=== PATIENT | male | born 1970 | race Caucasian/White ===

== ENCOUNTER 2016-12-26 11:59 | Emergency (ER) | payer BC, OTHER ==
[2016-12-26 12:13] VITALS: BMI 39.4
--- NOTE | 2016-12-26 12:38 | PDOC ---
History of Present Illness - History of Present Illness Initial Comments: 12/26/16 12:56 The patient is a 46 year old male, with a significant past medical history of hypertension (amlodipine), who presents to the emergency department with persistent but intermittent left epistaxis since Night. He reports being seen at urgent care at the onset of his nasal bleed where he was told he "may have a possible open wound. The patient states his left nostril was packed with gauze at the urgent care center, but reports changing the packing shortly after because he could not stand the pressure. He reports he has changed the packing numerous times since the onset of his epistaxis. He also reports he can taste the blood in the back of his throat. He denies history of blood thinners. He denies history of frequent nasal bleeds. He admits his air conditioner is constantly on at home. He denies chest pain, shortness of breath, headache and dizziness. He denies fever, chills, nausea, vomit, diarrhea and constipation. He denies dysuria, frequency, urgency and hematuria. Allergies: amoxicillin, penicillins, potassium clavulanate <Darcy Wolff - Last Filed: 12/26/16 13:04> <Javi Shore - Last Filed: 12/26/16 14:36> - General Chief Complaint: Nasal Bleeding Stated Complaint: NOSE BLEED Time Seen by Provider: 12/26/16 12:38 Past History <Darcy Wolff - Last Filed: 12/26/16 13:04> - Past Medical History HTN: Yes Psychiatric Problems: Yes (anxiety) - Surgical History Abdominal Surgery: Yes (HERNIA) Cholecystectomy: Yes - Immunization History Td Vaccination: Yes - Psycho/Social/Smoking Cessation Hx Anxiety: Yes Suicidal Ideation: No Smoking Status: Yes Smoking History: Current every day smoker Have you smoked in the past 12 months: Yes Number of Cigarettes Smoked Daily: 20 Information on smoking cessation initiated: Yes 'Breaking Loose' booklet given: 12/26/16 Hx Alcohol Use: No Drug/Substance Use Hx: No Substance Use Type: Alcohol <Javi Shore - Last Filed: 12/26/16 14:36> - Past Medical History Allergies/Adverse Reactions: Allergies Allergy/AdvReac Type Severity Reaction Status Date / Time amoxicillin trihydrate Allergy Itching Verified 12/26/16 12:08 [From Augmentin] Penicillins Allergy Itching Verified 12/26/16 12:08 potassium clavulanate Allergy Itching Verified 12/26/16 12:08 [From Augmentin] Home Medications: Ambulatory Orders Albuterol Sulfate Inhaler - [Ventolin HFA Inhaler -] 2 inh PO Q4H PRN #1 inh Amlodipine Besylate 5 mg PO DAILY 04/25/15 Paroxetine HCl [Paxil -] 20 mg PO DAILY 04/25/15 Review of Systems - Review of Systems HEENTM: Yes: Nose Bleeding. No: Throat Swelling Respiratory: No: Shortness of Breath Cardiac (ROS): No: Chest Pain Integumentary: No: Bruising <Javi Shore - Last Filed: 12/26/16 14:36> *Physical Exam - Vital Signs Last Vital Signs Temp Pulse Resp BP Pulse Ox 97.9 F 69 18 148/89 95 12/26/16 12:10 12/26/16 12:10 12/26/16 12:10 12/26/16 12:10 12/26/16 12:10 - Physical Exam Comments: 12/26/16 12:57 GENERAL: The patient is awake, alert, and fully oriented,obese, in no acute distress. HEAD: Normal with no signs of trauma. EYES: Pupils equal, round and reactive to light, extraocular movements intact, sclera anicteric, conjunctiva clear with no pallor. ENT: (+) small superficial laceration on left septal wall. Ears normal, nares patent, oropharynx clear without exudates. Moist mucous membranes. NECK: Normal range of motion, supple without lymphadenopathy, JVD, or masses. LUNGS: Breath sounds equal, clear to auscultation bilaterally. No wheeze/ crackles. HEART: Regular rate and rhythm, normal S1 and S2 without murmur or rub. ABDOMEN: Soft/nontender/nondistended. BS wnl. No guarding or rebound. No palpable masses. No hepatosplenomegaly. EXTREMITIES: Normal range of motion, no edema. No clubbing or cyanosis. No cords, erythema, or tenderness. NEUROLOGICAL: Cranial nerves II through XII grossly intact. Normal speech, normal gait. PSYCH: Normal mood, normal affect. SKIN: Warm, Dry, normal turgor, no rashes or lesions noted. <Darcy Wolff - Last Filed: 12/26/16 13:04> - Vital Signs Last Vital Signs Temp Pulse Resp BP Pulse Ox 97.9 F 69 18 148/89 95 12/26/16 12:10 12/26/16 12:10 12/26/16 12:10 12/26/16 12:10 12/26/16 12:10 <Javi Shore - Last Filed: 12/26/16 14:36> Medical Decision Making - Medical Decision Making 12/26/16 12:46 A portion of this note was documented by scribe services under my direction. I have reviewed the details of the note, within reason, and agree with the documentation with the following case summary and management plan written by me. 46-year-old male with history of hypertension not on blood thinners presents with persistent but intermittent epistaxis from the left naris for 2 days. Was seen at an urgent care yesterday, initially had nasal packing applied but he could not tolerate the pressure slowly removed it and applied a gauze, now presenting with persistent intermittent bleeding. No throat swelling or difficulty breathing. No history of recurrent epistaxis, denies any trauma or other stigmata of bleeding. Vital signs normal. Well-appearing and ambulating, speaking full sentences Gauze in place, no active bleeding, oropharynx is clear Upon removal of gauze, no active bleeding and naris clear. There is a 3mm linear supercifial abrasion/laceration to the septal wall of the L naris, a pinpoint portion of which still appears to be oozing. That small area was successfully cauterized, and the remainder of the naris looks very clean. No packing applied, will monitor for 30 minutes then dispo accordingly. 46-year-old with left-sided epistaxis. Vital signs stable, airway patent. Reassess, Will trial of Afrin and Afrin-soaked gauze if re-bleeds otherwise may require another packing. No indication for labs 12/26/16 13:29 No further bleeding, naris clear. Feels well, agrees with d/c plan. Provided afrin/gauze in case rebleeds. Understands precautions and return criteria. 12/26/16 13:59 Went to restroom after discharge then started bleeding again from Left nostril. Afrin spray and afrin-soaked gauze applied with temporary hemostasis. now recalls was on meloxicam for a few days, stopped 3 days ago. Will reassess after packing. 12/26/16 14:35 Again had excellent hemostasis after afrin packing, which was removed with resolution of bleed and dry naris. Wants to leave, and still strongly prefers to avoid packing. at bedside, they know to return if bleeding persists. Looks and feels well, will discharge again with ENT follow up. <Javi Shore - Last Filed: 12/26/16 14:36> *DC/Admit/Observation/Transfer - Attestations Scribe Attestion: 12/26/16 12:58 Documentation prepared by Darcy Wolff, acting as director medical writing for Javi Shore MD, <Darcy Wolff - Last Filed: 12/26/16 13:04> <Javi Shore - Last Filed: 12/26/16 14:36> Diagnosis at time of Disposition: Epistaxis - Discharge Dispostion Disposition: HOME Condition at time of disposition: Improved - Referrals Referrals: Freedom Teresa MD [Primary Care Provider] - Yan Rivers MD [Staff Physician] - - Patient Instructions Printed Discharge Instructions: DI for Nosebleed Additional Instructions: Activity as tolerated. Stay hydrated. A small laceration on the Left naris was still bleeding slowly and was cauterized. That seems to have stopped the bleeding. Avoid foreign bodies or forceful nose-blowing. If bleeding returns, spray Afrin 2 sprays, then soak the gauze with Afrin as instructed, insert into Left nostril, and apply pressure for 30 minutes. Then remove slowly. If still bleeding, return to the ER or go to ENT office. Continue your medications as previously prescribed by your physician. You should follow up with your primary doctor or ENT as needed regarding today' s emergency department visit. Return to the emergency department for any new or concerning symptoms, particularly persistent bleeding, swelling, lightheadedness or difficulty breathing.
[2016-12-26] MEDS ORDERED: OXYMETAZOLINE 0.05% NASAL SOLUTION 15 ML BOTTLE NS ONE (12:44)
[2016-12-26] MEDS ORDERED: SILVER NITRATE 75% APPLIC STCK 1 PKT EACH ONE (12:52)
[2016-12-26 13:45] VITALS: BP 142/80; PULSE 65; TEMP 97.8
== END 2016-12-26 13:45 | disposition home or self-care (01) ==
LOC: JER 11:59
PROC: 0W3Q7ZZ Control Bleeding in Respiratory Tract, Via Natural or Artificial Opening (ICD-10-PCS; principal; 2016-12-26)
DX: R04.0 Epistaxis (principal); I10 Essential (primary) hypertension; F41.9 Anxiety disorder, unspecified; F17.210 Nicotine dependence, cigarettes, uncomplicated
CPT/HCPCS: 30901-25; 99282-25

== ENCOUNTER 2019-09-06 05:09 | Emergency (ER) | payer OTHER ==
[2019-09-06 05:20] VITALS: BP 108/72; PULSE 63; TEMP 97.6; BMI 33.7
--- NOTE | 2019-09-06 05:29 | PDOC ---
*Physical Exam - Vital Signs Last Vital Signs Temp Pulse Resp BP Pulse Ox 97.6 F 63 18 108/72 97 09/06/19 05:10 09/06/19 05:10 09/06/19 05:10 09/06/19 05:10 09/06/19 05:10 Medical Decision Making - Medical Decision Making 09/06/19 05:29 Patient seen by the advanced practice provider under my supervision. Ancillary testing reviewed as necessary. I agree with plan as outlined by the advanced practice provider. Discharge - Discharge Information Problems reviewed: Yes Clinical Impression/Diagnosis: Dental abscess Condition: Stable Disposition: HOME - Additional Discharge Information Prescriptions: Clindamycin [Cleocin -] 300 mg PO Q6HPO #40 capsule Ibuprofen 600 mg PO QID PRN #20 tablet PRN Reason: Pain - Follow up/Referral Referrals: Freedom Teresa MD [Primary Care Provider] - - Patient Discharge Instructions Patient Printed Discharge Instructions: DI for Dental Pain Additional Instructions: Rinse mouth with warm salty water. Take clindamycin as prescribed Take ibuprofen every 6 hours as needed for pain Follow-up with a dentist as soon as possible - Post Discharge Activity Work/Back to School Note: Back to Work
--- NOTE | 2019-09-06 05:38 | PDOC ---
History of Present Illness - General Chief Complaint: Toothache Stated Complaint: ORAL ABSCESS Time Seen by Provider: 09/06/19 05:26 History Source: Patient - History of Present Illness Initial Comments: 09/06/19 05:33 49-year-old male complaining of left lower dental abscess for the last 2 to 3 days getting worse. Denies fever/chills. Denies trouble swallowing, neck pain. Past medical history of hypertension Past History - Past Medical History Allergies/Adverse Reactions: Allergies Allergy/AdvReac Type Severity Reaction Status Date / Time amoxicillin trihydrate Allergy Itching Verified 09/06/19 05:17 [From Augmentin] Penicillins Allergy Itching Verified 09/06/19 05:17 potassium clavulanate Allergy Itching Verified 09/06/19 05:17 [From Augmentin] Home Medications: Ambulatory Orders Albuterol Sulfate Inhaler - [Ventolin HFA Inhaler -] 2 inh PO Q4H PRN #1 inh Amlodipine Besylate 5 mg PO DAILY 04/25/15 Paroxetine HCl [Paxil -] 20 mg PO DAILY 04/25/15 Clindamycin [Cleocin -] 300 mg PO Q6HPO #40 capsule 09/06/19 Ibuprofen 600 mg PO QID PRN #20 tablet 09/06/19 COPD: No HTN: Yes Psychiatric Problems: Yes (anxiety) - Surgical History Abdominal Surgery: Yes (HERNIA) Cholecystectomy: Yes - Immunization History Td Vaccination: Yes - Psycho Social/Smoking Cessation Hx Smoking Status: Yes Smoking History: Current every day smoker Have you smoked in the past 12 months: Yes Number of Cigarettes Smoked Daily: 20 Information on smoking cessation initiated: Yes 'Breaking Loose' booklet given: 12/26/16 Hx Alcohol Use: No Drug/Substance Use Hx: No Substance Use Type: Alcohol Review of Systems - Review of Systems Able to Perform ROS?: Yes Is the patient limited Greek proficient: No HEENTM: Yes: Dental Problems *Physical Exam - Vital Signs Last Vital Signs Temp Pulse Resp BP Pulse Ox 97.6 F 63 18 108/72 97 09/06/19 05:10 09/06/19 05:10 09/06/19 05:10 09/06/19 05:10 09/06/19 05:10 - Physical Exam General Appearance: Yes: Appropriately Dressed HEENT: positive: Other (left lower molar tooth decay, gum and facial swelling. no neck swelling.) Respiratory/Chest: positive: Lungs Clear, Normal Breath Sounds Medical Decision Making - Medical Decision Making 09/06/19 05:35 A: dental abscess P: clindamycin ibuprofen Discharge - Discharge Information Problems reviewed: Yes Clinical Impression/Diagnosis: Dental abscess Disposition: HOME - Additional Discharge Information Prescriptions: Clindamycin [Cleocin -] 300 mg PO Q6HPO #40 capsule Ibuprofen 600 mg PO QID PRN #20 tablet PRN Reason: Pain - Follow up/Referral Referrals: Freedom Teresa MD [Primary Care Provider] - - Patient Discharge Instructions Patient Printed Discharge Instructions: DI for Dental Pain Additional Instructions: Rinse mouth with warm salty water. Take clindamycin as prescribed Take ibuprofen every 6 hours as needed for pain Follow-up with a dentist as soon as possible - Post Discharge Activity Work/Back to School Note: Back to Work
[2019-09-06] MEDS ORDERED: IBUPROFEN 600 MG TABLET (FP) PO ONE ×2 (05:39→05:48)
== END 2019-09-06 06:01 | disposition home or self-care (01) ==
LOC: JER 05:09
DX: K04.7 Periapical abscess without sinus (principal); I10 Essential (primary) hypertension; F41.9 Anxiety disorder, unspecified; F17.210 Nicotine dependence, cigarettes, uncomplicated
CPT/HCPCS: 99282-25

== ENCOUNTER 2020-02-16 08:41 | Day surgery (SDC) | payer OTHER ==
[2020-02-13 14:29] VITALS: BMI 33.2
== END 2020-02-16 09:25 | disposition home or self-care (01) ==
LOC: FM/S 08:41 → FASUSAT 08:41 → UNDOADMIN 08:41 → UNDODISIN 09:25 → FASUSAT 09:25
PROVIDERS: ATTEND Orthopaedic Surgery Sports Medicine
PROC: 0SR90JZ Replacement of Right Hip Joint with Synthetic Substitute, Open Approach (ICD-10-PCS; principal; 2020-02-16)
DX: M16.11 Unilateral primary osteoarthritis, right hip (principal); Z53.09 Procedure and treatment not carried out because of other contraindication

== ENCOUNTER 2020-03-21 00:28 | Emergency (ER) | payer OTHER ==
[2020-03-21 00:46] VITALS: BP 134/82; PULSE 82; TEMP 98.6; BMI 30.2
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
[2020-03-21] MEDS ORDERED: IBUPROFEN 400 MG TABLET (FP) PO ONE ×2 (01:20→01:37)
[2020-03-21] MEDS ORDERED: ACETAMINOPHEN 1000 MG/100 ML VIAL (NON FORMULARY) IVPB ONE (01:20)
[2020-03-21] MEDS ORDERED: LIDOCAINE 5% TOPICAL PATCH TP ONE (01:20)
[2020-03-21] MEDS ORDERED: ACETAMINOPHEN INJECTION 100 ML IVPB ONE (01:37)
--- NOTE | 2020-03-21 02:06 | PDOC ---
Attending Attestation - Resident Resident Name: Giovanny Perry - ED Attending Attestation I have performed the following: I have examined & evaluated the patient, The case was reviewed & discussed with the resident, I agree w/resident's findings & plan, Exceptions are as noted - HPI HPI: 03/21/20 02:00 50 yo male with PMH of osteoarthritis, sciatica, hypertension p/w R hip pain x5 months. Denies any new trauma. Is scheduled for hip replacement in 2 weeks however states pain has been getting progressively worse and he couldn't take the pain so he came to the ED. Reports he's been walking with rolling walker for the past 2 months. Denies numbness or weakness in extremities. Has been taking advil for pain with insufficient relief. No other complaints. - Physicial Exam PE: 03/21/20 02:03 General: non-toxic appearing Extremities: warm and well perfused, no bony tenderness, flexion/extension of hips intact but pt. reports pain with movement, sensation intact to light touch, no gross deformities - Medical Decision Making 03/21/20 02:04 50 yo M here with progressive R hip pain 2/2 osteoarthritis, no new trauma or bony tenderness to suggest fx, no infectious complaints or fever and patient able to range at hip so very unliekly septic joint. Plan: -pain control -reassess, anticipate d/c home with return precautions, recommend ortho f/u This clinical encounter is taking place during a federal and state health care emergency attributable to the novel Pascal Virus pandemic. The [employer] of the Department of Health and Human Services has declared, pursuant to the Public Health Service Act 319F-3 (42 U.S.C. 247d-6d), that a covered persons activities related to medical countermeasures against COVID-19 will be immune from liability under Federal and State law. 03/21/20 04:03 Pt. with improvement in pain. Ambulatory in ED. Will d/c with return precautions, patient to f/u with orthopedics Discharge - Discharge Information Problems reviewed: Yes Clinical Impression/Diagnosis: Hip pain Condition: Stable Disposition: HOME - Follow up/Referral Referrals: Freedom Teresa MD [Primary Care Provider] - - Patient Discharge Instructions Additional Instructions: Continue your home regimen of ibuprofen and tylenol for pain control. Follow up with your PCP and Orthopedic Surgeon (Dr. Cortez) for further workup of your condition. Return to the ED if your symptoms worsen and/or you experience numbness/tingling in your lower extremities, inability to move your lower extremity, difficulty urinating or defecating, fevers, chills, chest pain, shortness of breath, leg swelling. - Post Discharge Activity
[2020-03-21] MEDS ORDERED: oxyCODONE HCL 5 MG TABLET PO ONE (02:47)
[2020-03-21] MEDS ORDERED: oxyCODONE HCL 5 MG TABLET ONE (02:58)
[2020-03-21] MEDS ORDERED: LIDOCAINE 5% TOPICAL PATCH ONE (03:01)
[2020-03-21] MEDS ORDERED: LIDOCAINE PATCH REMOVAL MC SCH (22:00)
== END 2020-03-21 04:30 | disposition home or self-care (01) ==
LOC: JER 00:28
PROC: 3E0333Z Introduction of Anti-inflammatory into Peripheral Vein, Percutaneous Approach (ICD-10-PCS; principal; 2020-03-21)
DX: M25.551 Pain in right hip (principal)
CPT/HCPCS: 99284-25; J0131

== ENCOUNTER 2020-03-26 13:30 | Inpatient (IN) | payer OTHER ==
--- NOTE | 2020-03-26 13:43 | PDOC ---
History of Present Illness - General Chief Complaint: Pain Stated Complaint: HIP PAIN Time Seen by Provider: 03/26/20 13:37 History Source: Patient Exam Limitations: No Limitations - History of Present Illness Initial Comments: 03/26/20 13:46 50y M with PMH of HTN, OA, Sciatica presenting to the ER for worsening R hip pain. Pt is scheduled to have hip replacement on Wednesday but pt is unable to walk or move without pain. Pt states he has been in bed for long periods of time due to the pain. Denies numbness, saddle anesthesia, back pain, weakness, n/v/d, fever, chills, falls, chest pain, sob, abdominal pain. Does notice swelling in feet bilaterally. No recent surgeries or trauma. Not on AC PMD: Brii PMH: see hpi Meds: see med rec Allergies: see allergy list Social: denies Past History - Medical History Allergies/Adverse Reactions: Allergies Allergy/AdvReac Type Severity Reaction Status Date / Time amoxicillin trihydrate Allergy Itching Verified 03/26/20 13:31 [From Augmentin] Penicillins Allergy Itching Verified 03/26/20 13:31 potassium clavulanate Allergy Itching Verified 03/26/20 13:31 [From Augmentin] Home Medications: Ambulatory Orders Amlodipine Besylate 5 mg PO DAILY 04/25/15 Paroxetine HCl [Paxil -] 20 mg PO DAILY 04/25/15 Ibuprofen 600 mg PO QID PRN #20 tablet 09/06/19 Lisinopril [Prinivil] 10 mg PO DAILY 02/13/20 Anemia: No Asthma: No Cancer: No Cardiac Disorders: No CVA: No COPD: No CHF: No Dementia: No Diabetes: No GI Disorders: No Disorders: No HTN: Yes Hypercholesterolemia: No Liver Disease: No Psychiatric Problems: Yes (anxiety) Seizures: No Thyroid Disease: No - Surgical History Abdominal Surgery: Yes (HERNIA) Appendectomy: No Cardiac Surgery: No Cholecystectomy: Yes Lung Surgery: No Neurologic Surgery: No Orthopedic Surgery: No - Immunization History Td Vaccination: Yes - Psycho-Social/Smoking History Smoking Status: Yes Smoking History: Current every day smoker Have you smoked in the past 12 months: Yes Number of Cigarettes Smoked Daily: 20 'Breaking Loose' booklet given: 12/26/16 Review of Systems - Review of Systems Constitutional: No: Symptoms Reported HEENTM: No: Symptoms Reported Respiratory: No: Symptoms reported Cardiac (ROS): No: Symptoms Reported ABD/GI: No: Symptoms Reported : No: Symptoms Reported Musculoskeletal: Yes: See HPI Integumentary: No: Symptoms Reported Neurological: No: Symptoms reported *Physical Exam - Physical Exam General Appearance: Yes: Nourished, Appropriately Dressed, Moderate Distress HEENT: positive: EOMI, TAYLOR Neck: positive: Trachea midline, Supple. negative: Lymphadenopathy (R), Lymphadenopathy (L) Respiratory/Chest: positive: Lungs Clear, Normal Breath Sounds Cardiovascular: positive: Regular Rhythm, Regular Rate, S1, S2. negative: Edema, JVD, Murmur Vascular Pulses: Dorsalis-Pedis (R): 2+, Doralis-Pedis (L): 2+ Gastrointestinal/Abdominal: positive: Normal Bowel Sounds, Soft. negative: Tender Musculoskeletal: positive: Other (R hip pain with active and passive ROM. no swelling. ). negative: CVA Tenderness Extremity: positive: Normal Capillary Refill, Pedal Edema (to ankles bilaterally) Integumentary: positive: Normal Color, Dry, Warm Neurologic: positive: sight effects specialist II-XII NML intact, Fully Oriented, Alert, Normal Mood/Affect, Normal Response, Motor Strength /5 ED Treatment Course - LABORATORY CBC & Chemistry Diagram: 03/26/20 14:06 03/26/20 14:06 - RADIOLOGY Radiology Studies Ordered: Category Date Time Status CXRPORT [CHEST X-RAY PORTABLE*] [RAD] Stat Radiology 03/26/20 13:41 Ordered DUPLEX VASCUL US-2LEGS [US] Stat Ultrasound 03/26/20 13:41 Ordered Medical Decision Making - Medical Decision Making 03/26/20 14:13 50y M with pmh of htn, oa, sciatica presenting for R hip pain, inability to ambulate. vitals wnl pt seen here 1 week ago for pain. operation scheduled for next Wednesday. -preop labs -US to r/o DVT -pain control ekg: nsr at 91bpm. no jenniffer or depressions. no signs of acute ischemia. normal intervals, normal axis. 03/26/20 18:45 pt unable to ambulate, has pain not controlled at home. outpt surgery scheduled next week. admit for obs for pain control, pt/ot and visiting home nurse. Discharge - Discharge Information Problems reviewed: Yes Clinical Impression/Diagnosis: Hip pain, right Osteoarthritis Qualifiers: Osteoarthritis location: hip Osteoarthritis type: unspecified Laterality: right Qualified Code(s): M16.11 - Unilateral primary osteoarthritis, right hip Condition: Stable - Admission Yes - Follow up/Referral - Patient Discharge Instructions - Post Discharge Activity
[2020-03-26 14:07] VITALS: BMI 30.2
--- NOTE | 2020-03-26 14:33 | PDOC ---
Documentation entered by Ishmael Alexandra SCRIBE, acting as scribe for Mary Anne Crouch DO. Mary Anne Crouch, DO: This documentation has been prepared by the Nasrin márquez Xhesika, SCRIBE, under my direction and personally reviewed by me in its entirety. I confirm that the documentation accurately reflects all work, treatment, procedures, and medical decision making performed by me. Attending Attestation - Resident Resident Name: DelisaMary Jo - ED Attending Attestation I have performed the following: I have examined & evaluated the patient, The case was reviewed & discussed with the resident, I agree w/resident's findings & plan, Exceptions are as noted - HPI HPI: 03/26/20 13:38 The patient is a 50 year old male with a significant PMH of who presents to the emergency department sent in by Dr. Russ for preop labs and admission for hip OA. Pt is scheduled for THR on Wednesday. Pt state he is not able to stand or care for himself. The patient denies chest pain, shortness of breath, headache and dizziness. Denies fever, chills, cough, nausea, vomiting, diarrhea. Allergies: NKDA PCP:Brii - Physicial Exam PE: 03/26/20 13:40 GENERAL: Awake, alert, and fully oriented, in no acute distress HEAD: No signs of trauma NECK: Normal ROM, supple, no lymphadenopathy, JVD, or masses LUNGS: Breath sounds equal, clear to auscultation bilaterally. No wheezes, and no crackles HEART: Regular rate and rhythm, normal S1 and S2, no murmurs, rubs or gallops ABDOMEN: Soft, nontender, normoactive bowel sounds. No guarding, no rebound. No masses EXTREMITIES: 2+ BLE edema and mild erythema. +R hip tenderness. Moving all extremities. Limited range of motion. No clubbing or cyanosis. NEUROLOGICAL: Cranial nerves II through XII grossly intact. SKIN: Warm, Dry, normal turgor - Medical Decision Making 03/26/20 14:31 a/p: 50yo male from home with worsening R OA hip pain -scheduled for OR with Dr. Russ for next wednesday, but unable to ambulate, get to the bathroom or care for himself -now with leg swelling, no calf ttp -will send preop labs -will send for duplex ultrasound to eval dvt prior to or -will need admission at to [facility] pending surgery 03/26/20 14:44 microblog sent to [facility] for admission 03/26/20 15:18 cxr clear 03/26/20 16:31 case discussed with [facility] who accepts pt to obs pt eval and social work eval placed Heart Score/ECG Review - ECG Intrepretation Comment:: 03/26/20 14:32 sinus at 91, nl axis, nl interval, no acute st/t wave findings Discharge - Discharge Information Problems reviewed: Yes Clinical Impression/Diagnosis: Hip pain, right Osteoarthritis Qualifiers: Osteoarthritis location: hip Osteoarthritis type: unspecified Laterality: right Qualified Code(s): M16.11 - Unilateral primary osteoarthritis, right hip Condition: Stable - Follow up/Referral Referrals: Freedom Teresa MD [Primary Care Provider] - - Patient Discharge Instructions - Post Discharge Activity
[2020-03-26 14:58] LABS: INR 1.06 (0.83-1.09); PROTHROMBIN TIME (PATIENT) 12.5 SEC (9.7-13.0)
[2020-03-26 15:01] LABS: ACTIVATED PTT 28.2 SECONDS (25.2-36.5)
[2020-03-26 15:03] LABS: BASO % 0.1 % (0-2.0); EOS % 0.1 % (0-4.5); HEMATOCRIT 38.9 % (35.4-49); HEMOGLOBIN 13.9 GM/dL (11.7-16.9); LYMPH % 7.7 % (8-40); MCH 32.6 pg (25.7-33.7); MCHC 35.6 g/dl (32.0-35.9); MEAN CELL VOLUME 91.7 fl (80-96); MEAN PLT VOLUME 8.3 fl (7.5-11.1); NEUT % 83.1 % (42.8-82.8); PLATELET COUNT 304 K/MM3 (134-434); RBC 4.25 M/mm3 (4.00-5.60); RDW 12.9 % (11.9-15.9); WHITE BLOOD COUNT 12.4 K/mm3 (4.0-10.0)
[2020-03-26 15:20] LABS: ALBUMIN 3.4 g/dl (3.4-5.0); BILIRUBIN,TOTAL 0.9 mg/dL (0.2-1); BLOOD UREA NITROGEN 4.8 mg/dL (7-18); CALCIUM 8.8 mg/dL (8.5-10.1); CREATININE 0.6 mg/dL (0.55-1.3); POTASSIUM 4.4 mmol/L (3.5-5.1); TOT PROT 7.2 g/dl (6.4-8.2)
--- OUTSIDE RECORDS SUMMARY | 2020-03-26 16:57 | XMS ---
:1970 Author Organization [facility] Support Name Relationship Address Phone UE, UNEMPLOYED Unavailable Unavailable Unavailable UE Unavailable Unavailable Unavailable [place] [address] [employer] [address] [place] [id number] CONSTANZA FELICIANO Other [address] [place] [address] Re-disclosure Warning The records that you are about to access may contain information from federally- assisted alcohol or drug abuse programs. If such information is present, then the following federally mandated warning applies: This information has been disclosed to you from records protected by federal confidentiality rules (42 CFR part 2). The federal rules prohibit you from making any further disclosure of this information unless further disclosure is expressly permitted by the written consent of the person to whom it pertains or as otherwise permitted by 42 CFR part 2. A general authorization for the release of medical or other information is NOT sufficient for this purpose. The Federal rules restrict any use of the information to criminally investigate or prosecute any alcohol or drug abuse patient.The records that you are about to access may contain highly sensitive health information, the redisclosure of which is protected by Article 27-F of the [facility] Public Health law. If you continue you may haveaccess to information: Regarding HIV / AIDS; Provided by facilities licensed or operated by the [facility] Office of Mental Health; or Provided by the [facility] Office for People With Developmental Disabilities. If such information is present, then the following [facility] mandated warning applies: This information has been disclosed to you from confidential records which are protected by state law. State law prohibits you from making any further disclosure of this information without the specific written consent of the person to whom it pertains, or as otherwise permitted by law. Any unauthorized further disclosure in violation of state law may result in a fine or correction sentence or both. A general authorization for the release of medical or other information is NOT sufficient authorization for further disclosure. Insurance Providers Payer name Policy type Policy ID Covered Covered democrat's Policy P sarah / Coverage democrat ID relationship to Landon Inf ormation type landon GERMAN [id number] EXCHANGE GERMAN [id number] 800 HEALTH NON CAP Results ID Date Data Source [id number] 02/12/2020 01:24:00 PM EDT [facility] Name Value Range Interpretation Description Data Sup porting Code Source(s) Document(s ) SARS [facility] coronavirus 2 RNA This lab was ordered by [facility] and reported by [facility]. Procedure
--- NOTE | 2020-03-26 22:50 | HP ---
CHIEF COMPLAINT: here with right hip pain and states "I am not able to walk". PCP: Dr. Freedom Teresa HISTORY OF PRESENT ILLNESS: 50 year old male with a past medical history of hypertension(on meds), depression, osteoarthritis and sciatica who presented with symptoms of worsening right hip pain. Patient is scheduled to have hip replacement on Wednesday with Dr. Ozzy Russ at [facility]. Patient reports he is unable to ambulate with severe pain he is having. Patient reports he has been in bed for long periods of time due to his pain. He denies numbness, back pain, weakness, n/v/d, fever, chills, falls, syncopy, chest pain, sob, abdominal pain. He is not on anticoagulation. ER course was notable for: (1)leukocytosis (WBC 12.4) (2)hyponatremia (sodium 120) Recent Travel: no PAST MEDICAL HISTORY: hypertension osteoarthritis sciatica PAST SURGICAL HISTORY: no Social History: Smoking:yes, current every day smoker Alcohol:no Drugs: no Allergies amoxicillin trihydrate [From Augmentin] Allergy (Verified 03/26/20 13:31) Itching Penicillins Allergy (Verified 03/26/20 13:31) Itching potassium clavulanate [From Augmentin] Allergy (Verified 03/26/20 13:31) Itching HOME MEDICATIONS: Home Medications Medication Instructions Recorded Amlodipine Besylate 5 mg PO DAILY 04/25/15 Paroxetine HCl [Paxil -] 20 mg PO DAILY 04/25/15 Ibuprofen 600 mg PO QID PRN #20 tablet 09/06/19 Lisinopril [Prinivil] 10 mg PO DAILY 02/13/20 REVIEW OF SYSTEMS CONSTITUTIONAL: Absent: fever, chills, diaphoresis, generalized weakness, malaise, loss of appetite, weight change HEENT: Absent: rhinorrhea, nasal congestion, throat pain, throat swelling, difficulty swallowing, mouth swelling, ear pain, eye pain, visual changes CARDIOVASCULAR: Absent: chest pain, syncope, palpitations, irregular heart rate, lightheadedness, peripheral edema RESPIRATORY: Absent: cough, shortness of breath, dyspnea with exertion, orthopnea, wheezing, stridor, hemoptysis GASTROINTESTINAL: Absent: abdominal pain, abdominal distension, nausea, vomiting, diarrhea, constipation, melena, hematochezia GENITOURINARY: Absent: dysuria, frequency, urgency, hesitancy, hematuria, flank pain, genital pain MUSCULOSKELETAL: Absent: myalgia, arthralgia, joint swelling, back pain, neck pain, severe right hip pain with difficulty with ambulation SKIN: Absent: rash, itching, pallor HEMATOLOGIC/IMMUNOLOGIC: Absent: easy bleeding, easy bruising, lymphadenopathy, frequent infections ENDOCRINE: Absent: unexplained weight gain, unexplained weight loss, heat intolerance, cold intolerance NEUROLOGIC: Absent: headache, focal weakness or paresthesias, dizziness, unsteady gait, seizure, mental status changes, bladder or bowel incontinence PSYCHIATRIC: Absent: anxiety, depression, suicidal or homicidal ideation, hallucinations. PHYSICAL EXAMINATION Vital Signs - 24 hr 03/26/20 03/26/20 03/26/20 13:31 13:35 17:27 Temperature 98.2 F 98 F 98.6 F Pulse Rate 88 Pulse Rate [ 78 71 Left Apical] Respiratory 16 16 16 Rate Blood Pressure 124/69 Blood Pressure 135/85 127/75 [Right Arm] O2 Sat by Pulse 95 98 97 Oximetry (%) 03/26/20 22:08 Temperature 98.4 F Pulse Rate Pulse Rate [ 65 Left Apical] Respiratory 16 Rate Blood Pressure Blood Pressure 125/68 [Right Arm] O2 Sat by Pulse 100 Oximetry (%) General no acute distress Vital signs reviewed afebrile Neuro no focal deficits Neck no JVD Lungs CTA nonlabored breathing effort no use of accessory muscles no rales no wheezing Heart s1s2 rate regular Abdomen soft nontender nondistended Extremities warm to touch no pitting edema no cyanosis linited ROM to right hip Skin nail beds and lips pink Laboratory Results - last 24 hr 03/26/20 03/26/20 03/26/20 14:06 14:06 14:06 WBC 12.4 H RBC 4.25 Hgb 13.9 Hct 38.9 MCV 91.7 MCH 32.6 MCHC 35.6 RDW 12.9 Plt Count 304 MPV 8.3 Absolute Neuts (auto) 10.3 H Neutrophils % 83.1 H Lymphocytes % 7.7 L Monocytes % 9.0 Eosinophils % 0.1 Basophils % 0.1 Nucleated RBC % 0 PT with INR 12.50 INR 1.06 PTT (Actin FS) 28.2 Sodium 120 L Potassium 4.4 Chloride 86 L Carbon Dioxide 25 Anion Gap 10 BUN 4.8 L Creatinine 0.6 Est GFR (CKD-EPI)AfAm 135.87 Est GFR (CKD-EPI)NonAf 117.23 Random Glucose 81 Calcium 8.8 Total Bilirubin 0.9 AST 98 H ALT 55 Alkaline Phosphatase 99 Total Protein 7.2 Albumin 3.4 Blood Type Antibody Screen 03/26/20 14:06 WBC RBC Hgb Hct MCV MCH MCHC RDW Plt Count MPV Absolute Neuts (auto) Neutrophils % Lymphocytes % Monocytes % Eosinophils % Basophils % Nucleated RBC % PT with INR INR PTT (Actin FS) Sodium Potassium Chloride Carbon Dioxide Anion Gap BUN Creatinine Est GFR (CKD-EPI)AfAm Est GFR (CKD-EPI)NonAf Random Glucose Calcium Total Bilirubin AST ALT Alkaline Phosphatase Total Protein Albumin Blood Type A POSITIVE Antibody Screen Negative ASSESSMENT/PLAN: 50 year old male with a past medical history of hypertension(on meds) ,osteoarthritis and sciatica who presented with symptoms of worsening right hip pain and was unable to ambulate He was found to have leukocytosis and severe hyponatremia. Admit to OBS status for pain control #1 right hip pain(severe) has leukocytosis (likely inflammatory), afebrile, nontachyccardic pending surgery with Dr. Ozzy Russ of Orthopedics on Wednesday at [facility] --c/w pain control --gave 1 dose of IV morphine 2 mg once --oxycodone 1 tab po q6h as needed --Orthopedics- Dr. Ozzy Russ consulted and further recs as per Orthopedics in the am --check sed rate --physical therapy consulted #2 hyponatremia (severe) 1/2 NS @ 75c /hr infusing renal studies normal --Nephrology- Dr. Ramirez consulted --monitor for neurological symptoms --repeat BMP in am #3 hypertension controlled --c/w lisinopril and amlodipine #4 transaminitis ast 98, alt 55 --avoid excessive tylenol (on percocet for severe right hip pain) --repeat LFT's in am FEN IVF 1/2 NS @ 75cc/hr BMP daily and replete electrolytes as needed regular diet DVT Prophlaxsis SCD's Family Medical History Family History: Unremarkable Visit type - Emergency Visit Emergency Visit: Yes ED Registration Date: 03/26/20 Care time: The patient presented to the Emergency Department on the above date and was hospitalized for further evaluation of their emergent condition. - New Patient This patient is new to me today: Yes Date on this admission: 03/26/20 - Critical Care Critical Care patient: No
[2020-03-26] MEDS ORDERED: SODIUM CHLORIDE 0.45% 1,000 ML IV SCH (23:00)
[2020-03-26] MEDS ORDERED: MORPHINE SULFATE 2 MG/ML VIAL IVPUSH ONE (23:00)
[2020-03-26] MEDS ORDERED: MORPHINE SULFATE 2 MG/ML VIAL ONE (23:03)
[2020-03-27] MEDS: oxyCODONE HCL 5 MG TABLET PO PRN ×3 (04:07→17:52)
[2020-03-27] MEDS: ACETAMINOPHEN 325 MG TABLET (FP) PO PRN ×3 (04:08→17:52)
[2020-03-27 08:26] LABS: HEMOGLOBIN 13.7 GM/dL (11.7-16.9); MCH 32.9 pg (25.7-33.7); MCHC 35.2 g/dl (32.0-35.9); MEAN CELL VOLUME 93.4 fl (80-96); PLATELET COUNT 301 K/MM3 (134-434); RBC 4.18 M/mm3 (4.00-5.60); RDW 13.2 % (11.9-15.9); WHITE BLOOD COUNT 8.5 K/mm3 (4.0-10.0)
[2020-03-27 08:50] LABS: ALBUMIN 3.1 g/dl (3.4-5.0); BILIRUBIN,DIRECT 0.3 mg/dL (0.0-0.2); BLOOD UREA NITROGEN 6.8 mg/dL (7-18); CALCIUM 8.3 mg/dL (8.5-10.1); CREATININE 0.5 mg/dL (0.55-1.3); MAGNESIUM 2.5 mg/dL (1.8-2.4); POTASSIUM 3.9 mmol/L (3.5-5.1); TOT PROT 6.8 g/dl (6.4-8.2)
--- NOTE | 2020-03-27 10:02 | EKG ---
Test Reason : Blood Pressure : / mmHG Vent. Rate : 091 BPM Atrial Rate : 091 BPM P-R Int : 144 ms QRS Dur : 096 ms QT Int : 370 ms P-R-T Axes : 073 070 041 degrees QTc Int : 455 ms POOR DATA QUALITY, INTERPRETATION MAY BE ADVERSELY AFFECTED NORMAL SINUS RHYTHM NORMAL ECG NO PREVIOUS ECGS AVAILABLE Confirmed by Hair Bass ([id number]) on 03/27/2020 10:02:38 AM Referred By: Confirmed By:Hair Bass
[2020-03-27] MEDS: PARoxetine HCL 20 MG TABLET PO SCH (10:55)
[2020-03-27] MEDS: LISINOPRIL 10 MG TABLET PO SCH (10:55)
[2020-03-27] MEDS: amLODIPine BESYLATE 5 MG TABLET (FP) PO SCH (10:56)
[2020-03-27] MEDS ORDERED: *DONT ORDER IVPB SCH (11:30)
[2020-03-27 12:34] LABS: EPI CELLS 1 /uL (0-25.1); HYALINE CASTS 0 /uL (0-3.1); PH,URINE 6.5 (5.0-8.0); URINE APPEARANCE CLEAR; URINE BACTERIA 20 /uL (0-1359); URINE BILIRUBIN NEGATIVE (NEGATIVE); URINE COLOR YELLOW; URINE GLUCOSE (UA) NEGATIVE (NEGATIVE); URINE KETONE TRACE (NEGATIVE); URINE LEUK ESTERASE NEGATIVE (NEGATIVE); URINE NITRITE NEGATIVE (NEGATIVE); URINE PROTEIN NEGATIVE (NEGATIVE); URINE RBC 11 /uL (0-23.9); URINE UROBILINOGEN 0.2 mg/dL (0.2-1.0); URINE WBC 3 /uL (0-25.8)
[2020-03-27] MEDS ORDERED: DEXTROSE 5%-WATER - 1,000 ML IV SCH (12:45)
--- NOTE | 2020-03-27 13:22 | CONSULT ---
Consultation: REQUESTING PROVIDER: Dr. Daigle CONSULT REQUEST: We have been asked to medically evaluate this patient for hyponatremia. HISTORY OF PRESENT ILLNESS: Patient is a 50 year old male with history of hypertension, depression, osteoarthritis and sciatica who presented with complaint of worsening right hip pain. Noted to be hyponatremic to 120, and started on 0.45% normal saline (received approx 1 Liter). BMP this morning revealed significant increase of sodium to 130. Patient admits that he had been taking diuretic (believes it was Hydrochlorothiazide) in the past, however was recently discontinued by his primary care physician due to concerns with his sodium. He endorses currently taking Lisinopril, and Amlodipine. Denies polydipsia. Denies subjective fevers, chills, shortness of breath, chest pain, palpitations, abdominal pain, nausua, vomiting, dysuria, hematuria. REVIEW OF SYSTEMS: As per HPI PHYSICAL EXAMINATION Vital Signs - 24 hr 03/26/20 03/26/20 03/26/20 13:31 13:35 17:27 Temperature 98.2 F 98 F 98.6 F Pulse Rate 88 Pulse Rate [ 78 71 Left Apical] Respiratory 16 16 16 Rate Blood Pressure 124/69 Blood Pressure 135/85 127/75 [Right Arm] O2 Sat by Pulse 95 98 97 Oximetry (%) 03/26/20 03/26/20 03/27/20 22:08 23:27 02:00 Temperature 98.4 F 98.7 F 98.5 F Pulse Rate 70 78 Pulse Rate [ 65 Left Apical] Respiratory 16 20 20 Rate Blood Pressure 118/57 L 136/70 Blood Pressure 125/68 [Right Arm] O2 Sat by Pulse 100 96 96 Oximetry (%) 03/27/20 03/27/20 03/27/20 02:39 06:00 11:00 Temperature 98.2 F 97.9 F Pulse Rate 71 72 Pulse Rate [ Left Apical] Respiratory 20 18 Rate Blood Pressure 122/76 116/65 Blood Pressure [Right Arm] O2 Sat by Pulse 96 97 Oximetry (%) GENERAL: The patient is awake, alert, and fully oriented, in no acute distress. HEAD: Normocephalic, atraumatic. EYES: PERRL, extraocular movements intact, sclera anicteric, conjunctiva clear. ENT: Oropharynx clear, without erythema or exudates. Moist mucous membranes. NECK: Trachea midline, full range of motion. Supple without lymphadenopathy. LUNGS: Breath sounds equal, clear to auscultation bilaterally. No wheezes, no crackles. No accessory muscle use. HEART: Regular rate and rhythm. S1, S2 without murmur, rub or gallop. ABDOMEN: Obese abdomen. Soft, nondistended, nontender to light and deep palpation x4 quadrants. No rebound tenderness, no guarding. Normoactive bowel sounds x4 quadrants. No hepatosplenomegaly, no masses appreciated. EXTREMITIES: 2+ radial, dorsalis pedis pulses bilaterally. Warm, well-perfused. No lower extremity edema bilaterally. NEUROLOGICAL: Cranial nerves II through XII grossly intact. Normal speech. No gross focal deficits. PSYCH: Normal mood, normal affect upon my encounter. SKIN: Warm, dry. Laboratory Results - last 24 hr 03/26/20 03/26/20 03/26/20 14:06 14:06 14:06 WBC 12.4 H RBC 4.25 Hgb 13.9 Hct 38.9 MCV 91.7 MCH 32.6 MCHC 35.6 RDW 12.9 Plt Count 304 MPV 8.3 Absolute Neuts (auto) 10.3 H Neutrophils % 83.1 H Lymphocytes % 7.7 L Monocytes % 9.0 Eosinophils % 0.1 Basophils % 0.1 Nucleated RBC % 0 ESR PT with INR 12.50 INR 1.06 PTT (Actin FS) 28.2 Sodium 120 L Potassium 4.4 Chloride 86 L Carbon Dioxide 25 Anion Gap 10 BUN 4.8 L Creatinine 0.6 Est GFR (CKD-EPI)AfAm 135.87 Est GFR (CKD-EPI)NonAf 117.23 Random Glucose 81 Serum Osmolality Calcium 8.8 Magnesium Total Bilirubin 0.9 Direct Bilirubin AST 98 H ALT 55 Alkaline Phosphatase 99 Total Protein 7.2 Albumin 3.4 Urine Color Urine Appearance Urine pH Ur Specific [place] Urine Protein Urine Glucose (UA) Urine Ketones Urine Blood Urine Nitrite Urine Bilirubin Urine Urobilinogen Ur Leukocyte Esterase Urine WBC (Auto) Urine RBC (Auto) Urine Casts (Auto) U Epithel Cells (Auto) Urine Bacteria (Auto) Urine Osmolality Ur Random Creatinine Ur Random Sodium Blood Type Antibody Screen 03/26/20 03/27/20 03/27/20 14:06 07:35 07:35 WBC 8.5 RBC 4.18 Hgb 13.7 Hct 39.0 MCV 93.4 MCH 32.9 MCHC 35.2 RDW 13.2 Plt Count 301 MPV 8.0 Absolute Neuts (auto) Neutrophils % Lymphocytes % Monocytes % Eosinophils % Basophils % Nucleated RBC % ESR PT with INR INR PTT (Actin FS) Sodium 130 L Potassium 3.9 Chloride 93 L Carbon Dioxide 29 Anion Gap 8 BUN 6.8 L Creatinine 0.5 L Est GFR (CKD-EPI)AfAm 146.45 Est GFR (CKD-EPI)NonAf 126.36 Random Glucose 71 L Serum Osmolality Calcium 8.3 L Magnesium 2.5 H Total Bilirubin Direct Bilirubin AST ALT Alkaline Phosphatase Total Protein Albumin Urine Color Urine Appearance Urine pH Ur Specific [place] Urine Protein Urine Glucose (UA) Urine Ketones Urine Blood Urine Nitrite Urine Bilirubin Urine Urobilinogen Ur Leukocyte Esterase Urine WBC (Auto) Urine RBC (Auto) Urine Casts (Auto) U Epithel Cells (Auto) Urine Bacteria (Auto) Urine Osmolality Ur Random Creatinine Ur Random Sodium Blood Type A POSITIVE Antibody Screen Negative 03/27/20 03/27/20 03/27/20 07:35 07:35 09:30 WBC RBC Hgb Hct MCV MCH MCHC RDW Plt Count MPV Absolute Neuts (auto) Neutrophils % Lymphocytes % Monocytes % Eosinophils % Basophils % Nucleated RBC % ESR 72 H PT with INR INR PTT (Actin FS) Sodium Potassium Chloride Carbon Dioxide Anion Gap BUN Creatinine Est GFR (CKD-EPI)AfAm Est GFR (CKD-EPI)NonAf Random Glucose Serum Osmolality 265 L Calcium Magnesium Total Bilirubin 1.0 Direct Bilirubin 0.3 H AST 79 H ALT 52 Alkaline Phosphatase 88 Total Protein 6.8 Albumin 3.1 L Urine Color Urine Appearance Urine pH Ur Specific [place] Urine Protein Urine Glucose (UA) Urine Ketones Urine Blood Urine Nitrite Urine Bilirubin Urine Urobilinogen Ur Leukocyte Esterase Urine WBC (Auto) Urine RBC (Auto) Urine Casts (Auto) U Epithel Cells (Auto) Urine Bacteria (Auto) Urine Osmolality Ur Random Creatinine 78.0 Ur Random Sodium < 18 L Blood Type Antibody Screen 03/27/20 03/27/20 09:30 09:30 WBC RBC Hgb Hct MCV MCH MCHC RDW Plt Count MPV Absolute Neuts (auto) Neutrophils % Lymphocytes % Monocytes % Eosinophils % Basophils % Nucleated RBC % ESR PT with INR INR PTT (Actin FS) Sodium Potassium Chloride Carbon Dioxide Anion Gap BUN Creatinine Est GFR (CKD-EPI)AfAm Est GFR (CKD-EPI)NonAf Random Glucose Serum Osmolality Calcium Magnesium Total Bilirubin Direct Bilirubin AST ALT Alkaline Phosphatase Total Protein Albumin Urine Color Yellow Urine Appearance Clear Urine pH 6.5 Ur Specific [place] 1.007 L Urine Protein Negative Urine Glucose (UA) Negative Urine Ketones Trace H Urine Blood Trace Urine Nitrite Negative Urine Bilirubin Negative Urine Urobilinogen 0.2 Ur Leukocyte Esterase Negative Urine WBC (Auto) 3 Urine RBC (Auto) 11 Urine Casts (Auto) 0 U Epithel Cells (Auto) 1 Urine Bacteria (Auto) 20 Urine Osmolality 211 L Ur Random Creatinine Ur Random Sodium Blood Type Antibody Screen Active Medications Generic Name Dose Route Start Last Admin Trade Name Freq PRN Reason Stop Dose Admin Acetaminophen 325 mg 03/26/20 23:00 03/27/20 10:57 Tylenol - PO 325 mg Q6H PRN Administration PAIN LEVEL 6-10 Amlodipine Besylate 5 mg 03/27/20 10:00 03/27/20 10:56 Norvasc - PO 5 mg DAILY KANWAL Administration Dextrose 1,000 mls @ 50 mls/hr 03/27/20 12:45 D5w - IV ASDIR KANWAL Lisinopril 10 mg 03/27/20 10:00 03/27/20 10:55 Prinivil PO 10 mg DAILY KANWAL Administration Oxycodone HCl 5 mg 03/26/20 23:00 03/27/20 10:56 Roxicodone - PO 5 mg Q6H PRN Administration PAIN LEVEL 6-10 Paroxetine HCl 20 mg 03/27/20 10:00 03/27/20 10:55 Paxil - PO 20 mg DAILY KANWAL Administration ASSESSMENT/PLAN: Patient is a 50 year old male with history of hypertension, depression, osteoarthritis and sciatica who presented with complaint of worsening right hip pain. Impression: Hyponatremia Hypertension Osteoarthritis Depression Sciatica Hip pain Plan: Suspect hyponatremia secondary to recent hydrochlrothiazide diuretic. Chart review reveals HCTZ was a home medication in February of this year. Sodium has been over-corrected. Recommend starting Dextrose 5% water at 50mL/ hour. Discontinued 0.45% sodium chloride. Follow repeat BMP- Ideally would not want to increase sodium greater than 8mmol /L over 24 hours. Monitor intake, output Avoid nephrotoxic agents Would avoid HCTZ going forward. Disposition: We will continue to follow the patient. Thank you for this consultative opportunity. Visit type - Emergency Visit Emergency Visit: Yes ED Registration Date: 03/26/20 Care time: The patient presented to the Emergency Department on the above date and was hospitalized for further evaluation of their emergent condition. - New Patient This patient is new to me today: Yes Date on this admission: 03/27/20 - Critical Care Critical Care patient: No ATTENDING PHYSICIAN STATEMENT I saw and evaluated the patient. I reviewed the resident's note and discussed the case with the resident. I agree with the resident's findings and plan as documented. SUBJECTIVE: OBJECTIVE: ASSESSMENT AND PLAN:
--- NOTE | 2020-03-27 13:57 | PN ---
Teaching Attending Note Name of Resident: Ashish Stephens (Nephrology) ATTENDING PHYSICIAN STATEMENT I saw and evaluated the patient. I reviewed the resident's note and discussed the case with the resident. I agree with the resident's findings and plan as documented. Renal Pt is a 50 year old male with pmhx of htn, depression and arthitis who persented with hip pain. He was found to be hyponatremic. His sodium was 120. He was started on fluids and it improved to 130 today. He is awake and alert. He was on a thiazide. pmhx htn depression sciatica arthritis social denies ros neg allergies amoxicillin pcn augmentin Laboratory Tests 03/26/20 03/26/20 03/27/20 14:06 14:06 07:35 WBC 12.4 H 8.5 Sodium 120 L Creatinine 0.6 Ur Specific [place] Urine Ketones Urine Osmolality Ur Random Sodium 03/27/20 03/27/20 03/27/20 07:35 09:30 09:30 WBC Sodium 130 L Creatinine 0.5 L Ur Specific [place] Urine Ketones Urine Osmolality 211 L Ur Random Sodium < 18 L 03/27/20 09:30 WBC Sodium Creatinine Ur Specific [place] 1.007 L Urine Ketones Trace H Urine Osmolality Ur Random Sodium Last Vital Signs Temp Pulse Resp BP Pulse Ox 97.9 F 72 18 116/65 97 03/27/20 11:00 03/27/20 11:00 03/27/20 11:00 03/27/20 11:00 03/27/20 06:00 Current Medications Generic Name Dose Route Start Last Admin Trade Name Freq PRN Reason Stop Dose Admin Acetaminophen 325 mg 03/26/20 23:00 03/27/20 10:57 Tylenol - PO 325 mg Q6H PRN Administration PAIN LEVEL 6-10 Amlodipine Besylate 5 mg 03/27/20 10:00 03/27/20 10:56 Norvasc - PO 5 mg DAILY KANWAL Administration Dextrose 1,000 mls @ 50 mls/hr 03/27/20 12:45 D5w - IV ASDIR KANWAL Lisinopril 10 mg 03/27/20 10:00 03/27/20 10:55 Prinivil PO 10 mg DAILY KANWAL Administration Oxycodone HCl 5 mg 03/26/20 23:00 03/27/20 10:56 Roxicodone - PO 5 mg Q6H PRN Administration PAIN LEVEL 6-10 Paroxetine HCl 20 mg 03/27/20 10:00 03/27/20 10:55 Paxil - PO 20 mg DAILY KANWAL Administration cardio s1s2 pulm clear gi soft ext trace edema neuro awake Impression 1. hyponatremia 2. htn 3. depression 4. sciatica 5. arthritis Plan - start d5w to slow the rate of correction - avoid a change in sodium of greater than 6 to 8 in 24 hours - stop hctz and would avoid - check cpk - paxil can also contribute to hyponatremia
--- NOTE | 2020-03-27 13:58 | PN ---
Teaching Attending Note Name of Resident: Isaiah Daigle ATTENDING PHYSICIAN STATEMENT I saw and evaluated the patient. I reviewed the resident's note and discussed the case with the resident. I agree with the resident's findings and plan as documented. SUBJECTIVE: Seen and examined at bedside. Sodium riccardo from 120-130 overnight status post in itiation of half-normal saline prior to diagnosis of because of hyponatremia. Patient started on D5W at 50 cc/h with every 4 hours BMPs. OBJECTIVE Last Vital Signs Temp Pulse Resp BP Pulse Ox 97.9 F 72 18 116/65 97 03/27/20 11:00 03/27/20 11:00 03/27/20 11:00 03/27/20 11:00 03/27/20 06:00 PE: Per resident note Labs/Imaging: reviewed ASSESSMENT/PLAN 50-year-old male past medical history of hypertension, osteoarthritis, sciatica with plan for hip surgery next week presented with intractable hip pain and unable to ambulate, found to have severe hyponatremia #Hyponatremia Patient reports sodium was low at PCP office a week or 2 ago but does not remember level. States medication was discontinued which may have been hydrochlorothiazide Confirm medical history Overcorrection of sodium with fluids overnight: Nephrology on board D5W at 50 cc/h Check BMP every 4 hours Goal max correction sodium of 10 per 24 hours #Right hip pain: Severe Pending surgery with Dr. Ozzy Russ of orthopedics on Wednesday at [facility] Pain control Physical therapy Patient is currently not cleared for surgery due to hyponatremia #Hypertension Continue home meds
[2020-03-27 14:34] LABS: CALCIUM 8.8 mg/dL (8.5-10.1); CREATININE 0.6 mg/dL (0.55-1.3); MAGNESIUM 2.6 mg/dL (1.8-2.4); POTASSIUM 3.9 mmol/L (3.5-5.1)
[2020-03-27 16:52] LABS: BLOOD UREA NITROGEN 7.7 mg/dL (7-18); CALCIUM 8.8 mg/dL (8.5-10.1); CREATININE 0.7 mg/dL (0.55-1.3)
--- NOTE | 2020-03-27 17:04 | CONSULT ---
Consult - text type - Consultation Consultation Note: ORTHOPEDIC SURGERY CONSULTATION NOTE Department of Orthopedic Surgery HISTORY OF PRESENT ILLNESS Mr. Ford is a 50 year old male who presents to [facility] with severe right hip pain, and inability to ambulate or take care of himself at home. The patient called my office yesterday stating he was in severe pain and unable to get out of his bed, and that he needed to come to the emergency room as he's unable to take care of himself. The orthopedic service was consulted for severe hip pain. The patient was initially scheduled for a hip replacement 1 month ago, but was postponed due to infected teeth. The patient was rescheduled for 04/01/2020. The patient notes severe hip pain to the point where he cannot not ambulate or get out of bed. Denies any other injuries. Denies numbness, tingling or other constitutional complaints. The patient works as at [employer]. Endorses tobacco use, denies drug use, alcohol is > 5 drinks a week as per my office notes. The patient lives at home and uses no assistive devices at baseline. FAMILY HISTORY non-contributory REVIEW OF SYMPTOMS A twelve-point review of systems was performed and was negative except as noted in HPI. PHYSICAL EXAM Constitutional: Alert and oriented to person, place, and time. Appears well- developed and well-nourished. No acute distress, appropriate mood and affect. Right Lower Extremity: Skin warm, dry, and intact; no lesions, rashes or ulcers noted. Muscle mass equal and symmetric to contralateral side. No atrophy noted. No masses or effusions noted. Tender to palpation at the greater trochanter; nontender throughout rest of extremity. No cords or calf tenderness No significant calf/ankle edema. LROM of the hip, consistent with my office examination. Full passive and active ROM of the knee and ankle and foot, free from pain. Joints stable with no pathologic laxity. EHL/TA/GS motor intact; SILT distally; 2+ DP pulses; Cap refill brisk. Tone and reflexes normal. Active Problems Problem Status Category Onset Hip pain, right Acute Medical Osteoarthritis Acute Medical Social History Smoking history Current every day smoker Aproximately how many 20 cigarettes per day Hx Alcohol Use YES Allergies Allergy/AdvReac Type Severity Reaction Status Date / Time amoxicillin trihydrate Allergy Itching Verified 09/22/20 13:31 [From Augmentin] Penicillins Allergy Itching Verified 03/26/20 13:31 potassium clavulanate Allergy Itching Verified 03/26/20 13:31 [From Augmentin] Active Medications Generic Name Dose Route Start Last Admin Trade Name Freq PRN Reason Stop Dose Admin Acetaminophen 325 mg 03/26/20 23:00 03/27/20 10:57 Tylenol - PO 325 mg Q6H PRN Administration PAIN LEVEL 6-10 Amlodipine Besylate 5 mg 03/27/20 10:00 03/27/20 10:56 Norvasc - PO 5 mg DAILY KANWAL Administration Lisinopril 10 mg 03/27/20 10:00 03/27/20 10:55 Prinivil PO 10 mg DAILY KANWAL Administration Oxycodone HCl 5 mg 03/26/20 23:00 03/27/20 10:56 Roxicodone - PO 5 mg Q6H PRN Administration PAIN LEVEL 6-10 Paroxetine HCl 20 mg 03/27/20 10:00 03/27/20 10:55 Paxil - PO 20 mg DAILY KANWAL Administration Vital Signs (last) Temp Pulse Resp BP Pulse Ox 98.2 F 84 18 127/66 95 03/27/20 14:49 03/27/20 14:49 03/27/20 14:49 03/27/20 14:49 03/27/20 14:49 Intake and Output 03/25/20 03/26/20 03/27/20 23:59 23:59 23:59 Intake Total 725 Output Total 750 Balance -25 Intake: IV 525 1/2 Normal Saline 1,000 525 ml @ 75 mls/hr IV ASDIR [facility] Rx#:[id number] Oral 200 Output: Urine 750 Void 750 Other: Voiding Method Urinal Urinal # Unmeasured Voids Void 2 Bowel Movement No Weight 205 lb Height 5 ft 9 in Body Mass Index (BMI) 30.2 Weight Measurement Method Built in Bedscale Laboratory 03/27/20 07:35 03/27/20 15:20 PT with INR 12.50 SEC (9.7-13.0) 03/26/20 14:06 PTT (Actin FS) 28.2 SECONDS (25.2-36.5) 03/26/20 14:06 IMAGING Right hip radiographs: Pending ASSESSMENT AND PLAN Mr. Ford is a 50 year old male presenting with severe right hip pain, originally scheduled for hip replacement surgery on 04/01/2020. Plan: 1. Pain control 2. DVT ppx 3. NWB RLE 4. Continue medical management 5. Workup tox screening for opiate / alcohol abuse 6. Will follow closely and will consider delay in surgery for further medical workup.
--- NOTE | 2020-03-27 17:59 | PN ---
Physical Exam: SUBJECTIVE: Patient seen and examined at bedside. C/o right lower extremity pain. OBJECTIVE: Vital Signs Period Temp Pulse Resp BP Sys/Isabel Pulse Ox Last 24 Hr 97.9 F-98.7 F 65-84 16-20 116-136/57-76 95-100 GENERAL: Mild distress. HEAD: Normal with no signs of trauma. EYES: EOMI Sclera Clear LUNGS: Clear b/l. Minimal wheezing throughout. HEART: RRR S1S2 No MRG ABDOMEN: Soft, NDNT EXTREMITIES: No CCE. NEUROLOGICAL: Cranial nerves II through XII grossly intact. Extensive lower extremity exam unable to obtain 2/2 patient non-compliance due to extreme pain. PSYCH: Normal mood, normal affect. Laboratory Results - last 24 hr 03/26/20 03/27/20 03/27/20 14:06 07:35 07:35 WBC 8.5 RBC 4.18 Hgb 13.7 Hct 39.0 MCV 93.4 MCH 32.9 MCHC 35.2 RDW 13.2 Plt Count 301 MPV 8.0 ESR Sodium 130 L Potassium 3.9 Chloride 93 L Carbon Dioxide 29 Anion Gap 8 BUN 6.8 L Creatinine 0.5 L Est GFR (CKD-EPI)AfAm 146.45 Est GFR (CKD-EPI)NonAf 126.36 Random Glucose 71 L Serum Osmolality Calcium 8.3 L Phosphorus Magnesium 2.5 H Total Bilirubin Direct Bilirubin AST ALT Alkaline Phosphatase Total Protein Albumin Urine Color Urine Appearance Urine pH Ur Specific [place] Urine Protein Urine Glucose (UA) Urine Ketones Urine Blood Urine Nitrite Urine Bilirubin Urine Urobilinogen Ur Leukocyte Esterase Urine WBC (Auto) Urine RBC (Auto) Urine Casts (Auto) U Epithel Cells (Auto) Urine Bacteria (Auto) Urine Osmolality Ur Random Creatinine Ur Random Sodium COVID-19 (NIKKI) Not detected 03/27/20 03/27/20 03/27/20 07:35 07:35 09:30 WBC RBC Hgb Hct MCV MCH MCHC RDW Plt Count MPV ESR 72 H Sodium Potassium Chloride Carbon Dioxide Anion Gap BUN Creatinine Est GFR (CKD-EPI)AfAm Est GFR (CKD-EPI)NonAf Random Glucose Serum Osmolality 265 L Calcium Phosphorus Magnesium Total Bilirubin 1.0 Direct Bilirubin 0.3 H AST 79 H ALT 52 Alkaline Phosphatase 88 Total Protein 6.8 Albumin 3.1 L Urine Color Urine Appearance Urine pH Ur Specific [place] Urine Protein Urine Glucose (UA) Urine Ketones Urine Blood Urine Nitrite Urine Bilirubin Urine Urobilinogen Ur Leukocyte Esterase Urine WBC (Auto) Urine RBC (Auto) Urine Casts (Auto) U Epithel Cells (Auto) Urine Bacteria (Auto) Urine Osmolality Ur Random Creatinine 78.0 Ur Random Sodium < 18 L COVID-19 (NIKKI) 03/27/20 03/27/20 03/27/20 09:30 09:30 13:28 WBC RBC Hgb Hct MCV MCH MCHC RDW Plt Count MPV ESR Sodium 127 L Potassium 3.9 Chloride 90 L Carbon Dioxide 27 Anion Gap 10 BUN 7.0 Creatinine 0.6 Est GFR (CKD-EPI)AfAm 135.87 Est GFR (CKD-EPI)NonAf 117.23 Random Glucose 103 Serum Osmolality Calcium 8.8 Phosphorus 4.0 Magnesium 2.6 H Total Bilirubin Direct Bilirubin AST ALT Alkaline Phosphatase Total Protein Albumin Urine Color Yellow Urine Appearance Clear Urine pH 6.5 Ur Specific [place] 1.007 L Urine Protein Negative Urine Glucose (UA) Negative Urine Ketones Trace H Urine Blood Trace Urine Nitrite Negative Urine Bilirubin Negative Urine Urobilinogen 0.2 Ur Leukocyte Esterase Negative Urine WBC (Auto) 3 Urine RBC (Auto) 11 Urine Casts (Auto) 0 U Epithel Cells (Auto) 1 Urine Bacteria (Auto) 20 Urine Osmolality 211 L Ur Random Creatinine Ur Random Sodium COVID-19 (NIKKI) 03/27/20 15:20 WBC RBC Hgb Hct MCV MCH MCHC RDW Plt Count MPV ESR Sodium 129 L Potassium 4.0 Chloride 91 L Carbon Dioxide 28 Anion Gap 10 BUN 7.7 Creatinine 0.7 Est GFR (CKD-EPI)AfAm 127.53 Est GFR (CKD-EPI)NonAf 110.04 Random Glucose 133 H Serum Osmolality Calcium 8.8 Phosphorus Magnesium Total Bilirubin Direct Bilirubin AST ALT Alkaline Phosphatase Total Protein Albumin Urine Color Urine Appearance Urine pH Ur Specific [place] Urine Protein Urine Glucose (UA) Urine Ketones Urine Blood Urine Nitrite Urine Bilirubin Urine Urobilinogen Ur Leukocyte Esterase Urine WBC (Auto) Urine RBC (Auto) Urine Casts (Auto) U Epithel Cells (Auto) Urine Bacteria (Auto) Urine Osmolality Ur Random Creatinine Ur Random Sodium COVID-19 (NIKKI) Active Medications Generic Name Dose Route Start Last Admin Trade Name Freq PRN Reason Stop Dose Admin Acetaminophen 325 mg 03/26/20 23:00 09/23/20 17:52 Tylenol - PO 325 mg Q6H PRN Administration PAIN LEVEL 6-10 Amlodipine Besylate 5 mg 03/27/20 10:00 03/27/20 10:56 Norvasc - PO 5 mg DAILY KANWAL Administration Lisinopril 10 mg 03/27/20 10:00 03/27/20 10:55 Prinivil PO 10 mg DAILY KANWAL Administration Oxycodone HCl 5 mg 03/26/20 23:00 03/27/20 17:52 Roxicodone - PO 5 mg Q6H PRN Administration PAIN LEVEL 6-10 Paroxetine HCl 20 mg 03/27/20 10:00 03/27/20 10:55 Paxil - PO 20 mg DAILY KANWAL Administration ASSESSMENT/PLAN: 50-year-old male past medical history of hypertension, osteoarthritis, sciatica with plan for hip surgery next week presented with intractable hip pain and unable to ambulate, found to have severe hyponatremia #Hyponatremia -Sodium was 120 on admission. Urine lytes not collected prior to infusion of Normal Saline Careful to not correct Sodium more than 8-10 mEQ in 24 hours to prevent Osmotic Demyelination D5W at 50 cc/h per Renal Check BMP every 4 hours -Renal on board Dr Morris. Recs appreciated #Right hip pain: Severe Pending surgery with Dr. Ozzy Russ. -Surgery may be deferred in light of hyponatremia Pain control Physical therapy #Hypertension C/w lisinopril and Norvasc #FEN No Fluids Monitor Electrolytes Sodium Controlled #DVT ppx: HepSQTID #Dispo Med Surg Visit type - Emergency Visit Emergency Visit: Yes ED Registration Date: 03/26/20 Care time: The patient presented to the Emergency Department on the above date and was hospitalized for further evaluation of their emergent condition. - New Patient This patient is new to me today: No - Critical Care Critical Care patient: No - Discharge Referral Referred to [facility] No ATTENDING PHYSICIAN STATEMENT I saw and evaluated the patient. I reviewed the resident's note and discussed the case with the resident. I agree with the resident's findings and plan as documented. SUBJECTIVE: OBJECTIVE: ASSESSMENT AND PLAN:
[2020-03-28] MEDS: oxyCODONE HCL 5 MG TABLET PO PRN ×5 (00:09→23:46)
[2020-03-28] MEDS: HEPARIN NA (PORCINE) 5,000 UNITS/ML 1ML VIAL SQ SCH ×3 (06:16→21:09)
[2020-03-28 08:19] LABS: HEMATOCRIT 39.1 % (35.4-49); HEMOGLOBIN 13.6 GM/dL (11.7-16.9); MCH 32.7 pg (25.7-33.7); MCHC 34.8 g/dl (32.0-35.9); MEAN CELL VOLUME 94.1 fl (80-96); MEAN PLT VOLUME 7.9 fl (7.5-11.1); PLATELET COUNT 311 K/MM3 (134-434); RBC 4.15 M/mm3 (4.00-5.60); RDW 13.2 % (11.9-15.9); WHITE BLOOD COUNT 7.8 K/mm3 (4.0-10.0)
[2020-03-28 09:04] LABS: ALBUMIN 2.9 g/dl (3.4-5.0); BILIRUBIN,TOTAL 0.4 mg/dL (0.2-1); CALCIUM 8.4 mg/dL (8.5-10.1); CREATININE 0.5 mg/dL (0.55-1.3); MAGNESIUM 2.2 mg/dL (1.8-2.4); PHOSPHOROUS 4.6 mg/dL (2.5-4.9); POTASSIUM 3.9 mmol/L (3.5-5.1); TOT PROT 6.4 g/dl (6.4-8.2)
[2020-03-28 09:12] LABS: COCAINE, UR NEGATIVE ng/ml (CUTOFF=300); METHADONE, UR NEGATIVE ng/ml (CUTOFF=300); OPIATES, URI NEGATIVE ng/ml (CUTOFF=300); PHENCYCLIDINE,URINE NEGATIVE ng/ml (CUTOFF=25); URINE AMPHETAMINES NEGATIVE ng/ml (CUTOFF=500); URINE BARBITURATES NEGATIVE ng/ml (CUTOFF=200); URINE BENZODIAZEPINES NEGATIVE ng/ml (CUTOFF=200)
[2020-03-28] MEDS: PARoxetine HCL 20 MG TABLET PO SCH (10:41)
[2020-03-28] MEDS: LISINOPRIL 10 MG TABLET PO SCH (10:41)
[2020-03-28] MEDS: amLODIPine BESYLATE 5 MG TABLET (FP) PO SCH (10:41)
--- NOTE | 2020-03-28 11:40 | CONSULT ---
Consult - text type - Consultation Consultation Note: ORTHOPEDIC SURGERY PROGRESS NOTE Department of Orthopedic Surgery SUBJECTIVE No acute events overnight. Sitting at bedside comfortably. No complaints currently. Denies chest pain, shortness of breath, or calf pain. No nausea or vomiting. Tolerating oral intake. Pain control difficult overnight, but improving. PHYSICAL EXAMINATION General: Alert, oriented, cooperative and no distress. Right Lower Extremity: Skin warm, dry, and intact; no lesions, rashes or ulcers noted. Muscle mass equal and symmetric to contralateral side. No atrophy noted. No masses or effusions noted. Tender to palpation at the greater trochanter; nontender throughout rest of extremity. No cords or calf tenderness. Unable to SLR; No significant calf/ankle edema. LROM of the hip, consistent with my office examination. Full passive and active ROM of the knee and ankle and foot, free from pain. Joints stable with no pathologic laxity. EHL/TA/GS motor intact; SILT distally; 2+ DP pulses; Cap refill brisk. Tone and reflexes normal. DVT Exam: No evidence of DVT seen on physical exam; No cords or calf tenderness; No significant calf/ankle edema. Intake & Output 03/26/20 03/27/20 03/28/20 23:59 23:59 23:59 Intake Total 1575 500 Output Total 1450 1100 Balance 125 -600 Intake: IV 525 1/2 Normal Saline 1,000 525 ml @ 75 mls/hr IV ASDIR KANWAL Rx#:[id number] Oral 1050 500 Output: Urine 1450 1100 Void 1450 1100 Other: Voiding Method Urinal Urinal Urinal # Unmeasured Voids Void 2 Bowel Movement No No Weight 205 lb Height 5 ft 9 in Body Mass Index (BMI) 30.2 Weight Measurement Method [facility] Active Medications Generic Name Dose Route Start Last Admin Trade Name Freq PRN Reason Stop Dose Admin Acetaminophen 325 mg 03/26/20 23:00 03/27/20 17:52 Tylenol - PO 325 mg Q6H PRN Administration PAIN LEVEL 6-10 Amlodipine Besylate 5 mg 03/27/20 10:00 03/28/20 10:41 Norvasc - PO 5 mg DAILY KANWAL Administration Heparin Sodium (Porcine) 5,000 unit 03/28/20 06:00 03/28/20 06:16 Heparin - SQ 5,000 unit TID KANWAL Administration Lisinopril 10 mg 03/27/20 10:00 03/28/20 10:41 Prinivil PO 10 mg DAILY KANWAL Administration Oxycodone HCl 5 mg 03/26/20 23:00 03/28/20 11:34 Roxicodone - PO 5 mg Q6H PRN Administration PAIN LEVEL 6-10 Paroxetine HCl 20 mg 03/27/20 10:00 03/28/20 10:41 Paxil - PO 20 mg DAILY KANWAL Administration Vital Signs (last) Temp Pulse Resp BP Pulse Ox 98.1 F 61 20 124/67 95 03/28/20 10:00 03/28/20 10:00 03/28/20 10:00 03/28/20 10:00 03/28/20 10:00 Laboratory (coagulation) PT with INR 12.50 SEC (9.7-13.0) 03/26/20 14:06 Laboratory 03/28/20 07:22 03/28/20 07:22 IMAGING Radiographs of the right hip demonstrate a femoral head fracture. ASSESSMENT AND PLAN Mr. Ford is a 50 year old male presenting with severe right hip pain, originally scheduled for hip replacement surgery on 04/01/2020, with right femoral head fracture. - Pain control: Transition to oral pain medications, minimize narcotic use - DVT prophylaxis - Ice to right hip - Elevate HOB, encourage oral intake - Appreciate medical management (Nutrition optimization, decubitus precautions heel/sacrum) - NWB RLE - Needs med clearance for surgery planned for Wednesday04/01/2020 (Right Total Hip Replacement)
[2020-03-28] MEDS: ACETAMINOPHEN 325 MG TABLET (FP) PO PRN ×3 (12:56→23:45)
--- NOTE | 2020-03-28 13:26 | PN ---
Teaching Attending Note Name of Resident: Isaiah Daigle ATTENDING PHYSICIAN STATEMENT I saw and evaluated the patient. I reviewed the resident's note and discussed the case with the resident. I agree with the resident's findings and plan as documented. SUBJECTIVE: Seen and examined at bedside. Sodium now at 133, at a safe rate of correction. D5W drip discontinued. Patient will be transferred to [facility] for repair of hip fracture today. OBJECTIVE Last Vital Signs Temp Pulse Resp BP Pulse Ox 98.1 F 61 20 124/67 95 03/28/20 10:00 03/28/20 10:00 03/28/20 10:00 03/28/20 10:03/28/20 10:00 PE: Per resident note Labs/Imaging: reviewed ASSESSMENT/PLAN 50-year-old male past medical history of hypertension, osteoarthritis, sciatica with plan for hip surgery next week presented with intractable hip pain and unable to ambulate, found to have severe hyponatremia #Hyponatremia: improving In the setting of taking both hydrochlorothiazide and Paxil. Hydrochlorothiazide has been discontinued, recommend replacing Paxil with alternate medication not at risk for hyponatremia as an outpatient Sodium now 133, at safe rate of correction, D5W drip discontinued Trend BMP every 24 hours #Right hip fracture Pending surgery with Dr. Ozzy Russ of orthopedics on Wednesday at [facility]. To be transferred to [facility] today for monitoring over the weekend Pain control Physical therapy Patient is currently not cleared for surgery due to hyponatremia #Hypertension Continue amlodipine and lisinopril Permanently discontinue hydrochlorothiazide in the setting of hyponatremia #Depression Continue Paxil for now while in a monitored setting This medication should be changed long-term given the risk for hyponatremia
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
--- NOTE | 2020-03-28 15:00 | PN ---
Progress Note, Physician History of Present Illness: Pt seen and examined at bedside. He is awake and alert. he denies shortness of breath. - Current Medication List Current Medications: Active Medications Acetaminophen (Tylenol -) 325 mg PO Q6H PRN PRN Reason: PAIN LEVEL 6-10 Last Admin: 03/28/20 12:56 Dose: 325 mg Documented by: Amlodipine Besylate (Norvasc -) 5 mg PO DAILY [facility] Last Admin: 03/28/20 10:41 Dose: 5 mg Documented by: Heparin Sodium (Porcine) (Heparin -) 5,000 unit SQ TID [facility] Last Admin: 03/28/20 06:16 Dose: 5,000 unit Documented by: Lisinopril (Prinivil) 10 mg PO DAILY [facility] Last Admin: 03/28/20 10:41 Dose: 10 mg Documented by: Nicotine (Nicoderm Patch -) 21 mg TD DAILY [facility] Oxycodone HCl (Roxicodone -) 5 mg PO Q6H PRN PRN Reason: PAIN LEVEL 6-10 Last Admin: 03/28/20 11:34 Dose: 5 mg Documented by: Paroxetine HCl (Paxil -) 20 mg PO DAILY [facility] Last Admin: 03/28/20 10:41 Dose: 20 mg Documented by: - Objective Vital Signs: Vital Signs Temperature 98.1 F 03/28/20 10:00 Pulse Rate 61 03/28/20 10:00 Respiratory Rate 03/28/20 10:00 Blood Pressure 124/67 03/28/20 10:00 O2 Sat by Pulse Oximetry (%) 95 03/28/20 10:00 Constitutional: Yes: Calm Eyes: Yes: Conjunctiva Clear Cardiovascular: Yes: S1, S2 Respiratory: Yes: CTA Bilaterally Gastrointestinal: Yes: Normal Bowel Sounds, Soft Genitourinary: Yes: WNL Musculoskeletal: Yes: WNL (hip pain) Edema: No Neurological: Yes: Oriented Psychiatric: Yes: Oriented Labs: CBC, BMP 03/28/20 07:22 03/28/20 07:22 INR, PTT INR 1.06 (0.83-1.09) 03/26/20 14:06 Assessment/Plan Current Medications Generic Name Dose Route Start Last Admin Trade Name Freq PRN Reason Stop Dose Admin Acetaminophen 325 mg 03/26/20 23:00 03/28/20 12:56 Tylenol - PO 325 mg Q6H PRN Administration PAIN LEVEL 6-10 Amlodipine Besylate 5 mg 03/27/20 10:00 03/28/20 10:41 Norvasc - PO 5 mg DAILY KANWAL Administration Heparin Sodium (Porcine) 5,000 unit 03/28/20 06:00 03/28/20 06:16 Heparin - SQ 5,000 unit TID KANWAL Administration Lisinopril 10 mg 03/27/20 10:00 03/28/20 10:41 Prinivil PO 10 mg DAILY KANWAL Administration Nicotine 21 mg 03/28/20 14:00 Nicoderm Patch - TD DAILY KANWAL Oxycodone HCl 5 mg 03/26/20 23:00 03/28/20 11:34 Roxicodone - PO 5 mg Q6H PRN Administration PAIN LEVEL 6-10 Paroxetine HCl 20 mg 03/27/20 10:00 03/28/20 10:41 Paxil - PO 20 mg DAILY KANWAL Administration Impression 1. hyponatremia 2. htn 3. depression 4. sciatica 5. arthritis Plan - sodium stabilizing - can stop fluids - effects of thiazide may last for up to 5 to 7 days - repeat labs in am
[2020-03-28] MEDS: NICOTINE 21 MG/24 HOURS TOPICAL PATCH TD SCH (15:24)
--- NOTE | 2020-03-28 17:40 | PN ---
Physical Exam: SUBJECTIVE: Patient seen and examined at bedside. No acute events overnight. Denies shortness of breath. OBJECTIVE: Vital Signs Period Temp Pulse Resp BP Sys/Isabel Pulse Ox Last 24 Hr 97.7 F-98.6 F 61-77 16-20 110-144/67-88 95-97 GENERAL: No acute distress HEAD: Normal with no signs of trauma. EYES: EOMI Sclera Clear LUNGS: Clear bilaterally. HEART: RRR S1S2 No MRG ABDOMEN: Soft, NDNT EXTREMITIES: No CCE. SILT bilaterally. DP 2+. NEUROLOGICAL: Cranial nerves II through XII grossly intact. PSYCH: Normal mood, normal affect. Laboratory Results - last 24 hr 03/27/20 03/28/20 03/28/20 15:20 05:45 07:22 WBC RBC Hgb Hct MCV MCH MCHC RDW Plt Count MPV Sodium 133 L Potassium 3.9 Chloride 97 L Carbon Dioxide 28 Anion Gap 7 L BUN 6.0 L Creatinine 0.5 L Est GFR (CKD-EPI)AfAm 146.45 Est GFR (CKD-EPI)NonAf 126.36 Random Glucose 79 Calcium 8.4 L Phosphorus 4.6 Magnesium 2.2 Total Bilirubin 0.4 AST 69 H ALT 54 Alkaline Phosphatase 80 Creatine Kinase 290 Creatine Kinase Index 1.1 CK-MB (CK-2) 3.3 Total Protein 6.4 Albumin 2.9 L Triglycerides 63 Cholesterol 136 Total LDL Cholesterol 43 HDL Cholesterol 79 H Opiates Screen Negative Methadone Screen Negative Barbiturate Screen Negative Phencyclidine Screen Negative Ur Amphetamines Screen Negative MDMA (Ecstasy) Screen Negative Benzodiazepines Screen Negative Cocaine Screen Negative U Marijuana (THC) Screen Negative Alcohol, Quantitative < 3 03/28/20 07:22 WBC 7.8 RBC 4.15 Hgb 13.6 Hct 39.1 MCV 94.1 MCH 32.7 MCHC 34.8 RDW 13.2 Plt Count 311 MPV 7.9 Sodium Potassium Chloride Carbon Dioxide Anion Gap BUN Creatinine Est GFR (CKD-EPI)AfAm Est GFR (CKD-EPI)NonAf Random Glucose Calcium Phosphorus Magnesium Total Bilirubin AST ALT Alkaline Phosphatase Creatine Kinase Creatine Kinase Index CK-MB (CK-2) Total Protein Albumin Triglycerides Cholesterol Total LDL Cholesterol HDL Cholesterol Opiates Screen Methadone Screen Barbiturate Screen Phencyclidine Screen Ur Amphetamines Screen MDMA (Ecstasy) Screen Benzodiazepines Screen Cocaine Screen U Marijuana (THC) Screen Alcohol, Quantitative Active Medications Generic Name Dose Route Start Last Admin Trade Name Melissa PRN Reason Stop Dose Admin Acetaminophen 325 mg 03/26/20 23:00 03/28/20 12:56 Tylenol - PO 325 mg Q6H PRN Administration PAIN LEVEL 6-10 Amlodipine Besylate 5 mg 03/27/20 10:00 03/28/20 10:41 Norvasc - PO 5 mg DAILY KANWAL Administration Heparin Sodium (Porcine) 5,000 unit 03/28/20 06:00 03/28/20 15:23 Heparin - SQ 5,000 unit TID KANWAL Administration Lisinopril 10 mg 03/27/20 10:00 03/28/20 10:41 Prinivil PO 10 mg DAILY KANWAL Administration Nicotine 21 mg 03/28/20 14:00 03/28/20 15:24 Nicoderm Patch - TD 21 mg DAILY KANWAL Administration Oxycodone HCl 5 mg 03/26/20 23:00 03/28/20 11:34 Roxicodone - PO 5 mg Q6H PRN Administration PAIN LEVEL 6-10 Paroxetine HCl 20 mg 03/27/20 10:00 03/28/20 10:41 Paxil - PO 20 mg DAILY KANWAL Administration ASSESSMENT/PLAN: 50-year-old male past medical history of hypertension, osteoarthritis, sciatica with plan for hip surgery next week presented with intractable hip pain and unable to ambulate, found to have severe hyponatremia #Hyponatremia-resolving -Sodium was 120 on admission. Na today 133. Renal on board D5W discontinued per renal Check BMP Q24H. Discontinuing HCTZ and Paxil as both known to cause hypo natremia. -Renal on board Dr Morris. Recs appreciated #Right hip pain: Severe -Patient transferred to [facility] for surgery with Dr Russ this upcoming Wednesday. Pain control Physical therapy -Cardiac Clearance #Hypertension C/w lisinopril and Norvasc #FEN No Fluids Monitor Electrolytes Sodium Controlled #DVT ppx: HepSQTID #Dispo Med Surg Visit type - Emergency Visit Emergency Visit: Yes ED Registration Date: 03/26/20 Care time: The patient presented to the Emergency Department on the above date and was hospitalized for further evaluation of their emergent condition. - New Patient This patient is new to me today: No - Critical Care Critical Care patient: No - Discharge Referral Referred to [facility] No ATTENDING PHYSICIAN STATEMENT I saw and evaluated the patient. I reviewed the resident's note and discussed the case with the resident. I agree with the resident's findings and plan as documented. SUBJECTIVE: OBJECTIVE: ASSESSMENT AND PLAN:
[2020-03-29] MEDS: ACETAMINOPHEN 325 MG TABLET (FP) PO PRN ×2 (05:44→19:21)
[2020-03-29] MEDS: HEPARIN NA (PORCINE) 5,000 UNITS/ML 1ML VIAL SQ SCH ×3 (05:45→21:39)
[2020-03-29] MEDS: oxyCODONE HCL 5 MG TABLET PO PRN ×2 (05:45→19:21)
--- NOTE | 2020-03-29 06:52 | ECHO ---
Name: ALIE HUA Exam:Adult Echocardiogram Study Date: 03/28/2020 03:04 PM Age: 50 yrs Reason For Study: pre op hip surgery Height: 69 in Weight: 205 lb BSA: 2.1 m2 MMode/2D Measurements & Calculations IVSd: 0.99 cm Ao root diam: 3.3 cm LVIDd: 5.5 cm LA dimension: 3.7 cm LVIDs: 3.5 cm LVPWd: 1.3 cm LVPWs: 1.9 cm EDV(Teich): 150.4 ml ESV(Harinderich): 50.3 ml LVOT diam: 2.5 cm Tech Comments pt refused to continue the test. Procedure Images were not obtained from all of the standard acoustic windows due to the limited scope of the st udy. Left Ventricle The left ventricular size, thickness and function are normal. Ejection Fraction = 60-65%. No regional wall motion abnormalities noted. Right Ventricle The right ventricle is not well visualized. Atria The left atrial size is normal. Right atrium not well visualized. Mitral Valve There is no mitral valve stenosis. Tricuspid Valve The tricuspid valve is not well visualized. Aortic Valve No hemodynamically significant valvular aortic stenosis. Pulmonic Valve The pulmonic valve is not well visualized. Great Vessels The aortic root is normal size. Pericardium/Pleura There is no pericardial effusion. Interpretation Summary The left ventricular size, thickness and function are normal The right ventricle is not well visualized. MD Jose Ramon Richards 03/28/2020 04:47 PM
[2020-03-29 08:34] LABS: CALCIUM 9.1 mg/dl (8.5-10); CREATININE 0.5 mg/dl (0.55-1.3); MAGNESIUM 2.1 mg/dL (1.8-2.4); PHOSPHOROUS 4.8 mg/dl (2.5-4.9); POTASSIUM 4.1 mmol/L (3.5-5.1)
[2020-03-29] MEDS ORDERED: MORPHINE SULFATE 2 MG/ML VIAL IVPUSH PRN (08:37)
[2020-03-29 08:47] LABS: HEMATOCRIT 38.8 % (35.4-49); HEMOGLOBIN 13.4 GM/dl (11.7-16.9); MCH 33.2 pg (25.7-33.7); MCHC 34.7 g/dl (32.0-35.9); MEAN CELL VOLUME 95.7 fl (80-96); MEAN PLT VOLUME 8.2 fl (7.5-11.1); PLATELET COUNT 353 K/MM3 (134-434); RBC 4.06 M/mm3 (4.00-5.60); WHITE BLOOD COUNT 8.1 K/mm3 (4.0-10.8)
[2020-03-29] MEDS: PARoxetine HCL 20 MG TABLET PO SCH (09:03)
[2020-03-29] MEDS: NICOTINE 21 MG/24 HOURS TOPICAL PATCH TD SCH (09:04)
[2020-03-29] MEDS: LISINOPRIL 10 MG TABLET PO SCH (09:04)
[2020-03-29] MEDS: amLODIPine BESYLATE 5 MG TABLET (FP) PO SCH (09:04)
[2020-03-29] MEDS ORDERED: SODIUM CHLORIDE 1,000 ML IV SCH ×2 (10:45→11:30)
--- NOTE | 2020-03-29 10:59 | ECHO ---
Version: 1 Name: ALIE HUA Exam: Adult Echocardiogram Study Date: 03/29/2020, 8:57 AM Age: 50 Years MMode/2D Measurements & Calculations IVSd: 0.88 cm LVIDs: 3.9 cm LVIDd: 5.7 cm LVPWd: 0.87 cm ACS: 2.05 cm Ao root diam: 3.3 cm LVOT diam: 2.48 cm LA dimension: 4.1 cm Doppler Measurements & Calculations MV E max lloyd: 82.8 cm/sec MV A max lloyd: 100.8 cm/sec MV E/A: 0.82 Ao max P.2 mmHg DORA(I,D): 4.8 cm Ao mean P.3 mmHg LV V1 mean: 80.9 cm/sec Ao V2 max: 114.0 cm/sec LV V1 mean P.0 mmHg TR max lloyd: 155.3 cm/sec TR max P.8 mmHg Procedure The study was technically difficult with many images being suboptimal in quality. Left Ventricle The left ventricle is borderline dilated. Left ventricular systolic function is grossly normal. Ejec tion Fraction = 55-60%. Septal motion is consistent with conduction abnormality. Regional wall motion abnormalities cannot be excluded due to limited visualization. Right Ventricle The right ventricle is grossly normal size. The right ventricular systolic function is grossly madeline l. Atria The left atrium is mildly dilated. Right atrial size is normal. Mitral Valve The mitral valve is normal in structure and function. There is no mitral valve stenosis. There is mi ld mitral regurgitation. Tricuspid Valve The tricuspid valve is not well visualized, but is grossly normal. There is mild tricuspid regurgita tion. Right ventricular systolic pressure is normal. Aortic Valve The aortic valve is trileaflet. No hemodynamically significant valvular aortic stenosis. No aortic regurgitation is present. Pulmonic Valve The pulmonic valve is not well seen, but is grossly normal. There is no pulmonic valvular stenosis. There is no pulmonic valvular regurgitation. Great Vessels The aortic root is normal size. Pericardium/Pleura There is no pericardial effusion. Tech Comments TDS due to body habitus. Summary Statements The study was technically difficult with many images being suboptimal in quality. Regional wall motion abnormalities cannot be excluded due to limited visualization. The left ventricle is borderline dilated. Left ventricular systolic function is grossly normal. The right ventricle is grossly normal size. The right ventricular systolic function is grossly normal. The left atrium is mildly dilated. There is mild mitral regurgitation. There is mild tricuspid regurgitation. Right ventricular systolic pressure is normal. No hemodynamically significant valvular aortic stenosis. There is no pericardial effusion. MD Sawant *Osmani 03/29/2020, 10:59 AM Ordering Physician: Carol Hess Referring Physician: CAROL HESS Performed By: Inna Abdi
[2020-03-29] MEDS ORDERED: SODIUM CHLORIDE 0.45% 1,000 ML IV SCH (11:00)
[2020-03-29] MEDS: GABAPENTIN 300 MG CAPSULE PO SCH ×2 (11:01→21:40)
[2020-03-29] MEDS: LIDOCAINE 5% TOPICAL PATCH TP SCH (11:01)
[2020-03-29] MEDS ORDERED: DOCUSATE SODIUM 100 MG CAPSULE (FP) PO PRN (13:01)
--- NOTE | 2020-03-29 14:20 | PN ---
Progress Note, Physician History of Present Illness: Pt seen and examined at bedside. He is awake and alert. He feels that he has some lower ext edema. - Current Medication List Current Medications: Active Medications Acetaminophen (Tylenol -) 325 mg PO Q6H PRN PRN Reason: PAIN LEVEL 6-10 Last Admin: 03/29/20 05:44 Dose: 325 mg Documented by: Amlodipine Besylate (Norvasc -) 5 mg PO DAILY [facility] Last Admin: 03/29/20 09:04 Dose: 5 mg Documented by: Docusate Sodium (Colace -) 100 mg PO Q8H PRN PRN Reason: CONSTIPATION Gabapentin (Neurontin -) 300 mg PO BID [facility] Last Admin: 03/29/20 11:01 Dose: 300 mg Documented by: Heparin Sodium (Porcine) (Heparin -) 5,000 unit SQ TID [facility] Last Admin: 03/29/20 05:45 Dose: 5,000 unit Documented by: Sodium Chloride (Normal Saline -) 1,000 mls @ 50 mls/hr IV ASDIR [facility] Stop: 03/30/20 11:21 Last Admin: 03/29/20 12:09 Dose: 50 mls/hr Documented by: Lidocaine (Lidoderm Patch -) 1 patch TP DAILY [facility] Last Admin: 03/29/20 11:01 Dose: 1 patch Documented by: Lisinopril (Prinivil) 10 mg PO DAILY [facility] Last Admin: 03/29/20 09:04 Dose: 10 mg Documented by: Miscellaneous (Lidoderm Patch Removal) 1 each MC DAILY@2200 [facility] Morphine Sulfate (Morphine Sulfate) 2 mg IVPUSH Q4H PRN PRN Reason: PAIN LEVEL 7 - 10 Nicotine (Nicoderm Patch -) 21 mg TD DAILY [facility] Last Admin: 03/29/20 09:04 Dose: 21 mg Documented by: Oxycodone HCl (Roxicodone -) 10 mg PO Q6H PRN PRN Reason: PAIN LEVEL 6-10 Paroxetine HCl (Paxil -) 20 mg PO DAILY [facility] Last Admin: 03/29/20 09:03 Dose: 20 mg Documented by: - Objective Vital Signs: Vital Signs Temperature 98.7 F 03/29/20 14:01 Pulse Rate 78 03/29/20 14:01 Respiratory Rate 19 03/29/20 14:01 Blood Pressure 124/73 03/29/20 14:01 O2 Sat by Pulse Oximetry (%) 96 03/29/20 14:01 Constitutional: Yes: Calm Eyes: Yes: Conjunctiva Clear HENT: Yes: Atraumatic Cardiovascular: Yes: S1, S2 Respiratory: Yes: CTA Bilaterally Gastrointestinal: Yes: Normal Bowel Sounds, Soft Genitourinary: Yes: WNL Edema: Yes Edema: LLE: 1+, RLE: 1+ Neurological: Yes: Oriented Psychiatric: Yes: Oriented Labs: CBC, BMP 03/29/20 07:14 03/29/20 07:14 INR, PTT INR 1.06 (0.83-1.09) 03/26/20 14:06 Assessment/Plan Current Medications Generic Name Dose Route Start Last Admin Trade Name Freq PRN Reason Stop Dose Admin Acetaminophen 325 mg 03/26/20 23:00 03/29/20 05:44 Tylenol - PO 325 mg Q6H PRN Administration PAIN LEVEL 6-10 Amlodipine Besylate 5 mg 03/27/20 10:00 03/29/20 09:04 Norvasc - PO 5 mg DAILY [facility] Administration Docusate Sodium 100 mg 03/29/20 13:01 Colace - PO Q8H PRN CONSTIPATION Gabapentin 300 mg 03/29/20 10:45 03/29/20 11:01 Neurontin - PO 300 mg BID [facility] Administration Heparin Sodium (Porcine) 5,000 unit 03/28/20 06:00 03/29/20 05:45 Heparin - SQ 5,000 unit TID [facility] Administration Sodium Chloride 1,000 mls @ 50 mls/hr 03/29/20 11:30 03/29/20 12:09 Normal Saline - IV 03/30/20 11:21 50 mls/hr ASDIR [facility] Administration Lidocaine 1 patch 03/29/20 10:45 03/29/20 11:01 Lidoderm Patch - TP 1 patch DAILY [facility] Administration Lisinopril 10 mg 03/27/20 10:00 03/29/20 09:04 Prinivil PO 10 mg DAILY [facility] Administration Miscellaneous 1 each 03/29/20 22:00 Lidoderm Patch Removal MC DAILY@2200 [facility] Morphine Sulfate 2 mg 03/29/20 13:01 Morphine Sulfate IVPUSH Q4H PRN PAIN LEVEL 7 - 10 Nicotine 21 mg 03/28/20 14:00 03/29/20 09:04 Nicoderm Patch - TD 21 mg DAILY [facility] Administration Oxycodone HCl 10 mg 03/29/20 13:02 Roxicodone - PO Q6H PRN PAIN LEVEL 6-10 Paroxetine HCl 20 mg 03/27/20 10:00 03/29/20 09:03 Paxil - PO 20 mg DAILY [facility] Administration Impression 1. hyponatremia 2. htn 3. depression 4. sciatica 5. arthritis Plan - restart saline - will give a small dose of lasix for edema - would not restart thiazide - effects of thiazide may last for up to 5 to 7 days - repeat labs in am
[2020-03-29] MEDS ORDERED: FUROSEMIDE 20 MG TABLET (FP) PO ONE (14:30)
--- NOTE | 2020-03-29 17:17 | PN ---
Progress Note, Physician Chief Complaint: right hip fracture History of Present Illness: 50-year-old male past medical history of hypertension, osteoarthritis, sciatica with plan for hip surgery next week presented with intractable hip pain and unable to ambulate, found to have fracture of right femoral head. He is scheduled for surgical intervention on Sunday 04/01 - Current Medication List Current Medications: Active Medications Acetaminophen (Tylenol -) 325 mg PO Q6H PRN PRN Reason: PAIN LEVEL 6-10 Last Admin: 03/29/20 05:44 Dose: 325 mg Documented by: Amlodipine Besylate (Norvasc -) 5 mg PO DAILY [facility] Last Admin: 03/29/20 09:04 Dose: 5 mg Documented by: Docusate Sodium (Colace -) 100 mg PO Q8H PRN PRN Reason: CONSTIPATION Gabapentin (Neurontin -) 300 mg PO BID [facility] Last Admin: 03/29/20 11:01 Dose: 300 mg Documented by: Heparin Sodium (Porcine) (Heparin -) 5,000 unit SQ TID [facility] Last Admin: 03/29/20 14:19 Dose: 5,000 unit Documented by: Sodium Chloride (Normal Saline -) 1,000 mls @ 50 mls/hr IV ASDIR [facility] Stop: 03/30/20 11:21 Last Admin: 03/29/20 12:09 Dose: 50 mls/hr Documented by: Lidocaine (Lidoderm Patch -) 1 patch TP DAILY [facility] Last Admin: 03/29/20 11:01 Dose: 1 patch Documented by: Lisinopril (Prinivil) 10 mg PO DAILY [facility] Last Admin: 03/29/20 09:04 Dose: 10 mg Documented by: Miscellaneous (Lidoderm Patch Removal) 1 each MC DAILY@2200 [facility] Morphine Sulfate (Morphine Sulfate) 2 mg IVPUSH Q4H PRN PRN Reason: PAIN LEVEL 7 - 10 Nicotine (Nicoderm Patch -) 21 mg TD DAILY [facility] Last Admin: 03/29/20 09:04 Dose: 21 mg Documented by: Oxycodone HCl (Roxicodone -) 10 mg PO Q6H PRN PRN Reason: PAIN LEVEL 6-10 Paroxetine HCl (Paxil -) 20 mg PO DAILY [facility] Last Admin: 03/29/20 09:03 Dose: 20 mg Documented by: - Objective Vital Signs: Vital Signs Temperature 98.7 F 03/29/20 14:01 Pulse Rate 78 03/29/20 14:01 Respiratory Rate 19 03/29/20 14:01 Blood Pressure 124/73 03/29/20 14:01 O2 Sat by Pulse Oximetry (%) 96 03/29/20 14:01 Constitutional: Yes: Mild Distress, Obese Eyes: Yes: Conjunctiva Clear HENT: Yes: Atraumatic, Normocephalic Neck: Yes: Supple, Trachea Midline Cardiovascular: Yes: Regular Rate and Rhythm Respiratory: Yes: Regular, CTA Bilaterally Gastrointestinal: Yes: Soft, Abdomen, Obese Musculoskeletal: Yes: Joint Stiffness (right hip) Edema: Yes Edema: LLE: 1+, RLE: 1+ Peripheral Pulses: Left Radial: 2+, Right Radial: 2+ Integumentary: Yes: WNL Neurological: Yes: Alert, Oriented ...Motor Strength: RLE (decreased) Psychiatric: Yes: Alert, Oriented Labs: CBC, BMP 03/29/20 07:14 03/29/20 07:14 INR, PTT INR 1.06 (0.83-1.09) 03/26/20 14:06 Problem List - Problems (1) Hip fracture, right Assessment/Plan: pt awaiting surgery on wednesday bed rest pain management Code(s): S72.001A - FRACTURE OF UNSP PART OF NECK OF RIGHT FEMUR, INIT (2) Tobacco dependence Assessment/Plan: continue nicoderm patch 21mg daily Code(s): F17.200 - NICOTINE DEPENDENCE, UNSPECIFIED, UNCOMPLICATED (3) Chronic pain Assessment/Plan: APAP PRN mild pain Oxycodone PRN moderate pain Morphine PRN severe pain Start neurontin 300mg BID start lidoderm patch q24hrs Code(s): G89.29 - OTHER CHRONIC PAIN (4) Depression Assessment/Plan: continue paxil Code(s): F32.9 - MAJOR DEPRESSIVE DISORDER, SINGLE EPISODE, UNSPECIFIED (5) HTN (hypertension) Assessment/Plan: continue lisinopril and norvasc for BP control Cardiac diet Code(s): I10 - ESSENTIAL (PRIMARY) HYPERTENSION (6) Prophylactic measure Assessment/Plan: bowel regimen with colace and senna bedrest fall precautuions SC heparin TID Code(s): Z29.9 - ENCOUNTER FOR PROPHYLACTIC MEASURES, UNSPECIFIED (7) Hyponatremia Assessment/Plan: renal following, recs appreciated. gentle NS infusion Lasix x 1 dose as per renal Code(s): E87.1 - HYPO-OSMOLALITY AND HYPONATREMIA Impression/Plan Impression/Plan: Code status: Full code Dispo: pt requires in patient management Visit type - Emergency Visit Emergency Visit: Yes ED Registration Date: 03/26/20 Care time: The patient presented to the Emergency Department on the above date and was hospitalized for further evaluation of their emergent condition. - New Patient This patient is new to me today: Yes Date on this admission: 03/29/20 - Critical Care Critical Care patient: No - Discharge Referral Referred to [facility] No
[2020-03-29] MEDS ORDERED: SENNOSIDES 8.6MG TABLET (FP) PO PRN (17:27)
[2020-03-29] MEDS: LIDOCAINE PATCH REMOVAL MC SCH (21:39)
[2020-03-29] MEDS: MORPHINE SULFATE 2 MG/ML VIAL IVPUSH PRN (21:47)
[2020-03-30] MEDS: HEPARIN NA (PORCINE) 5,000 UNITS/ML 1ML VIAL SQ SCH ×3 (05:41→21:06)
[2020-03-30 08:21] LABS: ALBUMIN 3.1 g/dl (3.4-5.0); BILIRUBIN,TOTAL 0.8 mg/dl (0.2-1); CALCIUM 8.9 mg/dl (8.5-10); CREATININE 0.5 mg/dl (0.55-1.3); POTASSIUM 3.9 mmol/L (3.5-5.1); TOT PROT 6.3 g/dl (6.4-8.2)
--- NOTE | 2020-03-30 09:08 | PN ---
Physical Exam: SUBJECTIVE: Patient seen and examined at bedside, c/o Rt hip pain, all other systems reviewed reported negative. OBJECTIVE: Vital Signs Period Temp Pulse Resp BP Sys/Isabel Pulse Ox Last 24 Hr 97.5 F-98.7 F 66-112 16-20 111-133/67-80 96-100 GENERAL: The patient is awake, alert, and fully oriented, in no acute distress. HEAD: Normal with no signs of trauma. EYES: PERRL, extraocular movements intact, sclera anicteric, conjunctiva clear. No ptosis. ENT: Ears normal, nares patent, oropharynx clear without exudates, moist mucous membranes. NECK: Trachea midline, full range of motion, supple. LUNGS: Breath sounds equal, clear to auscultation bilaterally, no wheezes, no crackles, no accessory muscle use. HEART: Regular rate and rhythm, S1, S2 without murmur, rub or gallop. ABDOMEN: Soft, nontender, nondistended, normoactive bowel sounds, no guarding, no rebound, no hepatosplenomegaly, no masses. EXTREMITIES: 2+ pulses, warm, well-perfused, 1+ edema. NEUROLOGICAL: Cranial nerves II through XII grossly intact. Normal speech, gait not observed. PSYCH: Normal mood, normal affect. SKIN: Warm, dry, normal turgor, no rashes or lesions noted Laboratory Results - last 24 hr 03/29/20 03/29/20 03/30/20 07:14 07:14 07:20 WBC 8.1 RBC 4.06 Hgb 13.4 Hct 38.8 MCV 95.7 MCH 33.2 MCHC 34.7 RDW 12.0 Plt Count 353 MPV 8.2 Sodium 132 L Potassium 3.9 Chloride 97 L Carbon Dioxide 25 Anion Gap 10 BUN 7.0 Creatinine 0.5 L Est GFR (CKD-EPI)AfAm 146.45 Est GFR (CKD-EPI)NonAf 126.36 Random Glucose 93 Calcium 8.9 Total Bilirubin 0.8 AST 49 H ALT 45 Alkaline Phosphatase 65 Total Protein 6.3 L Albumin 3.1 L TSH 1.90 Active Medications Generic Name Dose Route Start Last Admin Trade Name Freq PRN Reason Stop Dose Admin Acetaminophen 325 mg 03/26/20 23:00 03/29/20 19:21 Tylenol - PO 325 mg Q6H PRN Administration PAIN LEVEL 6-10 Amlodipine Besylate 5 mg 03/27/20 10:00 03/29/20 09:04 Norvasc - PO 5 mg DAILY [facility] Administration Docusate Sodium 100 mg 03/29/20 13:01 Colace - PO Q8H PRN CONSTIPATION Gabapentin 300 mg 03/29/20 10:45 03/29/20 21:40 Neurontin - PO 300 mg BID [facility] Administration Heparin Sodium (Porcine) 5,000 unit 03/28/20 06:00 03/30/20 05:41 Heparin - SQ 5,000 unit TID [facility] Administration Sodium Chloride 1,000 mls @ 50 mls/hr 03/29/20 11:30 03/29/20 12:09 Normal Saline - IV 03/30/20 11:21 50 mls/hr ASDIR [facility] Administration Lidocaine 1 patch 03/29/20 10:45 03/29/20 11:01 Lidoderm Patch - TP 1 patch DAILY [facility] Administration Lisinopril 10 mg 03/27/20 10:00 03/29/20 09:04 Prinivil PO 10 mg DAILY [facility] Administration Miscellaneous 1 each 03/29/20 22:00 03/29/20 21:39 Lidoderm Patch Removal MC 1 each DAILY@2200 [facility] Administration Morphine Sulfate 2 mg 03/29/20 13:01 03/29/20 21:47 Morphine Sulfate IVPUSH 2 mg Q4H PRN Administration PAIN LEVEL 7 - 10 Nicotine 21 mg 03/28/20 14:00 03/29/20 09:04 Nicoderm Patch - TD 21 mg DAILY [facility] Administration Oxycodone HCl 10 mg 03/29/20 13:02 03/29/20 19:21 Roxicodone - PO 10 mg Q6H PRN Administration PAIN LEVEL 6-10 Paroxetine HCl 20 mg 03/27/20 10:00 03/29/20 09:03 Paxil - PO 20 mg DAILY [facility] Administration Senna 2 tab 03/29/20 17:27 Senna - PO HS PRN CONSTIPATION * Imaging Hip X'ray: Fracture of Rt femoral head . CxR: No acute lung pathology ASSESSMENT/PLAN: 50-year-old male past medical history of hypertension, osteoarthritis, smoker, ETOH use , bilaterl loer ext edema,obesity, depression,sciatica with plan for hip surgery next week presented with intractable hip pain and unable to ambulate, found to have fracture of right femoral head. He is scheduled for surgical intervention on Sunday 04/01 *Hip fracture, right - ortho following - sx scheduled for Wednesday -bed rest -pain management - bowel regimen - encourage to use IS - cardiology following, rec Echo - Echo - EF 55-60% *Tobacco dependence -continue Nicoderm patch 21mg daily - smoking cessation counselling done *Chronic pain, hx of OA - pain control - bowel regimen *Depression -continue paxil *HTN -continue lisinopril and Norvasc for BP control * Hyponatremia - Na-120>128>132 - Urine studies reviewed - Renal following, likely due to Thiazide - on IVF - TSH- wnl * Hx of lower ext edema - ruled out DVT - s/p one dose of Lasix - encourage to keep leg s elevated whenever possible * DVT Prophylactic measure: Heparin SQ * F/E/N: replace electrolytes as needed Visit type - Emergency Visit Emergency Visit: Yes ED Registration Date: 03/26/20 Care time: The patient presented to the Emergency Department on the above date and was hospitalized for further evaluation of their emergent condition. - New Patient This patient is new to me today: Yes Date on this admission: 03/30/20 - Critical Care Critical Care patient: No
[2020-03-30] MEDS: LIDOCAINE 5% TOPICAL PATCH TP SCH (09:44)
[2020-03-30] MEDS: NICOTINE 21 MG/24 HOURS TOPICAL PATCH TD SCH (09:45)
[2020-03-30] MEDS: PARoxetine HCL 20 MG TABLET PO SCH (09:45)
[2020-03-30] MEDS: amLODIPine BESYLATE 5 MG TABLET (FP) PO SCH (09:45)
[2020-03-30] MEDS: LISINOPRIL 10 MG TABLET PO SCH (09:45)
[2020-03-30] MEDS: GABAPENTIN 300 MG CAPSULE PO SCH ×2 (09:45→21:06)
--- NOTE | 2020-03-30 10:28 | PN ---
Progress Note (short form) - Note Progress Note: ORTHOPEDIC SURGERY PROGRESS NOTE Department of Orthopedic Surgery SUBJECTIVE No acute events overnight. No complaints currently. Denies chest pain, shortness of breath, or calf pain. No nausea or vomiting. Tolerating oral intake. Pain control difficult overnight, but improving. PHYSICAL EXAMINATION General: Alert, oriented, cooperative and no distress. Right Lower Extremity: Skin warm, dry, and intact; no lesions, rashes or ulcers noted. Muscle mass equal and symmetric to contralateral side. No atrophy noted. No masses or effusions noted. Tender to palpation at the greater trochanter; nontender throughout rest of extremity. No cords or calf tenderness. Unable to SLR; No significant calf/ankle edema. LROM of the hip, consistent with my office examination. Full passive and active ROM of the knee and ankle and foot, free from pain. Joints stable with no pathologic laxity. EHL/TA/GS motor intact; SILT distally; 2+ DP pulses; Cap refill brisk. Tone and reflexes normal. DVT Exam: No evidence of DVT seen on physical exam; No cords or calf tenderness; No significant calf/ankle edema. Intake & Output 03/28/20 03/29/20 03/30/20 23:59 23:59 23:59 Intake Total 1100 1870 560 Output Total 2450 1480 2020 Balance -1350 390 -1460 Intake: IV 500 Normal Saline - 1,000 ml 500 @ 50 mls/hr IV ASDIR [facility] Rx#:[id number] Oral 1100 1870 60 Output: Urine 2450 1480 2020 Void 2450 1480 2020 Other: Voiding Method Urinal Bedside Commode Bedside Commode # Unmeasured Voids Void 2 Bowel Movement No No No # Bowel Movements 1 Weight 205 lb Height 5 ft 9 in Body Mass Index (BMI) 30.2 Active Medications Generic Name Dose Route Start Last Admin Trade Name Freq PRN Reason Stop Dose Admin Acetaminophen 325 mg 03/26/20 23:00 03/29/20 19:21 Tylenol - PO 325 mg Q6H PRN Administration PAIN LEVEL 6-10 Amlodipine Besylate 5 mg 03/27/20 10:00 03/30/20 09:45 Norvasc - PO 5 mg DAILY [facility] Administration Docusate Sodium 100 mg 03/29/20 13:01 Colace - PO Q8H PRN CONSTIPATION Gabapentin 300 mg 03/29/20 10:45 03/30/20 09:45 Neurontin - PO 300 mg BID [facility] Administration Heparin Sodium (Porcine) 5,000 unit 03/28/20 06:00 03/30/20 05:41 Heparin - SQ 5,000 unit TID [facility] Administration Sodium Chloride 1,000 mls @ 50 mls/hr 03/29/20 11:30 03/29/20 12:09 Normal Saline - IV 03/30/20 11:21 50 mls/hr ASDIR [facility] Administration Lidocaine 1 patch 03/29/20 10:45 03/30/20 09:44 Lidoderm Patch - TP 1 patch DAILY [facility] Administration Lisinopril 10 mg 03/27/20 10:00 03/30/20 09:45 Prinivil PO 10 mg DAILY [facility] Administration Miscellaneous 1 each 03/29/20 22:00 03/29/20 21:39 Lidoderm Patch Removal MC 1 each DAILY@2200 [facility] Administration Morphine Sulfate 2 mg 03/29/20 13:01 03/29/20 21:47 Morphine Sulfate IVPUSH 2 mg Q4H PRN Administration PAIN LEVEL 7 - 10 Nicotine 21 mg 03/28/20 14:00 03/30/20 09:45 Nicoderm Patch - TD 21 mg DAILY [facility] Administration Oxycodone HCl 10 mg 03/29/20 13:02 03/29/20 19:21 Roxicodone - PO 10 mg Q6H PRN Administration PAIN LEVEL 6-10 Paroxetine HCl 20 mg 03/27/20 10:00 03/30/20 09:45 Paxil - PO 20 mg DAILY [facility] Administration Senna 2 tab 03/29/20 17:27 Senna - PO HS PRN CONSTIPATION Vital Signs (last) Temp Pulse Resp BP Pulse Ox 98.6 F 75 18 123/71 96 03/30/20 09:38 03/30/20 09:38 03/30/20 09:38 03/30/20 09:38 03/30/20 09:38 Laboratory (coagulation) PT with INR 12.50 SEC (9.7-13.0) 03/26/20 14:06 Laboratory 03/29/20 07:14 03/30/20 07:20 IMAGING Radiographs of the right hip demonstrate a femoral head fracture. ASSESSMENT AND PLAN Mr. Ford is a 50 year old male presenting with severe right hip pain, orig inally scheduled for hip replacement surgery on 04/01/2020, with right femoral head fracture. - Pain control: Transition to oral pain medications, minimize narcotic use - DVT prophylaxis - Ice to right hip - Elevate HOB, encourage oral intake - Appreciate medical management (Nutrition optimization, decubitus precautions heel/sacrum) - NWB RLE - Needs med clearance for surgery planned for Wednesday04/01/2020 (Right Total Hip Replacement)
[2020-03-30] MEDS: oxyCODONE HCL 5 MG TABLET PO PRN ×3 (10:32→23:28)
[2020-03-30] MEDS: ACETAMINOPHEN 325 MG TABLET (FP) PO PRN ×3 (10:32→23:28)
[2020-03-30] MEDS: MORPHINE SULFATE 2 MG/ML VIAL IVPUSH PRN (21:59)
[2020-03-30] MEDS: LIDOCAINE PATCH REMOVAL MC SCH (22:00)
[2020-03-31] MEDS: MORPHINE SULFATE 2 MG/ML VIAL IVPUSH PRN ×4 (01:54→21:09)
[2020-03-31] MEDS: oxyCODONE HCL 5 MG TABLET PO PRN ×3 (05:59→19:24)
[2020-03-31] MEDS: ACETAMINOPHEN 325 MG TABLET (FP) PO PRN ×3 (06:00→19:24)
[2020-03-31] MEDS: HEPARIN NA (PORCINE) 5,000 UNITS/ML 1ML VIAL SQ SCH ×3 (06:02→21:09)
--- NOTE | 2020-03-31 08:43 | PN ---
Physical Exam: SUBJECTIVE: Patient seen and examined at bedside, still c/o Rt hip pain, no other complains. OBJECTIVE: Vital Signs Period Temp Pulse Resp BP Sys/Isabel Pulse Ox Last 24 Hr 98.1 F-98.6 F 67-75 18-18 105-123/68-96 96-97 GENERAL: The patient is awake, alert, and fully oriented, in no acute distress. HEAD: Normal with no signs of trauma. EYES: PERRL, extraocular movements intact, sclera anicteric, conjunctiva clear. No ptosis. ENT: Ears normal, nares patent, oropharynx clear without exudates, moist mucous membranes. NECK: Trachea midline, full range of motion, supple. LUNGS: Breath sounds equal, clear to auscultation bilaterally, no wheezes, no crackles, no accessory muscle use. HEART: Regular rate and rhythm, S1, S2 without murmur, rub or gallop. ABDOMEN: Soft, nontender, nondistended, normoactive bowel sounds, no guarding, no rebound, no hepatosplenomegaly, no masses. EXTREMITIES: 2+ pulses, warm, well-perfused, 1+ edema, bilateral lower ext NEUROLOGICAL: Cranial nerves II through XII grossly intact. Normal speech, gait not observed. PSYCH: Normal mood, normal affect. SKIN: Warm, dry, normal turgor, no rashes or lesions noted Active Medications Generic Name Dose Route Start Last Admin Trade Name Freq PRN Reason Stop Dose Admin Acetaminophen 325 mg 03/26/20 23:00 03/31/20 06:00 Tylenol - PO 325 mg Q6H PRN Administration PAIN LEVEL 6-10 Amlodipine Besylate 5 mg 03/27/20 10:00 03/30/20 09:45 Norvasc - PO 5 mg DAILY [facility] Administration Docusate Sodium 100 mg 03/29/20 13:01 Colace - PO Q8H PRN CONSTIPATION Gabapentin 300 mg 03/29/20 10:45 03/30/20 21:06 Neurontin - PO 300 mg BID [facility] Administration Heparin Sodium (Porcine) 5,000 unit 03/28/20 06:00 03/31/20 06:02 Heparin - SQ 5,000 unit TID [facility] Administration Lidocaine 1 patch 03/29/20 10:45 03/30/20 09:44 Lidoderm Patch - TP 1 patch DAILY [facility] Administration Lisinopril 10 mg 03/27/20 10:00 03/30/20 09:45 Prinivil PO 10 mg DAILY [facility] Administration Miscellaneous 1 each 03/29/20 22:00 03/30/20 22:00 Lidoderm Patch Removal MC 1 each DAILY@2200 [facility] Administration Morphine Sulfate 2 mg 03/29/20 13:01 03/31/20 01:54 Morphine Sulfate IVPUSH 2 mg Q4H PRN Administration PAIN LEVEL 7 - 10 Nicotine 21 mg 03/28/20 14:00 03/30/20 09:45 Nicoderm Patch - TD 21 mg DAILY [facility] Administration Oxycodone HCl 10 mg 03/29/20 13:02 03/31/20 05:59 Roxicodone - PO 10 mg Q6H PRN Administration PAIN LEVEL 6-10 Paroxetine HCl 20 mg 03/27/20 10:00 03/30/20 09:45 Paxil - PO 20 mg DAILY [facility] Administration Senna 2 tab 03/29/20 17:27 Senna - PO HS PRN CONSTIPATION * Imaging Hip X'ray: Fracture of Rt femoral head . CxR: No acute lung pathology ASSESSMENT/PLAN: 50-year-old male past medical history of hypertension, osteoarthritis, smoker, ETOH use , bilaterl loer ext edema,obesity, depression,sciatica with plan for hip surgery next week presented with intractable hip pain and unable to ambulate, found to have fracture of right femoral head. He is scheduled for surgical intervention on Sunday 04/01 *Hip fracture, right - ortho following - sx scheduled for Wednesday -bed rest- NPO after MN -pain management - bowel regimen - encourage to use IS - cardiology following, rec Echo - Echo - EF 55-60% *Tobacco dependence -continue Nicoderm patch 21mg daily - smoking cessation counselling reinforced *Chronic pain, hx of OA - pain control - bowel regimen *Depression -continue paxil *HTN -continue lisinopril and Norvasc for BP control * Hyponatremia - Na-120>128>132 - Urine studies reviewed - Renal following, likely due to Thiazide - on IVF - TSH- wnl * Hx of lower ext edema - ruled out DVT - s/p one dose of Lasix - encourage to keep leg s elevated whenever possible * DVT Prophylactic measure: Heparin SQ , will hold Heparin after 10PM dose today. * F/E/N: replace electrolytes as needed NPO afer MN for Rt hip replacement in AM Visit type - Emergency Visit Emergency Visit: Yes ED Registration Date: 03/26/20 Care time: The patient presented to the Emergency Department on the above date and was hospitalized for further evaluation of their emergent condition. - New Patient This patient is new to me today: No - Critical Care Critical Care patient: No
[2020-03-31] MEDS: NICOTINE 21 MG/24 HOURS TOPICAL PATCH TD SCH (09:48)
[2020-03-31] MEDS: GABAPENTIN 300 MG CAPSULE PO SCH ×2 (09:48→21:09)
[2020-03-31] MEDS: LIDOCAINE 5% TOPICAL PATCH TP SCH (09:48)
[2020-03-31] MEDS: amLODIPine BESYLATE 5 MG TABLET (FP) PO SCH (09:49)
[2020-03-31] MEDS: PARoxetine HCL 20 MG TABLET PO SCH (09:49)
[2020-03-31] MEDS: LISINOPRIL 10 MG TABLET PO SCH (09:49)
--- NOTE | 2020-03-31 10:03 | PN ---
Progress Note (short form) - Note Progress Note: ORTHOPEDIC SURGERY PROGRESS NOTE Department of Orthopedic Surgery SUBJECTIVE No acute events overnight. No complaints currently. Denies chest pain, shortness of breath, or calf pain. No nausea or vomiting. Tolerating oral intake. Pain controlled. PHYSICAL EXAMINATION General: Alert, oriented, cooperative and no distress. Right Lower Extremity: Skin warm, dry, and intact; no lesions, rashes or ulcers noted. Muscle mass equal and symmetric to contralateral side. No atrophy noted. No masses or effusions noted. Tender to palpation at the greater trochanter; nontender throughout rest of extremity. No cords or calf tenderness. Unable to SLR; No significant calf/ankle edema. LROM of the hip, consistent with my office examination. Full passive and active ROM of the knee and ankle and foot, free from pain. Joints stable with no pathologic laxity. EHL/TA/GS motor intact; SILT distally; 2+ DP pulses; Cap refill brisk. Tone and reflexes normal. DVT Exam: No evidence of DVT seen on physical exam; No cords or calf tenderness; No significant calf/ankle edema. Intake & Output 03/29/20 03/30/20 03/31/20 23:59 23:59 23:59 Intake Total 1870 560 Output Total 1480 2720 Balance 390 -2160 Intake: IV 500 Normal Saline - 1,000 ml 500 @ 50 mls/hr IV ASDIR KANWAL Rx#:[id number] Oral 1870 60 Output: Urine 1480 2720 Void 1480 2720 Other: Voiding Method Bedside Commode Bedside Commode Bedside Commode # Unmeasured Voids Void 2 1 1 Bowel Movement No No # Bowel Movements 1 Active Medications Generic Name Dose Route Start Last Admin Trade Name Freq PRN Reason Stop Dose Admin Acetaminophen 325 mg 03/26/20 23:00 03/31/20 06:00 Tylenol - PO 325 mg Q6H PRN Administration PAIN LEVEL 6-10 Amlodipine Besylate 5 mg 03/27/20 10:00 03/31/20 09:49 Norvasc - PO 5 mg DAILY KANWAL Administration Docusate Sodium 100 mg 03/29/20 13:01 Colace - PO Q8H PRN CONSTIPATION Gabapentin 300 mg 03/29/20 10:45 03/31/20 09:48 Neurontin - PO 300 mg BID KANWAL Administration Heparin Sodium (Porcine) 5,000 unit 03/28/20 06:00 03/31/20 06:02 Heparin - SQ 5,000 unit TID KANWAL Administration Lidocaine 1 patch 03/29/20 10:45 03/31/20 09:48 Lidoderm Patch - TP 1 patch DAILY [facility] Administration Lisinopril 10 mg 03/27/20 10:00 03/31/20 09:49 Prinivil PO 10 mg DAILY KAN[facility]AL Administration Miscellaneous 1 each 03/29/20 22:00 03/30/20 22:00 Lidoderm Patch Removal MC 1 each DAILY@2200 K[facility] Administration Morphine Sulfate 2 mg 03/29/20 13:01 03/31/20 01:54 Morphine Sulfate IVPUSH 2 mg Q4H PRN Administration PAIN LEVEL 7 - 10 Nicotine 21 mg 03/28/20 14:00 03/31/20 09:48 Nicoderm Patch - TD 21 mg DAILY [facility] Administration Oxycodone HCl 10 mg 03/29/20 13:02 03/31/20 05:59 Roxicodone - PO 10 mg Q6H PRN Administration PAIN LEVEL 6-10 Paroxetine HCl 20 mg 03/27/20 10:00 03/31/20 09:49 Paxil - PO 20 mg DAILY [facility] Administration Senna 2 tab 03/29/20 17:27 Senna - PO HS PRN CONSTIPATION Vital Signs (last) Temp Pulse Resp BP Pulse Ox 98.2 F 80 18 114/69 95 03/31/20 09:00 03/31/20 09:00 03/31/20 09:00 03/31/20 09:00 03/31/20 09:00 Laboratory (coagulation) PT with INR 12.50 SEC (9.7-13.0) 03/26/20 14:06 Laboratory 03/29/20 07:14 IMAGING Radiographs of the right hip demonstrate a femoral head fracture. ASSESSMENT AND PLAN Mr. Ford is a 50 year old male presenting with severe right hip pain, originally scheduled for hip replacement surgery on 04/01/2020, with right femoral head fracture. - Pain control: Transition to oral pain medications, minimize narcotic use - NPO past midnight except for medications - DVT prophylaxis - Hold past Midnight - Ice to right hip - Elevate HOB, encourage oral intake - Appreciate medical management (Nutrition optimization, decubitus precautions heel/sacrum) - NWB RLE - Needs med / cards clearance for surgery planned for Wednesday04/01/2020 AM (Right Total Hip Replacement)
[2020-03-31 10:35] LABS: CREATININE 0.6 mg/dl (0.55-1.3); POTASSIUM 4.3 mmol/L (3.5-5.1)
[2020-03-31] MEDS: LIDOCAINE PATCH REMOVAL MC SCH (21:09)
[2020-04-01] MEDS: oxyCODONE HCL 5 MG TABLET PO PRN ×3 (00:55→22:16)
[2020-04-01] MEDS: ACETAMINOPHEN 325 MG TABLET (FP) PO PRN (00:56)
[2020-04-01] MEDS: MORPHINE SULFATE 2 MG/ML VIAL IVPUSH PRN ×2 (01:34→06:12)
[2020-04-01] MEDS ORDERED: SUCCINYLCHOLINE CHLORIDE 200 MG/10 ML SYRINGE ONE (08:00)
[2020-04-01] MEDS ORDERED: EPHEDRINE SULFATE/0.9% NACL/PF 50 MG/10 ML SYRINGE NR ONE (08:00)
[2020-04-01] MEDS ORDERED: PROPOFOL 20 ML ONE ×5 (08:00→11:27)
[2020-04-01] MEDS ORDERED: ATROPINE SULFATE 1 MG/10 ML DISP.SYRIN ONE (08:00)
[2020-04-01] MEDS ORDERED: TRANEXAMIC ACID 1000 MG/10 ML VIAL ONE ×2 (08:01→08:36)
[2020-04-01 08:13] LABS: CALCIUM 9.1 mg/dl (8.5-10); CREATININE 0.6 mg/dl (0.55-1.3); POTASSIUM 4.2 mmol/L (3.5-5.1)
[2020-04-01] MEDS ORDERED: BUPIVACAINE HCL/PF 0.5% (5 MG/ML) 30 ML VIAL IJ ONE (08:25)
[2020-04-01] MEDS ORDERED: MIDAZOLAM HCL 2 MG/2 ML SINGLE DOSE VIAL ONE ×4 (08:25→11:52)
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
[2020-04-01] MEDS ORDERED: LIDOCAINE HCL/PF 2% SDV 5ML VIAL ONE (08:33)
[2020-04-01] MEDS ORDERED: VANCOMYCIN 1,000 MG VIAL (RESTRICTED TO ID ONLY) ONE (09:06)
[2020-04-01] MEDS ORDERED: BUPIVICAINE 0.25%/MORPH PF/KETOROLAC - 51ML DISP.SYRINGE IA ONE ×2 (10:41→12:01)
--- NOTE | 2020-04-01 11:18 | PN ---
Physical Exam: SUBJECTIVE: Patient seen and examined at bedside following return from OR. Denies any pain. OBJECTIVE: Vital Signs Period Temp Pulse Resp BP Sys/Isabel Pulse Ox Last 24 Hr 98.1 F-98.9 F 62-100 18-20 108-129/72-94 95-98 GENERAL: The patient is awake, alert, and fully oriented, in no acute distress. LUNGS: Breath sounds equal, clear to auscultation bilaterally, no wheezes, no crackles, no accessory muscle use. HEART: Regular rate and rhythm, S1, S2 ABDOMEN: Soft, nontender, nondistended RLE: Surgical dressing c/d/i; +flex/extend toes, sensory intact NEUROLOGICAL: Cranial nerves II through XII grossly intact. Normal speech, gait not observed Laboratory Results - last 24 hr 04/01/20 07:12 Sodium 130 L Potassium 4.2 Chloride 97 L Carbon Dioxide 23 Anion Gap 10 BUN 8.0 Creatinine 0.6 Est GFR (CKD-EPI)AfAm 135.87 Est GFR (CKD-EPI)NonAf 117.23 Random Glucose 90 Calcium 9.1 Active Medications Generic Name Dose Route Start Last Admin Trade Name Freq PRN Reason Stop Dose Admin Acetaminophen 325 mg 03/26/20 23:00 04/01/20 00:56 Tylenol - PO 325 mg Q6H PRN Administration PAIN LEVEL 6-10 Amlodipine Besylate 5 mg 03/27/20 10:00 03/31/20 09:49 Norvasc - PO 5 mg DAILY [facility] Administration Docusate Sodium 100 mg 03/29/20 13:01 Colace - PO Q8H PRN CONSTIPATION Gabapentin 300 mg 03/29/20 10:45 03/31/20 21:09 Neurontin - PO 300 mg BID [facility] Administration Lidocaine 1 patch 03/29/20 10:45 03/31/20 09:48 Lidoderm Patch - TP 1 patch DAILY [facility] Administration Lisinopril 10 mg 03/27/20 10:00 03/31/20 09:49 Prinivil PO 10 mg DAILY [facility] Administration Miscellaneous 1 each 03/29/20 22:00 03/31/20 21:09 Lidoderm Patch Removal MC 1 each DAILY@2200 [facility] Administration Morphine Sulfate 2 mg 03/29/20 13:01 04/01/20 06:12 Morphine Sulfate IVPUSH 2 mg Q4H PRN Administration PAIN LEVEL 7 - 10 Nicotine 21 mg 03/28/20 14:00 03/31/20 09:48 Nicoderm Patch - TD 21 mg DAILY [facility] Administration Oxycodone HCl 10 mg 03/29/20 13:02 04/01/20 00:55 Roxicodone - PO 10 mg Q6H PRN Administration PAIN LEVEL 6-10 Paroxetine HCl 20 mg 03/27/20 10:00 03/31/20 09:49 Paxil - PO 20 mg DAILY [facility] Administration Senna 2 tab 03/29/20 17:27 Senna - PO HS PRN CONSTIPATION ASSESSMENT/PLAN: 50 year-old male with a PMH significant for HTN and severe osteoarthritis of the right hip. Was scheduled for hip replacement surgery a month ago but was p ostponed due to infected teeth. Admitted on 03/26 for worsening pain in the right hip and found to have a fracture of the right femoral head. Also admitted for severe hyponatremia. Patient is s/p right total hip replacement [facility] today with Dr. Russ. s/p Right total hip replacement [facility] --POD #0 --perioperative antibiotics per surgery --pain management --bowel regimen Hyponatremia --improved --off fluids, continue to hold thiazides Hypertension --BP stable --continue amlodipine, lisinopril Depression --continue paroxetine FEN Fluids: PO intake adequate Electrolytes: replete as indicated Nutrition: regular diet DVT prophylaxis: OOB, ambulation, SCDs, start subq lovenox 24 hours after surgery if no bleeding Physical therapy Dispo: continues to require inpatient care. Full code. Visit type - Emergency Visit Emergency Visit: Yes ED Registration Date: 03/26/20 Care time: The patient presented to the Emergency Department on the above date and was hospitalized for further evaluation of their emergent condition. - New Patient This patient is new to me today: No - Critical Care Critical Care patient: No
[2020-04-01] MEDS ORDERED: VANCOMYCIN 1,000 MG VIAL (RESTRICTED TO ID ONLY) IVPB ONE (11:59)
[2020-04-01] MEDS ORDERED: BUPIVACAINE HCL/PF 2.5 MG/ML - 30 ML VIAL IJ ONE (12:23)
[2020-04-01] MEDS ORDERED: BUPIVACAINE HCL/PF 0.25% (2.5MG/ML) 10 ML VIAL IJ ONE (12:25)
--- NOTE | 2020-04-01 13:01 | OPR ---
DATE OF OPERATION: 04/01/2020 TITLE OF OPERATION: Right Total Hip Replacement PREOPERATIVE DIAGNOSIS: Right Hip femoral head fracture, osteoarthritis POSTOPERATIVE DIAGNOSIS: Right Hip femoral head fracture, osteoarthritis SURGEON: Ozzy Russ DO SENIOR PRINCIPAL: Jose Ramon Joy DO ANESTHESIA: Spinal anesthesia with sedation SPECIMEN: Femoral head PROSTHETIC DEVICE/IMPLANT: Trident II Acetabular Shell size 56 (D); Trident X3 Polyethylene insert Size 36 (D); Accolade II 127 degree neck angle stem, size 4; Biolox Delta Ceramic Femoral Head (Size 36, 5.0 neck length); COMPLICATIONS: none EBL: 300 mL INDICATIONS FOR SURGERY: Mr. Ford is a 50 year old male who presented in the preoperative setting with a chief complaint of right hip femoral head fracture, with history of severe right hip osteoarthritis with severe hip pain, an antalgic gate and 2cm measured pre-op leg length discrepancy; The patient was initially treated non-operatively with medications, home exercises and physical therapy, but continued to have severe pain and ambulatory dysfunction, and then was admitted to the hospital with a right hip femoral head fracture and hyponatremia. He was medically optimized and was indicated for a right total hip replacement with MAKOplasty robotic navigation. The risks and benefits of surgery and anesthesia were discussed in detail including but not limited to MS, , stroke, dislocation, leg length discrepancy, squeaking of implant, infection, continued pain, bleeding, blood clot, scarring/arthrofibrosis, development of heterotopic ossification, damage to vessels and nerves, instability or loosening of implant, difficulty ambulating, esther-prosthetic fracture, failure to obtain the desired result, failure to heal, failure to return to significant activity. Understanding the risks and benefits, Mr. Ford opted to proceed with surgical management. SURGEON'S NARRATIVE: On the day of surgery the patient was taken to the operating room and placed on the OR table. Spinal anesthesia was administered by the anesthesiologist. The patient was then positioned in the lateral decubitus position on the table and all bony prominences were padded. An axillary roll was placed. The operative hip was then prepped and draped in the usual sterile fashion, and intravenous antibiotics were given for infection prophylaxis. A surgical time-out was then performed with the team, and the patients identity, procedure, operative side, availability of implants, and the administration of antibiotics and tranexamic acid were confirmed. Three small stab incisions were made superior to the planned main incision along the iliac crest. Three self-drilling Steinmann pins were then placed and the Bangcle pelvic array was attached. An approximately 10cm incision was made through the skin centered on the posterior aspect of the greater trochanter of the hip, with a slight downturn postero-superiorly. This dissection was carried down through the subcutaneous tissues to the deep fascia. This fascia was then sharply incised and curved perez was used to elongate this incision. The charnley retractor was then placed, making sure it did not capture the sciatic nerve posteriorly. Electrocautery was then used to reflect the bursa from anterior to posterior. Bleeders were identified and cauterized. The hip was internally rotated, the external rotators of the hip were identified, and the piriformis tendon and adjacent external rotators were tagged using a number 1 vicryl suture. The piriformis tendon was then released, the external rotators reflected, and the posterior capsule was then identified. A posterior capsulotomy was performed in a T-shaped fashion, and a #2 Fiberwire was placed into each limb of the capsule for later repair. An Acetabulum checkpoint was appropriately placed prior to dislocation of the hip. Reference points on the limb were then entered into the robotic device. The hip was dislocated, and the acetabulum, femoral head and neck were visualized. There was a fracture of the femoral head, and significant callous formation within the hip joint, with significant scarring of surrounding tissue. Additionally, Grade IV changes were noted diffusely throughout the joint. An oscillating saw was used to make the femoral neck cut at the level previously templated, and the remaining femoral head was removed from the acetabulum. Attention was then turned to the acetabulum. Retractors were placed around the acetabulum and the labrum was removed. The acetabulum checkpoint pin and Bangcle software were used to register the contours of the acetabulum. The acetabulum was then reamed in a single stage to the preoperatively templated size using the Bangcle robotic arm. The appropriately sized cup was then impacted and had solid fixation as well as the preset inclination and version. A 20mm screw was placed into the acetabulum for additional fixation. A polyethylene liner was then placed in the cup. Attention was then turned back to the femur, which was internally rotated for improved visualization. A femoral neck elevator was used to present the femoral neck cut. A box osteotome was used to enter the femoral canal, and a canal finder was used to go down the femoral shaft. The Arvin broaches were used sequentially until the optimal scratch fit was achieved. This correlated with the preoperatively templated size. From here, several different offset head and neck configurations were tested with trial components until excellent stability and length were obtained. All trial components were then removed, the femur was copiously irrigated, and the final components were placed. Leg length and stability were checked again and found to be excellent. An approximately three- minute diluted betadine soak was performed, followed by thorough pulsatile irrigation with normal saline. One gram of vancomycin powder was then spread around the joint tissues. Wound closure was started by repair of the piriformis and external rotators along with the capsule limbs using bone tunnels through the greater trochanter and tied over a bony bridge. Next, a number 1 vicryl suture was used to repair and close the fascia. The deep subcutaneous tissue was closed with 0 vicryl sutures in layers, the superficial subcutaneous tissue was closed with 2-0 vicryl sutures, and the skin was closed using juan c. The Arvin array and pins were removed from the iliac crest and the stab incision sites were irrigated and closed with a 3-0 biosyn suture in simple interrupted form. Once this was completed, sterile dressings were applied including steri-strips and aquacell and ABD dressings. The patient was then awakened and turned to supine position. Post-operative X-rays were taken to confirm adequate placement of implants. No esther-prosthetic fractures were present. The patient was then taken to the PACU in stable condition. Post-Op Plan: WBAT / Physical Therapy BID Posterior Hip Precautions Abduction Pillow between legs DVT prophylaxis: ASA 325mg BID x 6 weeks, SCDs b/l LE D/C [place] on POD 14 Medical Management Dispo Planning
[2020-04-01] MEDS ORDERED: ONDANSETRON 4 MG/2 ML VIAL IVPUSH PRN (13:02)
[2020-04-01] MEDS ORDERED: MAG HYDROX/AL HYDROX/SIMETH 30 ML UNIT-DOSE CUP PO PRN (13:02)
[2020-04-01] MEDS ORDERED: MAGNESIUM HYDROX 2400MG/30ML ORAL SUSPENSION 30 ML CUP PO PRN (13:02)
[2020-04-01] MEDS ORDERED: oxyCODONE HCL 5 MG TABLET PO PRN (13:04)
[2020-04-01] MEDS ORDERED: LACTATED RINGERS SOLUTION 1,000 ML IV SCH (13:15)
[2020-04-01] MEDS ORDERED: ACETAMINOPHEN 325 MG TABLET (FP) PO SCH (13:15)
[2020-04-01 13:38] LABS: CALCIUM 8.4 mg/dl (8.5-10); CREATININE 0.6 mg/dl (0.55-1.3); POTASSIUM 4.5 mmol/L (3.5-5.1)
[2020-04-01 13:41] LABS: HEMATOCRIT 35.3 % (35.4-49); HEMOGLOBIN 11.9 GM/dl (11.7-16.9); MCHC 33.5 g/dl (32.0-35.9); MEAN CELL VOLUME 95.4 fl (80-96); MEAN PLT VOLUME 7.9 fl (7.5-11.1); PLATELET COUNT 355 K/MM3 (134-434); RDW 12.2 % (11.9-15.9); WHITE BLOOD COUNT 10.3 K/mm3 (4.0-10.8)
[2020-04-01 14:49] LABS: PLATELET ESTIMATE ADEQUATE
[2020-04-01] MEDS: CEFAZOLIN 2 GM/D5W 2 GM/50 ML ML IVPB SCH (16:43)
[2020-04-01] MEDS: LIDOCAINE 5% TOPICAL PATCH TP SCH (16:44)
[2020-04-01] MEDS: amLODIPine BESYLATE 5 MG TABLET (FP) PO SCH (16:47)
[2020-04-01] MEDS: NICOTINE 21 MG/24 HOURS TOPICAL PATCH TD SCH (16:47)
[2020-04-01] MEDS: PARoxetine HCL 20 MG TABLET PO SCH (16:47)
[2020-04-01] MEDS: LISINOPRIL 10 MG TABLET PO SCH (16:48)
[2020-04-01] MEDS: GABAPENTIN 300 MG CAPSULE PO SCH ×2 (16:53→21:08)
--- NOTE | 2020-04-01 17:49 | PN ---
Progress Note, Physician History of Present Illness: Pt seen and examined at bedside. He is awake and alert. He says he has been drinking 3 pitchers or water per day. - Current Medication List Current Medications: Active Medications Acetaminophen (Tylenol -) 650 mg PO Q6H [facility] Stop: 04/04/20 19:59 Al Hydroxide/Mg Hydroxide (Mylanta Oral Suspension -) 30 ml PO Q4H PRN PRN Reason: DYSPEPSIA Amlodipine Besylate (Norvasc -) 5 mg PO DAILY [facility] Last Admin: 04/01/20 16:47 Dose: Not Given Documented by: Aspirin (Asa -) 325 mg PO BID [facility] Fentanyl (Sublimaze Injection -) 50 mcg IVPUSH [id number] PRN PRN Reason: PAIN-PACU ORDER X 4 DOSES ONLY Gabapentin (Neurontin -) 300 mg PO BID [facility] Stop: 04/04/20 21:59 Lactated Ringer's (Lactated Ringers Solution) 1,000 mls @ 125 mls/hr IV ASDIR [facility] Stop: 04/02/20 06:00 Last Admin: 04/01/20 16:48 Dose: Not Given Documented by: Cefazolin Sodium/Dextrose (Ancef 2 Gm Premixed Ivpb -) 2 gm in 50 mls @ 100 mls/hr IVPB Q8H [facility] Stop: 04/02/20 01:29 Last Admin: 04/01/20 16:43 Dose: 100 mls/hr Documented by: Lidocaine (Lidoderm Patch -) 1 patch TP DAILY [facility] Last Admin: 04/01/20 16:44 Dose: Not Given Documented by: Lisinopril (Prinivil) 10 mg PO DAILY [facility] Last Admin: 04/01/20 16:48 Dose: Not Given Documented by: Magnesium Hydroxide (Milk Of Magnesia -) 30 ml PO PRN PRN PRN Reason: CONSTIPATION Miscellaneous (Lidoderm Patch Removal) 1 each MC DAILY@2200 [facility] Last Admin: 03/31/20 21:09 Dose: 1 each Documented by: Multivitamins/Minerals/Vitamin C (Tab-A-Vit -) 1 tab PO DAILY [facility] Nicotine (Nicoderm Patch -) 21 mg TD DAILY [facility] Last Admin: 04/01/20 16:47 Dose: 21 mg Documented by: Ondansetron HCl (Zofran Injection) 4 mg IVPUSH Q6H PRN PRN Reason: NAUSEA Oxycodone HCl (Oxycontin -) 10 mg PO BID [facility] Stop: 04/04/20 13:05 Oxycodone HCl (Roxicodone -) 5 mg PO Q3H PRN PRN Reason: PAIN LEVEL 1-5 Oxycodone HCl (Roxicodone -) 10 mg PO Q3H PRN PRN Reason: PAIN LEVEL 6-10 Pantoprazole Sodium (Protonix -) 40 mg PO DAILY [facility] Paroxetine HCl (Paxil -) 20 mg PO DAILY [facility] Last Admin: 04/01/20 16:47 Dose: Not Given Documented by: Senna/Docusate Sodium (Pericolace -) 2 tablet PO BID [facility] - Objective Vital Signs: Vital Signs Temperature 98.8 F 04/01/20 14:27 Pulse Rate 71 04/01/20 14:27 Respiratory Rate 17 04/01/20 14:27 Blood Pressure 126/68 04/01/20 14:27 O2 Sat by Pulse Oximetry (%) 96 04/01/20 14:27 Constitutional: Yes: Calm Eyes: Yes: Conjunctiva Clear HENT: Yes: Atraumatic Neck: Yes: Supple Cardiovascular: Yes: S1, S2 Respiratory: Yes: CTA Bilaterally Gastrointestinal: Yes: Soft Genitourinary: Yes: WNL Musculoskeletal: Yes: Other (s/p hip repair) Edema: No Neurological: Yes: Oriented Psychiatric: Yes: Oriented Labs: CBC, BMP 04/01/20 13:12 04/01/20 13:30 INR, PTT INR 1.06 (0.83-1.09) 03/26/20 14:06 Assessment/Plan Current Medications Generic Name Dose Route Start Last Admin Trade Name Freq PRN Reason Stop Dose Admin Acetaminophen 650 mg 04/01/20 20:00 Tylenol - PO 04/04/20 19:59 Q6H [facility] Al Hydroxide/Mg Hydroxide 30 ml 04/01/20 13:02 Mylanta Oral Suspension - PO Q4H PRN DYSPEPSIA Amlodipine Besylate 5 mg 03/27/20 10:00 04/01/20 16:47 Norvasc - PO Not Given DAILY [facility] Aspirin 325 mg 04/02/20 10:00 Asa - PO BID [facility] Fentanyl 50 mcg 04/01/20 13:04 Sublimaze Injection - IVPUSH [id number] PRN PAIN-PACU ORDER X 4 DOSES ONLY Gabapentin 300 mg 04/01/20 22:00 Neurontin - PO 04/04/20 21:59 BID [facility] Lactated Ringer's 1,000 mls @ 125 mls/hr 04/01/20 13:15 04/01/20 16:48 Lactated Ringers Solution IV 04/02/20 06:00 Not Given ASDIR KANWAL Cefazolin Sodium/Dextrose 2 gm in 50 mls @ 100 mls/hr 04/01/20 17:00 04/01/20 16:43 Ancef 2 Gm Premixed Ivpb - IVPB 04/02/20 01:29 100 mls/hr Q8H [facility] Administration Lidocaine 1 patch 03/29/20 10:45 04/01/20 16:44 Lidoderm Patch - TP Not Given DAILY [facility] Lisinopril 10 mg 03/27/20 10:00 04/01/20 16:48 Prinivil PO Not Given DAILY [facility] Magnesium Hydroxide 30 ml 04/01/20 13:02 Milk Of Magnesia - PO PRN PRN CONSTIPATION Miscellaneous 1 each 03/29/20 22:00 03/31/20 21:09 Lidoderm Patch Removal MC 1 each DAILY@2200 [facility] Administration Multivitamins/Minerals/Vitamin C 1 tab 04/02/20 10:00 Tab-A-Vit - PO DAILY [facility] Nicotine 21 mg 03/28/20 14:00 04/01/20 16:47 Nicoderm Patch - TD 21 mg DAILY [facility] Administration Ondansetron HCl 4 mg 04/01/20 13:02 Zofran Injection IVPUSH Q6H PRN NAUSEA Oxycodone HCl 10 mg 04/01/20 22:00 Oxycontin - PO 04/04/20 13:05 BID [facility] Oxycodone HCl 5 mg 04/01/20 13:04 Roxicodone - PO Q3H PRN PAIN LEVEL 1-5 Oxycodone HCl 10 mg 04/01/20 13:04 Roxicodone - PO Q3H PRN PAIN LEVEL 6-10 Pantoprazole Sodium 40 mg 04/02/20 10:00 Protonix - PO DAILY [facility] Paroxetine HCl 20 mg 03/27/20 10:00 04/01/20 16:47 Paxil - PO Not Given DAILY [facility] Senna/Docusate Sodium 2 tablet 04/01/20 22:00 Pericolace - PO BID [facility] Impression 1. hyponatremia 2. htn 3. depression 4. sciatica 5. arthritis Plan - d/c fluids - restrict free water to 1 liter (he has been drinking 3 liters per day) - thiazide on hold - consider changing paxil to alternate agent - will also give salt tabs - repeat labs in am
[2020-04-01] MEDS: ACETAMINOPHEN 325 MG TABLET (FP) PO SCH (20:12)
[2020-04-01] MEDS: SODIUM CHLORIDE 1 GM TABLET PO SCH (21:08)
[2020-04-01] MEDS: SENNOSIDES/DOCUSATE COMBO (SENNA PLUS) TABLET (UD) PO SCH (21:08)
[2020-04-01] MEDS: oxyCODONE HCL 10 MG SUSTAINED ACTING TABLET PO SCH (21:09)
[2020-04-01] MEDS: LIDOCAINE PATCH REMOVAL MC SCH (21:14)
[2020-04-02] MEDS: CEFAZOLIN 2 GM/D5W 2 GM/50 ML ML IVPB SCH (00:40)
[2020-04-02] MEDS: ACETAMINOPHEN 325 MG TABLET (FP) PO SCH ×4 (02:19→20:20)
[2020-04-02] MEDS: oxyCODONE HCL 5 MG TABLET PO PRN ×3 (04:18→12:18)
--- NOTE | 2020-04-02 07:59 | PN ---
Progress Note (short form) - Note Progress Note: 50M POD1 s/p R THR under spinal anesthetic with peripheral nerve blocks. Pt doing well, denies any anesthetic complications. Continue current regimen.
--- NOTE | 2020-04-02 08:08 | PN ---
Progress Note (short form) - Note Progress Note: ORTHOPEDIC SURGERY PROGRESS NOTE Department of Orthopedic Surgery SUBJECTIVE No acute events overnight. No complaints currently. Denies chest pain, shortness of breath, or calf pain. No nausea or vomiting. Tolerating oral intake. Pain controlled. Patient removed his SCDs and refused to put them back on. PHYSICAL EXAMINATION General: Alert, oriented, cooperative and no distress. Right Lower Extremity: Dressing C/D/I; Skin warm, dry, and intact; no lesions, rashes or ulcers noted. Muscle mass equal and symmetric to contralateral side. No atrophy noted. No masses or effusions noted. No cords or calf tenderness. Abduction pillow in place. No significant calf/ankle edema. LROM of the hip, consistent with my office examination. Full passive and active ROM of the knee and ankle and foot, free from pain. Joints stable with no pathologic laxity. EHL/TA/GS motor intact; SILT distally; 2+ DP pulses; Cap refill brisk. Tone and reflexes normal. DVT Exam: No evidence of DVT seen on physical exam; No cords or calf tenderness; No significant calf/ankle edema. Intake & Output 03/31/20 04/01/20 04/02/20 23:59 23:59 23:59 Intake Total 7150 250 Output Total 500 2000 350 Balance -500 5150 -100 Intake: IV 2300 IVPB 50 50 Oral 500 200 Other 4300 Output: Urine 500 1700 350 Void 500 1700 350 Estimated Blood Loss 300 Other: Voiding Method Urinal Urinal Toilet # Unmeasured Voids Void 2 Bowel Movement No No Body Mass Index (BMI) 30.2 Active Medications Generic Name Dose Route Start Last Admin Trade Name Freq PRN Reason Stop Dose Admin Acetaminophen 650 mg 04/01/20 20:00 04/02/20 02:19 Tylenol - PO 04/04/20 19:59 650 mg Q6H KANWAL Administration Al Hydroxide/Mg Hydroxide 30 ml 04/01/20 13:02 Mylanta Oral Suspension - PO Q4H PRN DYSPEPSIA Amlodipine Besylate 5 mg 03/27/20 10:00 04/01/20 16:47 Norvasc - PO Not Given DAILY KANWAL Aspirin 325 mg 04/02/20 10:00 Asa - PO BID KANWAL Gabapentin 300 mg 04/01/20 22:00 04/01/20 21:08 Neurontin - PO 04/04/20 21:59 300 mg BID [facility] Administration Lidocaine 1 patch 03/29/20 10:45 04/01/20 16:44 Lidoderm Patch - TP Not Given DAILY [facility] Lisinopril 10 mg 03/27/20 10:00 04/01/20 16:48 Prinivil PO Not Given DAILY [facility] Magnesium Hydroxide 30 ml 04/01/20 13:02 Milk Of Magnesia - PO PRN PRN CONSTIPATION Miscellaneous 1 each 03/29/20 22:00 04/01/20 21:14 Lidoderm Patch Removal MC Not Given DAILY@2200 [facility] Multivitamins/Minerals/Vitamin C 1 tab 04/02/20 10:00 Tab-A-Vit - PO DAILY [facility] Nicotine 21 mg 03/28/20 14:00 04/01/20 16:47 Nicoderm Patch - TD 21 mg DAILY [facility] Administration Ondansetron HCl 4 mg 04/01/20 13:02 Zofran Injection IVPUSH Q6H PRN NAUSEA Oxycodone HCl 10 mg 04/01/20 22:00 04/01/20 21:09 Oxycontin - PO 04/04/20 13:05 10 mg BID [facility] Administration Oxycodone HCl 5 mg 04/01/20 13:04 Roxicodone - PO Q3H PRN PAIN LEVEL 1-5 Oxycodone HCl 10 mg 04/01/20 13:04 04/02/20 04:18 Roxicodone - PO 10 mg Q3H PRN Administration PAIN LEVEL 6-10 Pantoprazole Sodium 40 mg 04/02/20 10:00 Protonix - PO DAILY [facility] Paroxetine HCl 20 mg 03/27/20 10:00 04/01/20 16:47 Paxil - PO Not Given DAILY [facility] Senna/Docusate Sodium 2 tablet 04/01/20 22:00 04/01/20 21:08 Pericolace - PO 2 tablet BID [facility] Administration Sodium Chloride 1 gm 04/01/20 22:00 04/01/20 21:08 Sodium Chloride Tablet - PO 1 gm BID KANWAL Administration Vital Signs (last) Temp Pulse Resp BP Pulse Ox 98.7 F 78 18 121/69 90 L 04/02/20 05:00 04/02/20 05:00 04/02/20 05:00 04/02/20 05:00 04/02/20 05:00 Laboratory (coagulation) PT with INR 12.50 SEC (9.7-13.0) 03/26/20 14:06 Laboratory 04/01/20 13:12 04/01/20 13:30 ASSESSMENT AND PLAN Mr. Ford is a 50 year old male s/p Right MICHAELA POD 1 - Pain control: Transition to oral pain medications, minimize narcotic use - DVT prophylaxis (ASA 325 BID x 6 weeks) ; SCD's b/l; Spoke to the patient about importance of the SCDs to prevent blood clots and he agreed to keep them on. - Ice to right hip - Elevate HOB, encourage oral intake - Appreciate medical management (Nutrition optimization, decubitus precautions heel/sacrum) - WBAT RLE; Physical Therapy Duc. Strict Posterior Hip Precautions. - DC [place] POD 14, follow up in office for staple removal.
[2020-04-02 08:27] LABS: BASO % 0.5 % (0-2.0); EOS % 0.6 % (0-4.5); HEMATOCRIT 32.7 % (35.4-49); HEMOGLOBIN 10.7 GM/dl (11.7-16.9); MCH 31.5 pg (25.7-33.7); MCHC 32.6 g/dl (32.0-35.9); MEAN CELL VOLUME 96.3 fl (80-96); MEAN PLT VOLUME 8.1 fl (7.5-11.1); MONO % 10.4 % (3.8-10.2); NEUT % 69.5 % (42.8-82.8); PLATELET COUNT 339 K/MM3 (134-434); RDW 12.3 % (11.9-15.9); WHITE BLOOD COUNT 11.5 K/mm3 (4.0-10.8)
[2020-04-02 09:18] LABS: CALCIUM 8.2 mg/dl (8.5-10); CREATININE 0.6 mg/dl (0.55-1.3); MAGNESIUM 1.8 mg/dL (1.8-2.4); POTASSIUM 3.7 mmol/L (3.5-5.1)
[2020-04-02 09:19] LABS: ALBUMIN 2.7 g/dl (3.4-5.0); BILIRUBIN,TOTAL 0.8 mg/dl (0.2-1); TOT PROT 5.4 g/dl (6.4-8.2)
[2020-04-02] MEDS: LIDOCAINE 5% TOPICAL PATCH TP SCH (09:43)
[2020-04-02] MEDS: LISINOPRIL 10 MG TABLET PO SCH (09:44)
[2020-04-02] MEDS: NICOTINE 21 MG/24 HOURS TOPICAL PATCH TD SCH (09:44)
[2020-04-02] MEDS: GABAPENTIN 300 MG CAPSULE PO SCH ×2 (09:44→21:24)
[2020-04-02] MEDS: oxyCODONE HCL 10 MG SUSTAINED ACTING TABLET PO SCH (09:44)
[2020-04-02] MEDS: PANTOPRAZOLE 40 MG TABLET PO SCH (09:45)
[2020-04-02] MEDS: MULTIVITAMINS (DAILY MVI) TABLET (FP) PO SCH (09:45)
[2020-04-02] MEDS: PARoxetine HCL 20 MG TABLET PO SCH (09:45)
[2020-04-02] MEDS: amLODIPine BESYLATE 5 MG TABLET (FP) PO SCH (09:45)
[2020-04-02] MEDS: SENNOSIDES/DOCUSATE COMBO (SENNA PLUS) TABLET (UD) PO SCH ×2 (09:45→21:24)
[2020-04-02] MEDS: ASPIRIN 325 MG TABLET PO SCH ×2 (09:45→21:24)
[2020-04-02] MEDS: SODIUM CHLORIDE 1 GM TABLET PO SCH ×2 (09:47→21:24)
[2020-04-02] MEDS ORDERED: ENOXAPARIN NA (PORCINE) 40 MG/0.4 ML DISP.SYRIN SQ SCH (10:45)
--- NOTE | 2020-04-02 10:47 | PN ---
"Physical Exam: SUBJECTIVE: Patient was observed by this provider walking in the hallway with PT using a walker. He was SOB, diaphoretic, and tremulous. He was seated in a wheelchair. Vitals were stable. Patient denied chest pain, palpitations, dizziness, nausea, or any other focal symptoms. Patient stated he always sweats and he has tremors because he is withdrawing from nicotine. OBJECTIVE: Vital Signs Temperature 98.7 F 04/02/20 05:00 Pulse Rate 78 04/02/20 05:00 Respiratory Rate 16 04/02/20 08:21 Blood Pressure 121/69 04/02/20 05:00 O2 Sat by Pulse Oximetry (%) 96 04/02/20 08:21 GENERAL: The patient is awake, alert, and fully oriented, in no acute distress. NEUROLOGICAL: Bilateral hand tremors LUNGS: Breath sounds equal, clear to auscultation bilaterally, no wheezes, no crackles, no accessory muscle use. HEART: Regular rate and rhythm, S1, S2 ABDOMEN: Soft, nontender, nondistended RLE: Surgical dressing c/d/i; +flex/extend toes, sensory intact Laboratory Results - last 24 hr 04/01/20 04/01/20 04/02/20 13:12 13:30 07:00 WBC 10.3 11.5 H RBC 3.70 L 3.40 L Hgb 11.9 10.7 L Hct 35.3 L 32.7 L MCV 95.4 96.3 H MCH 32.0 31.5 MCHC 33.5 32.6 RDW 12.2 12.3 Plt Count 355 339 MPV 7.9 8.1 Absolute Neuts (auto) 9.4 7.9 Neutrophils % No Result Required. 69.5 Neutrophils % (Manual) 90.0 H Band Neutrophils % 2.0 Lymphocytes % No Result Required. 19.0 Lymphocytes % (Manual) 4.0 L Monocytes % 10.4 H Monocytes % (Manual) 3 L Eosinophils % 0.6 Eosinophils % (Manual) 1.0 Basophils % 0.5 Hypochromia 1+ Platelet Estimate Adequate Sodium 130 L Potassium 4.5 Chloride 98 Carbon Dioxide 25 Anion Gap 7 L BUN 7.0 Creatinine 0.6 Est GFR (CKD-EPI)AfAm 135.87 Est GFR (CKD-EPI)NonAf 117.23 Random Glucose 122 H Calcium 8.4 L Magnesium Total Bilirubin AST ALT Alkaline Phosphatase Total Protein Albumin 04/02/20 07:00 WBC RBC Hgb Hct MCV MCH MCHC RDW Plt Count MPV Absolute Neuts (auto) Neutrophils % Neutrophils % (Manual) Band Neutrophils % Lymphocytes % Lymphocytes % (Manual) Monocytes % Monocytes % (Manual) Eosinophils % Eosinophils % (Manual) Basophils % Hypochromia Platelet Estimate Sodium 129 L Potassium 3.7 Chloride 96 L Carbon Dioxide 25 Anion Gap 8 BUN 9.0 Creatinine 0.6 Est GFR (CKD-EPI)AfAm 135.87 Est GFR (CKD-EPI)NonAf 117.23 Random Glucose 96 Calcium 8.2 L Magnesium 1.8 Total Bilirubin 0.8 AST 46 H ALT 56 Alkaline Phosphatase 65 Total Protein 5.4 L Albumin 2.7 L Current Medications Generic Name Dose Route Start Last Admin Trade Name Freq PRN Reason Stop Dose Admin Acetaminophen 650 mg 04/01/20 20:00 04/02/20 08:16 Tylenol - PO 04/04/20 19:59 650 mg Q6H KANWAL Administration Al Hydroxide/Mg Hydroxide 30 ml 04/01/20 13:02 Mylanta Oral Suspension - PO Q4H PRN DYSPEPSIA Amlodipine Besylate 5 mg 03/27/20 10:00 04/02/20 09:45 Norvasc - PO 5 mg DAILY KANWAL Administration Aspirin 325 mg 04/02/20 10:00 04/02/20 09:45 Asa - PO 325 mg BID KANWAL Administration Gabapentin 300 mg 04/01/20 22:00 04/02/20 09:44 Neurontin - PO 04/04/20 21:59 300 mg BID KANWAL Administration Lidocaine 1 patch 03/29/20 10:45 04/02/20 09:43 Lidoderm Patch - TP 1 patch DAILY KANWAL Administration Lisinopril 10 mg 03/27/20 10:00 04/02/20 09:44 Prinivil PO 10 mg DAILY KANWAL Administration Magnesium Hydroxide 30 ml 04/01/20 13:02 Milk Of Magnesia - PO PRN PRN CONSTIPATION Miscellaneous 1 each 03/29/20 22:00 04/01/20 21:14 Lidoderm Patch Removal MC Not Given DAILY@2200 K[facility]AL Multivitamins/Minerals/Vitamin C 1 tab 04/02/20 10:00 04/02/20 09:45 Tab-A-Vit - PO 1 tab DAILY KANWAL Administration Nicotine 21 mg 03/28/20 14:00 04/02/20 09:44 Nicoderm Patch - TD 21 mg DAILY KANWAL Administration Ondansetron HCl 4 mg 04/01/20 13:02 Zofran Injection IVPUSH Q6H PRN NAUSEA Oxycodone HCl 5 mg 04/01/20 13:04 Roxicodone - PO Q3H PRN PAIN LEVEL 1-5 Oxycodone HCl 10 mg 04/01/20 13:04 04/02/20 12:18 Roxicodone - PO 10 mg Q3H PRN Administration PAIN LEVEL 6-10 Pantoprazole Sodium 40 mg 04/02/20 10:00 04/02/20 09:45 Protonix - PO 40 mg DAILY KANWAL Administration Paroxetine HCl 20 mg 03/27/20 10:00 04/02/20 09:45 Paxil - PO 20 mg DAILY K[facility]WAL Administration Senna/Docusate Sodium 2 tablet 04/01/20 22:00 04/02/20 09:45 Pericolace - PO 2 tablet BID KANWAL Administration Sodium Chloride 1 gm 04/01/20 22:00 04/02/20 09:47 Sodium Chloride Tablet - PO 1 gm BID KANWAL Administration ASSESSMENT/PLAN: 50 year-old male with a PMH significant for HTN and severe osteoarthritis of the right hip. Patient is s/p right total hip replacement ROBSON. Diaphoresis Tremors SOB --ECG without significant change, no acute ischemia --troponins x 3 --cardiac monitoring --orthostatics r/o Opiate dependence --patient becomes irritable, raises voice demanding larger doses of oxycodone than prescribed; RN inquired about pain meds taken at home, patient became angry and conveyed through his girlfriend he is not to be questioned about the medications he takes at home --will discuss pain management going forward with surgical team --ISTOP inquiry below Hyponatremia --dropped again to 129; spoke with Dr. Teresa's office, preop Na was 130 --fluid restriction 1L --salt tabs s/p Right total hip replacement ROBSON --POD #1 --perioperative antibiotics per surgery --d/c juan c POD 14 Hypertension --BP stable --continue amlodipine, lisinopril Depression --continue paroxetine FEN Fluids: PO intake adequate Electrolytes: replete as indicated Nutrition: regular diet DVT prophylaxis: OOB, ambulation, SCDs, ASA 325mg BID x 6 weeks Physical therapy Dispo: continues to require inpatient care. Full code. I STOP Search Terms: hira ibarra, 1970earch Date: 04/02/2020 13:50:19 PM The Drug Utilization Report below displays all of the controlled substance prescriptions, if any, that your patient has filled in the last twelve months. The information displayed on this report is compiled from pharmacy submissions to the Department, and accurately reflects the information as submitted by the pharmacies. This report was requested by: Griselda Meléndez | Reference #: [id number] Others' Prescriptions Patient Name: Hira IbarraBirth Date: 1970 Address: [address] [place] [id number]: Male Rx Written Rx Dispensed Drug Quantity Days Supply Prescriber Name Payment Method Dispenser 12/08/2019 12/15/2019 oxycodone-acetaminophen 5-325 mg tab 90 30 Braxton Stanton [facility] [employer] [facility] 11/14/2019 11/15/2019 oxycodone-acetaminophen 5-325 mg tablet 90 30 Braxton Stanton M [facility] 11/08/2019 11/08/2019 oxycodone-acetaminophen 5-325 mg tablet 28 7 Braxton Stanton M [facility] 10/23/2019 10/23/2019 hydrocodone-acetaminophen 7.5-325 mg tablet 15 5 Bruno Johnston [employer] [facility] Patient Name: Hira IbarraBirth Date: 1970 Address: [address] [place] [id number]: Male Rx Written Rx Dispensed Drug Quantity Days Supply Prescriber Name Payment Method Dispenser 03/21/2020 03/21/2020 tramadol hcl 50 mg tablet 20 10 Ozzy Russ [id number] * - Drugs marked with an asterisk are compound drugs. If the compound drug is made up of more than one controlled substance, then each controlled substance will be a separate row in the table."
--- NOTE | 2020-04-02 10:49 | PN ---
Progress Note, Physician History of Present Illness: Pt seen and examined at bedside. He is awake and alert. He denies shortness of breath. He denies lower est edema. - Current Medication List Current Medications: Active Medications Acetaminophen (Tylenol -) 650 mg PO Q6H [facility] Stop: 04/04/20 19:59 Last Admin: 04/02/20 08:16 Dose: 650 mg Documented by: Al Hydroxide/Mg Hydroxide (Mylanta Oral Suspension -) 30 ml PO Q4H PRN PRN Reason: DYSPEPSIA Amlodipine Besylate (Norvasc -) 5 mg PO DAILY [facility] Last Admin: 04/02/20 09:45 Dose: 5 mg Documented by: Aspirin (Asa -) 325 mg PO BID [facility] Last Admin: 04/02/20 09:45 Dose: 325 mg Documented by: Gabapentin (Neurontin -) 300 mg PO BID [facility] Stop: 04/04/20 21:59 Last Admin: 04/02/20 09:44 Dose: 300 mg Documented by: Lidocaine (Lidoderm Patch -) 1 patch TP DAILY [facility] Last Admin: 04/02/20 09:43 Dose: 1 patch Documented by: Lisinopril (Prinivil) 10 mg PO DAILY [facility] Last Admin: 04/02/20 09:44 Dose: 10 mg Documented by: Magnesium Hydroxide (Milk Of Magnesia -) 30 ml PO PRN PRN PRN Reason: CONSTIPATION Miscellaneous (Lidoderm Patch Removal) 1 each MC DAILY@2200 [facility] Last Admin: 04/01/20 21:14 Dose: Not Given Documented by: Multivitamins/Minerals/Vitamin C (Tab-A-Vit -) 1 tab PO DAILY [facility] Last Admin: 04/02/20 09:45 Dose: 1 tab Documented by: Nicotine (Nicoderm Patch -) 21 mg TD DAILY [facility] Last Admin: 04/02/20 09:44 Dose: 21 mg Documented by: Ondansetron HCl (Zofran Injection) 4 mg IVPUSH Q6H PRN PRN Reason: NAUSEA Oxycodone HCl (Roxicodone -) 5 mg PO Q3H PRN PRN Reason: PAIN LEVEL 1-5 Oxycodone HCl (Roxicodone -) 10 mg PO Q3H PRN PRN Reason: PAIN LEVEL 6-10 Last Admin: 04/02/20 08:08 Dose: 10 mg Documented by: Pantoprazole Sodium (Protonix -) 40 mg PO DAILY [facility] Last Admin: 04/02/20 09:45 Dose: 40 mg Documented by: Paroxetine HCl (Paxil -) 20 mg PO DAILY [facility] Last Admin: 04/02/20 09:45 Dose: 20 mg Documented by: Senna/Docusate Sodium (Pericolace -) 2 tablet PO BID [facility] Last Admin: 04/02/20 09:45 Dose: 2 tablet Documented by: Sodium Chloride (Sodium Chloride Tablet -) 1 gm PO BID [facility] Last Admin: 04/02/20 09:47 Dose: 1 gm Documented by: - Objective Vital Signs: Vital Signs Temperature 98.7 F 04/02/20 05:00 Pulse Rate 78 04/02/20 05:00 Respiratory Rate 16 04/02/20 08:21 Blood Pressure 121/69 04/02/20 05:00 O2 Sat by Pulse Oximetry (%) 96 04/02/20 08:21 Constitutional: Yes: Calm Eyes: Yes: Conjunctiva Clear HENT: Yes: Atraumatic Neck: Yes: Supple Cardiovascular: Yes: S1, S2 Respiratory: Yes: CTA Bilaterally Gastrointestinal: Yes: Soft Genitourinary: Yes: WNL Edema: No Integumentary: Yes: WNL Neurological: Yes: Oriented Psychiatric: Yes: Oriented Labs: CBC, BMP 04/02/20 07:00 04/02/20 07:00 INR, PTT INR 1.06 (0.83-1.09) 03/26/20 14:06 Assessment/Plan Current Medications Generic Name Dose Route Start Last Admin Trade Name Jameq PRN Reason Stop Dose Admin Acetaminophen 650 mg 04/01/20 20:00 04/02/20 08:16 Tylenol - PO 04/04/20 19:59 650 mg Q6H KANWAL Administration Al Hydroxide/Mg Hydroxide 30 ml 04/01/20 13:02 Mylanta Oral Suspension - PO Q4H PRN DYSPEPSIA Amlodipine Besylate 5 mg 03/27/20 10:00 04/02/20 09:45 Norvasc - PO 5 mg DAILY [facility] Administration Aspirin 325 mg 04/02/20 10:00 04/02/20 09:45 Asa - PO 325 mg BID [facility] Administration Gabapentin 300 mg 04/01/20 22:00 04/02/20 09:44 Neurontin - PO 04/04/20 21:59 300 mg BID [facility]WAL Administration Lidocaine 1 patch 03/29/20 10:45 04/02/20 09:43 Lidoderm Patch - TP 1 patch DAILY [facility] Administration Lisinopril 10 mg 03/27/20 10:00 04/02/20 09:44 Prinivil PO 10 mg DAILY [facility] Administration Magnesium Hydroxide 30 ml 04/01/20 13:02 Milk Of Magnesia - PO PRN PRN CONSTIPATION Miscellaneous 1 each 03/29/20 22:00 04/01/20 21:14 Lidoderm Patch Removal MC Not Given DAILY@2200 [facility] Multivitamins/Minerals/Vitamin C 1 tab 04/02/20 10:00 04/02/20 09:45 Tab-A-Vit - PO 1 tab DAILY [facility] Administration Nicotine 21 mg 03/28/20 14:00 04/02/20 09:44 Nicoderm Patch - TD 21 mg DAILY [facility]AL Administration Ondansetron HCl 4 mg 04/01/20 13:02 Zofran Injection IVPUSH Q6H PRN NAUSEA Oxycodone HCl 5 mg 04/01/20 13:04 Roxicodone - PO Q3H PRN PAIN LEVEL 1-5 Oxycodone HCl 10 mg 04/01/20 13:04 04/02/20 08:08 Roxicodone - PO 10 mg Q3H PRN Administration PAIN LEVEL 6-10 Pantoprazole Sodium 40 mg 04/02/20 10:00 04/02/20 09:45 Protonix - PO 40 mg DAILY KANWAL Administration Paroxetine HCl 20 mg 03/27/20 10:00 04/02/20 09:45 Paxil - PO 20 mg DAILY [facility] Administration Senna/Docusate Sodium 2 tablet 04/01/20 22:00 04/02/20 09:45 Pericolace - PO 2 tablet BID K[facility]AL Administration Sodium Chloride 1 gm 04/01/20 22:00 04/02/20 09:47 Sodium Chloride Tablet - PO 1 gm BID [facility]AN[facility]AL Administration Impression 1. hyponatremia 2. htn 3. depression 4. sciatica 5. arthritis Plan - fluids stopped - restrict free water - monitor response - follow urine studies - repeat labs in am
--- NOTE | 2020-04-02 14:17 | HOSP ---
"Subjective - Review of Symptoms Events since last encounter: SUBJECTIVE: Patient was observed by this provider walking in the hallway with PT using a walker. He was SOB, diaphoretic, and tremulous. Vitals were stable. Patient stated he always sweats and he has tremors because he is withdrawing from nicotine. Patient denied chest pain, palpitations, dizziness, nausea, or any other focal symptoms. OBJECTIVE: Vital Signs Temperature 98.7 F 04/02/20 05:00 Pulse Rate 78 04/02/20 05:00 Respiratory Rate 16 04/02/20 08:21 Blood Pressure 121/69 04/02/20 05:00 O2 Sat by Pulse Oximetry (%) 96 04/02/20 08:21 GENERAL: The patient is awake, alert, and fully oriented, in no acute distress. NEUROLOGICAL: Bilateral hand tremors LUNGS: Breath sounds equal, clear to auscultation bilaterally, no wheezes, no crackles, no accessory muscle use. HEART: Regular rate and rhythm, S1, S2 ABDOMEN: Soft, nontender, nondistended RLE: Surgical dressing c/d/i; +flex/extend toes, sensory intact Laboratory Results - last 24 hr 04/01/20 04/01/20 04/02/20 13:12 13:30 07:00 WBC 10.3 11.5 H RBC 3.70 L 3.40 L Hgb 11.9 10.7 L Hct 35.3 L 32.7 L MCV 95.4 96.3 H MCH 32.0 31.5 MCHC 33.5 32.6 RDW 12.2 12.3 Plt Count 355 339 MPV 7.9 8.1 Absolute Neuts (auto) 9.4 7.9 Neutrophils % No Result Required. 69.5 Neutrophils % (Manual) 90.0 H Band Neutrophils % 2.0 Lymphocytes % No Result Required. 19.0 Lymphocytes % (Manual) 4.0 L Monocytes % 10.4 H Monocytes % (Manual) 3 L Eosinophils % 0.6 Eosinophils % (Manual) 1.0 Basophils % 0.5 Hypochromia 1+ Platelet Estimate Adequate Sodium 130 L Potassium 4.5 Chloride 98 Carbon Dioxide 25 Anion Gap 7 L BUN 7.0 Creatinine 0.6 Est GFR (CKD-EPI)AfAm 135.87 Est GFR (CKD-EPI)NonAf 117.23 Random Glucose 122 H Calcium 8.4 L Magnesium Total Bilirubin AST ALT Alkaline Phosphatase Total Protein Albumin 04/02/20 07:00 WBC RBC Hgb Hct MCV MCH MCHC RDW Plt Count MPV Absolute Neuts (auto) Neutrophils % Neutrophils % (Manual) Band Neutrophils % Lymphocytes % Lymphocytes % (Manual) Monocytes % Monocytes % (Manual) Eosinophils % Eosinophils % (Manual) Basophils % Hypochromia Platelet Estimate Sodium 129 L Potassium 3.7 Chloride 96 L Carbon Dioxide 25 Anion Gap 8 BUN 9.0 Creatinine 0.6 Est GFR (CKD-EPI)AfAm 135.87 Est GFR (CKD-EPI)NonAf 117.23 Random Glucose 96 Calcium 8.2 L Magnesium 1.8 Total Bilirubin 0.8 AST 46 H ALT 56 Alkaline Phosphatase 65 Total Protein 5.4 L Albumin 2.7 L Current Medications Generic Name Dose Route Start Last Admin Trade Name Freq PRN Reason Stop Dose Admin Acetaminophen 650 mg 04/01/20 20:00 04/02/20 08:16 Tylenol - PO 04/04/20 19:59 650 mg Q6H KANWAL Administration Al Hydroxide/Mg Hydroxide 30 ml 04/01/20 13:02 Mylanta Oral Suspension - PO Q4H PRN DYSPEPSIA Amlodipine Besylate 5 mg 03/27/20 10:00 04/02/20 09:45 Norvasc - PO 5 mg DAILY KANWAL Administration Aspirin 325 mg 04/02/20 10:00 04/02/20 09:45 Asa - PO 325 mg BID KANWAL Administration Gabapentin 300 mg 04/01/20 22:00 04/02/20 09:44 Neurontin - PO 04/04/20 21:59 300 mg BID KANWAL Administration Lidocaine 1 patch 03/29/20 10:45 04/02/20 09:43 Lidoderm Patch - TP 1 patch DAILY KANWAL Administration Lisinopril 10 mg 03/27/20 10:00 04/02/20 09:44 Prinivil PO 10 mg DAILY KANWAL Administration Magnesium Hydroxide 30 ml 04/01/20 13:02 Milk Of Magnesia - PO PRN PRN CONSTIPATION Miscellaneous 1 each 03/29/20 22:00 04/01/20 21:14 Lidoderm Patch Removal MC Not Given DAILY@2200 KANWAL Multivitamins/Minerals/Vitamin C 1 tab 04/02/20 10:00 04/02/20 09:45 Tab-A-Vit - PO 1 tab DAILY KANWAL Administration Nicotine 21 mg 03/28/20 14:00 04/02/20 09:44 Nicoderm Patch - TD 21 mg DAILY KANWAL Administration Ondansetron HCl 4 mg 04/01/20 13:02 Zofran Injection IVPUSH Q6H PRN NAUSEA Oxycodone HCl 5 mg 04/01/20 13:04 Roxicodone - PO Q3H PRN PAIN LEVEL 1-5 Oxycodone HCl 10 mg 04/01/20 13:04 04/02/20 12:18 Roxicodone - PO 10 mg Q3H PRN Administration PAIN LEVEL 6-10 Pantoprazole Sodium 40 mg 04/02/20 10:00 04/02/20 09:45 Protonix - PO 40 mg DAILY KANWAL Administration Paroxetine HCl 20 mg 03/27/20 10:00 04/02/20 09:45 Paxil - PO 20 mg DAILY KANWAL Administration Senna/Docusate Sodium 2 tablet 04/01/20 22:00 04/02/20 09:45 Pericolace - PO 2 tablet BID KANWAL Administration Sodium Chloride 1 gm 04/01/20 22:00 04/02/20 09:47 Sodium Chloride Tablet - PO 1 gm BID KANWAL Administration ASSESSMENT/PLAN: 50 year-old male with a PMH significant for HTN and severe osteoarthritis of the right hip. Patient is s/p right total hip replacement ROBSON. Diaphoresis Tremors SOB --ECG without significant change, no acute ischemia --troponins x 3 ordered --cardiac monitoring --orthostatics --requested cardiology to revisit r/o Opiate dependence --patient becomes irritable, raises voice demanding larger doses of oxycodone than prescribed; RN inquired about pain meds taken at home, patient became angry and conveyed through his girlfriend he is not to be questioned about the medications he takes at home --will discuss pain management going forward with surgical team --ISTOP inquiry below Hyponatremia --dropped again to 129; spoke with Dr. Teresa's office, preop Na was 130 --fluid restriction 1L --salt tabs s/p Right total hip replacement ROBSON --POD #1 --perioperative antibiotics per surgery --d/c juan c POD 14 Hypertension --BP stable --continue amlodipine, lisinopril Depression --continue paroxetine FEN Fluids: PO intake adequate Electrolytes: replete as indicated Nutrition: regular diet DVT prophylaxis: OOB, ambulation, SCDs, ASA 325mg BID x 6 weeks Physical therapy Dispo: continues to require inpatient care. Full code. I STOP Search Terms: hira ibarra, 1970earch Date: 04/02/2020 13:50:19 PM The Drug Utilization Report below displays all of the controlled substance prescriptions, if any, that your patient has filled in the last twelve months. The information displayed on this report is compiled from pharmacy submissions t o the Department, and accurately reflects the information as submitted by the pharmacies. This report was requested by: Griselda Meléndez | Reference #: [id number] Others' Prescriptions Patient Name: Hira IbarraBirth Date: 1970 Address: [address] [place] [id number]: Male Rx Written Rx Dispensed Drug Quantity Days Supply Prescriber Name Payment Method Dispenser 12/08/2019 12/15/2019 oxycodone-acetaminophen 5-325 mg tab 90 30 Braxton Stanton M Insurance [facility] [employer] 11/14/2019 11/15/2019 oxycodone-acetaminophen 5-325 mg tablet 90 30 Braxton Stanton M Insurance [facility] [employer] 11/08/2019 11/08/2019 oxycodone-acetaminophen 5-325 mg tablet 28 7 Braxton Stanton M Insurance [facility] [employer] 10/23/2019 10/23/2019 hydrocodone-acetaminophen 7.5-325 mg tablet 15 5 Bruno Johnston Insurance [employer] [facility] Patient Name: Hira IbarraBirth Date: 1970 Address: [address] [place] [id number]: Male Rx Written Rx Dispensed Drug Quantity Days Supply Prescriber Name Payment Method Dispenser 03/21/2020 03/21/2020 tramadol hcl 50 mg tablet 20 10 Ozzy Russ [id number] * - Drugs marked with an asterisk are compound drugs. If the compound drug is made up of more than one controlled substance, then each controlled substance will be a separate row in the table. Physical Examination Vital Signs: Vital Signs Temperature 98.7 F 04/02/20 05:00 Pulse Rate 78 09/29/20 05:00 Respiratory Rate 16 04/02/20 08:21 Blood Pressure 121/69 04/02/20 05:00 O2 Sat by Pulse Oximetry (%) 96 04/02/20 08:21 Labs: CBC, BMP 04/02/20 07:00 04/02/20 07:00"
[2020-04-02] MEDS ORDERED: chlordiazePOXIDE HCL 25 MG CAPSULE PO PRN (16:17)
[2020-04-02] MEDS ORDERED: oxyCODONE HCL 5 MG TABLET PO PRN (16:22)
[2020-04-02] MEDS: chlordiazePOXIDE HCL 25 MG CAPSULE PO SCH ×2 (17:22→22:37)
[2020-04-02] MEDS: LIDOCAINE PATCH REMOVAL MC SCH (21:28)
[2020-04-03] MEDS: ACETAMINOPHEN 325 MG TABLET (FP) PO SCH ×2 (02:55→09:00)
[2020-04-03] MEDS: chlordiazePOXIDE HCL 25 MG CAPSULE PO SCH ×2 (04:54→11:50)
[2020-04-03 06:22] VITALS: BP 111/68; PULSE 85; TEMP 98.3
--- NOTE | 2020-04-03 08:27 | PN ---
Progress Note (short form) - Note Progress Note: ORTHOPEDIC SURGERY PROGRESS NOTE Department of Orthopedic Surgery SUBJECTIVE No acute events overnight. No complaints currently. Denies chest pain, shortness of breath, or calf pain. No nausea or vomiting. Tolerating oral intake. Pain controlled. SCD's in place. PHYSICAL EXAMINATION General: Alert, oriented, cooperative and no distress. Right Lower Extremity: Dressing C/D/I; Skin warm, dry, and intact; no lesions, rashes or ulcers noted. Muscle mass equal and symmetric to contralateral side. N o atrophy noted. No masses or effusions noted. No cords or calf tenderness. Abduction pillow in place. No significant calf/ankle edema. ROM of hip consistent with post op total hip. Full passive and active ROM of the knee and ankle and foot, free from pain. Joints stable with no pathologic laxity. EHL/TA/GS motor intact; SILT distally; 2+ DP pulses; Cap refill brisk. Tone and reflexes normal. DVT Exam: No evidence of DVT seen on physical exam; No cords or calf tenderness; No significant calf/ankle edema. Intake & Output 04/01/20 04/02/20 04/03/20 23:59 23:59 23:59 Intake Total 7150 1520 Output Total 2000 550 Balance 5150 970 Intake: IV 2300 IVPB 50 50 Oral 500 1470 Other 4300 Output: Urine 1700 550 Void 1700 550 Estimated Blood Loss 300 Other: Voiding Method Urinal Toilet Toilet # Unmeasured Voids Void 1 Bowel Movement No No Yes # Bowel Movements 1 Body Mass Index (BMI) 30.2 Active Medications Generic Name Dose Route Start Last Admin Trade Name Freq PRN Reason Stop Dose Admin Acetaminophen 650 mg 04/01/20 20:00 04/03/20 02:55 Tylenol - PO 04/04/20 19:59 Not Given Q6H KANWAL Al Hydroxide/Mg Hydroxide 30 ml 04/01/20 13:02 Mylanta Oral Suspension - PO Q4H PRN DYSPEPSIA Amlodipine Besylate 5 mg 03/27/20 10:00 04/02/20 09:45 Norvasc - PO 5 mg DAILY KANWAL Administration Aspirin 325 mg 04/02/20 10:00 04/02/20 21:24 Asa - PO 325 mg BID KANWAL Administration Chlordiazepoxide HCl 50 mg 04/02/20 17:00 04/03/20 04:54 Librium - PO 04/03/20 23:01 50 mg [id number] KANWAL Administration Chlordiazepoxide HCl 25 mg 04/04/20 05:00 Librium - PO 04/04/20 23:01 [id number] KANWAL Chlordiazepoxide HCl 25 mg 04/02/20 16:17 Librium - PO 04/04/20 23:59 Q4H PRN WITHDRAWAL(CONT SUBST) Chlordiazepoxide HCl 10 mg 04/05/20 05:00 Librium - PO 04/05/20 23:01 [id number] KANWAL Chlordiazepoxide HCl 10 mg 04/06/20 05:00 Librium - PO 04/06/20 17:01 Q12H KANWAL Chlordiazepoxide HCl 10 mg 04/05/20 00:00 Librium - PO 04/06/20 00:00 Q4H PRN WITHDRAWAL(CONT SUBST) Chlordiazepoxide HCl 10 mg 04/07/20 05:00 Librium - PO 04/07/20 05:01 ONCE@0500 ONE Gabapentin 300 mg 04/01/20 22:00 04/02/20 21:24 Neurontin - PO 04/04/20 21:59 300 mg BID KANWAL Administration Lidocaine 1 patch 03/29/20 10:45 04/02/20 09:43 Lidoderm Patch - TP 1 patch DAILY KANWAL Administration Lisinopril 10 mg 03/27/20 10:00 04/02/20 09:44 Prinivil PO 10 mg DAILY KANWAL Administration Magnesium Hydroxide 30 ml 04/01/20 13:02 Milk Of Magnesia - PO PRN PRN CONSTIPATION Miscellaneous 1 each 03/29/20 22:00 04/02/20 21:28 Lidoderm Patch Removal MC 1 each DAILY@2200 KANWAL Administration Multivitamins/Minerals/Vitamin C 1 tab 04/02/20 10:00 04/02/20 09:45 Tab-A-Vit - PO 1 tab DAILY KANWAL Administration Nicotine 21 mg 03/28/20 14:00 04/02/20 09:44 Nicoderm Patch - TD 21 mg DAILY KANWAL Administration Ondansetron HCl 4 mg 04/01/20 13:02 Zofran Injection IVPUSH Q6H PRN NAUSEA Oxycodone HCl 5 mg 04/02/20 16:22 Roxicodone - PO Q6H PRN PAIN LEVEL 6-10 Pantoprazole Sodium 40 mg 04/02/20 10:00 04/02/20 09:45 Protonix - PO 40 mg DAILY KANWAL Administration Paroxetine HCl 20 mg 03/27/20 10:00 04/02/20 09:45 Paxil - PO 20 mg DAILY KANWAL Administration Senna/Docusate Sodium 2 tablet 04/01/20 22:00 04/02/20 21:24 Pericolace - PO 2 tablet BID KANWAL Administration Sodium Chloride 1 gm 04/01/20 22:00 04/02/20 21:24 Sodium Chloride Tablet - PO 1 gm BID KANWAL Administration Vital Signs (last) Temp Pulse Resp BP Pulse Ox 98.3 F 85 18 111/68 96 04/03/20 06:00 04/03/20 06:00 04/03/20 06:00 04/03/20 06:00 04/03/20 07:38 Laboratory (coagulation) PT with INR 12.50 SEC (9.7-13.0) 03/26/20 14:06 Laboratory 04/02/20 07:00 04/02/20 07:00 ASSESSMENT AND PLAN Mr. Ford is a 50 year old male s/p Right MICHAELA POD 2 - Pain control: Transition to oral pain medications, minimize narcotic use - DVT prophylaxis (ASA 325 BID x 6 weeks) ; SCD's b/l; Spoke to the patient about importance of the SCDs to prevent blood clots and he agreed to keep them on. - Ice to right hip - Elevate HOB, encourage oral intake - Appreciate medical management (Nutrition optimization, decubitus precautions heel/sacrum) - WBAT RLE; Physical Therapy Duc. Strict Posterior Hip Precautions. Abduction pillow while in bed. - DC Ayaz POD 14, follow up in office for staple removal. - Change dressing POD 3, and every 5 days thereafter.
[2020-04-03 08:51] LABS: ALBUMIN 2.5 g/dl (3.4-5.0); BILIRUBIN,TOTAL 0.8 mg/dl (0.2-1); CREATININE 0.5 mg/dl (0.55-1.3); MAGNESIUM 1.9 mg/dL (1.8-2.4); POTASSIUM 3.6 mmol/L (3.5-5.1); TOT PROT 5.3 g/dl (6.4-8.2)
[2020-04-03 08:54] LABS: HEMATOCRIT 31.2 % (35.4-49); HEMOGLOBIN 10.5 GM/dl (11.7-16.9); MCH 32.2 pg (25.7-33.7); MCHC 33.5 g/dl (32.0-35.9); MEAN CELL VOLUME 96.1 fl (80-96); MEAN PLT VOLUME 8.3 fl (7.5-11.1); PLATELET COUNT 334 K/MM3 (134-434); RBC 3.25 M/mm3 (4.00-5.60); RDW 12.3 % (11.9-15.9); WHITE BLOOD COUNT 13.1 K/mm3 (4.0-10.8)
--- NOTE | 2020-04-03 09:18 | PN ---
Progress Note, Physician History of Present Illness: Pt seen and examined at bedside. He is awake and alert. He is eager to go home. He denies headache or dizziness. - Current Medication List Current Medications: Active Medications Acetaminophen (Tylenol -) 650 mg PO Q6H REPLACED BY [facility] Stop: 04/04/20 19:59 Last Admin: 04/03/20 02:55 Dose: Not Given Documented by: Al Hydroxide/Mg Hydroxide (Mylanta Oral Suspension -) 30 ml PO Q4H PRN PRN Reason: DYSPEPSIA Amlodipine Besylate (Norvasc -) 5 mg PO DAILY REPLACED BY [facility] Last Admin: 04/02/20 09:45 Dose: 5 mg Documented by: Aspirin (Asa -) 325 mg PO BID REPLACED BY [facility] Last Admin: 04/02/20 21:24 Dose: 325 mg Documented by: Chlordiazepoxide HCl (Librium -) 50 mg PO [id number] REPLACED BY [facility] Stop: 04/03/20 23:01 Last Admin: 04/03/20 04:54 Dose: 50 mg Documented by: Chlordiazepoxide HCl (Librium -) 25 mg PO [id number] REPLACED BY [facility] Stop: 04/04/20 23:01 Chlordiazepoxide HCl (Librium -) 25 mg PO Q4H PRN PRN Reason: WITHDRAWAL(CONT SUBST) Stop: 04/04/20 23:59 Chlordiazepoxide HCl (Librium -) 10 mg PO [id number] REPLACED BY [facility] Stop: 04/05/20 23:01 Chlordiazepoxide HCl (Librium -) 10 mg PO Q12H REPLACED BY [facility] Stop: 04/06/20 17:01 Chlordiazepoxide HCl (Librium -) 10 mg PO Q4H PRN PRN Reason: WITHDRAWAL(CONT SUBST) Stop: 04/06/20 00:00 Chlordiazepoxide HCl (Librium -) 10 mg PO ONCE@0500 ONE Stop: 04/07/20 05:01 Folic Acid (Folic Acid -) 1 mg PO DAILY REPLACED BY [facility] Gabapentin (Neurontin -) 300 mg PO BID REPLACED BY [facility] Stop: 04/04/20 21:59 Last Admin: 04/02/20 21:24 Dose: 300 mg Documented by: Lidocaine (Lidoderm Patch -) 1 patch TP DAILY REPLACED BY [facility] Last Admin: 04/02/20 09:43 Dose: 1 patch Documented by: Lisinopril (Prinivil) 10 mg PO DAILY REPLACED BY [facility] Last Admin: 04/02/20 09:44 Dose: 10 mg Documented by: Magnesium Hydroxide (Milk Of Magnesia -) 30 ml PO PRN PRN PRN Reason: CONSTIPATION Miscellaneous (Lidoderm Patch Removal) 1 each MC DAILY@2200 REPLACED BY [facility] Last Admin: 04/02/20 21:28 Dose: 1 each Documented by: Multivitamins/Minerals/Vitamin C (Tab-A-Vit -) 1 tab PO DAILY REPLACED BY [facility] Last Admin: 04/02/20 09:45 Dose: 1 tab Documented by: Nicotine (Nicoderm Patch -) 21 mg TD DAILY REPLACED BY [facility] Last Admin: 04/02/20 09:44 Dose: 21 mg Documented by: Ondansetron HCl (Zofran Injection) 4 mg IVPUSH Q6H PRN PRN Reason: NAUSEA Oxycodone HCl (Roxicodone -) 5 mg PO Q6H PRN PRN Reason: PAIN LEVEL 6-10 Pantoprazole Sodium (Protonix -) 40 mg PO DAILY REPLACED BY [facility] Last Admin: 04/02/20 09:45 Dose: 40 mg Documented by: Paroxetine HCl (Paxil -) 20 mg PO DAILY REPLACED BY [facility] Last Admin: 04/02/20 09:45 Dose: 20 mg Documented by: Senna/Docusate Sodium (Pericolace -) 2 tablet PO BID REPLACED BY [facility] Last Admin: 04/02/20 21:24 Dose: 2 tablet Documented by: Sodium Chloride (Sodium Chloride Tablet -) 1 gm PO BID REPLACED BY [facility] Last Admin: 04/02/20 21:24 Dose: 1 gm Documented by: Thiamine HCl (Vitamin B1 -) 100 mg PO DAILY REPLACED BY [facility] - Objective Vital Signs: Vital Signs Temperature 98.3 F 04/03/20 06:00 Pulse Rate 85 04/03/20 06:00 Respiratory Rate 18 04/03/20 06:00 Blood Pressure 111/68 04/03/20 06:00 O2 Sat by Pulse Oximetry (%) 96 04/03/20 07:38 Constitutional: Yes: Calm Eyes: Yes: Conjunctiva Clear HENT: Yes: Atraumatic Neck: Yes: Supple Cardiovascular: Yes: S1, S2 Respiratory: Yes: CTA Bilaterally Genitourinary: Yes: WNL Musculoskeletal: Yes: Other (hip pain improved) Edema: No Neurological: Yes: Oriented Psychiatric: Yes: Oriented Labs: CBC, BMP 04/03/20 07:21 04/03/20 07:21 INR, PTT INR 1.06 (0.83-1.09) 03/26/20 14:06 Assessment/Plan Current Medications Generic Name Dose Route Start Last Admin Trade Name Freedith PRN Reason Stop Dose Admin Acetaminophen 650 mg 04/01/20 20:00 04/03/20 02:55 Tylenol - PO 04/04/20 19:59 Not Given Q6H KANWAL Al Hydroxide/Mg Hydroxide 30 ml 04/01/20 13:02 Mylanta Oral Suspension - PO Q4H PRN DYSPEPSIA Amlodipine Besylate 5 mg 03/27/20 10:00 04/02/20 09:45 Norvasc - PO 5 mg DAILY KANWAL Administration Aspirin 325 mg 04/02/20 10:00 04/02/20 21:24 Asa - PO 325 mg BID KANWAL Administration Chlordiazepoxide HCl 50 mg 04/02/20 17:00 04/03/20 04:54 Librium - PO 04/03/20 23:01 50 mg [id number] KANWAL Administration Chlordiazepoxide HCl 25 mg 04/04/20 05:00 Librium - PO 04/04/20 23:01 [id number] KANWAL Chlordiazepoxide HCl 25 mg 04/02/20 16:17 Librium - PO 04/04/20 23:59 Q4H PRN WITHDRAWAL(CONT SUBST) Chlordiazepoxide HCl 10 mg 04/05/20 05:00 Librium - PO 04/05/20 23:01 [id number] KANWAL Chlordiazepoxide HCl 10 mg 04/06/20 05:00 Librium - PO 04/06/20 17:01 Q12H KANWAL Chlordiazepoxide HCl 10 mg 04/05/20 00:00 Librium - PO 04/06/20 00:00 Q4H PRN WITHDRAWAL(CONT SUBST) Chlordiazepoxide HCl 10 mg 04/07/20 05:00 Librium - PO 04/07/20 05:01 ONCE@0500 ONE Folic Acid 1 mg 04/03/20 10:00 Folic Acid - PO DAILY KANWAL Gabapentin 300 mg 04/01/20 22:00 04/02/20 21:24 Neurontin - PO 04/04/20 21:59 300 mg BID KANWAL Administration Lidocaine 1 patch 03/29/20 10:45 04/02/20 09:43 Lidoderm Patch - TP 1 patch DAILY KANWAL Administration Lisinopril 10 mg 03/27/20 10:00 04/02/20 09:44 Prinivil PO 10 mg DAILY KANWAL Administration Magnesium Hydroxide 30 ml 04/01/20 13:02 Milk Of Magnesia - PO PRN PRN CONSTIPATION Miscellaneous 1 each 03/29/20 22:00 04/02/20 21:28 Lidoderm Patch Removal MC 1 each DAILY@2200 KANWAL Administration Multivitamins/Minerals/Vitamin C 1 tab 04/02/20 10:00 04/02/20 09:45 Tab-A-Vit - PO 1 tab DAILY KANWAL Administration Nicotine 21 mg 03/28/20 14:00 04/02/20 09:44 Nicoderm Patch - TD 21 mg DAILY KANWAL Administration Ondansetron HCl 4 mg 04/01/20 13:02 Zofran Injection IVPUSH Q6H PRN NAUSEA Oxycodone HCl 5 mg 04/02/20 16:22 Roxicodone - PO Q6H PRN PAIN LEVEL 6-10 Pantoprazole Sodium 40 mg 04/02/20 10:00 04/02/20 09:45 Protonix - PO 40 mg DAILY KANWAL Administration Paroxetine HCl 20 mg 03/27/20 10:00 04/02/20 09:45 Paxil - PO 20 mg DAILY REPLACED BY [facility] Administration Senna/Docusate Sodium 2 tablet 04/01/20 22:00 04/02/20 21:24 Pericolace - PO 2 tablet BID KANWAL Administration Sodium Chloride 1 gm 04/01/20 22:00 04/02/20 21:24 Sodium Chloride Tablet - PO 1 gm BID KANWAL Administration Thiamine HCl 100 mg 04/03/20 10:00 Vitamin B1 - PO DAILY REPLACED BY [facility] Laboratory Tests 03/27/20 04/02/20 09:30 12:00 Ur Random Sodium < 18 L 24 L Impression 1. hyponatremia 2. htn 3. depression 4. sciatica 5. arthritis Plan - sodium is improving - cont salt tab - cont free water restriction - bp stable - will need outpt follow up and sodium monitoring - can see in office - low urine sodium speaks against siadh
[2020-04-03] MEDS ORDERED: FOLIC ACID 1 MG TABLET (FP) PO SCH (10:00)
[2020-04-03] MEDS ORDERED: THIAMINE HCL 100 MG TABLET (FP) PO SCH (10:00)
--- NOTE | 2020-04-03 10:59 | EKG ---
Test Reason : Blood Pressure : / mmHG Vent. Rate : 086 BPM Atrial Rate : 086 BPM P-R Int : 144 ms QRS Dur : 098 ms QT Int : 372 ms P-R-T Axes : 055 055 033 degrees QTc Int : 445 ms NORMAL SINUS RHYTHM NORMAL ECG WHEN COMPARED WITH ECG OF 26-MAR-2020 14:12, NO SIGNIFICANT CHANGE WAS FOUND Confirmed by MD Sanchez Edward ([id number]) on 04/03/2020 10:58:25 AM Referred By: ALEXANDR KC Confirmed By:Berto Sanchez MD
--- NOTE | 2020-04-03 11:05 | DS ---
Physical Exam: SUBJECTIVE: Patient seen and examined OBJECTIVE: Vital Signs Period Temp Pulse Resp BP Sys/Isabel Pulse Ox Last 24 Hr 98.1 F-99.6 F 78-86 17-18 111-120/55-73 92-96 PHYSICAL EXAM GENERAL: The patient is awake, alert, and fully oriented, in no acute distress. HEAD: Normal with no signs of trauma. EYES: PERRL, extraocular movements intact, sclera anicteric, conjunctiva clear. ENT: Ears normal, nares patent, oropharynx clear without exudates, moist mucous membranes. NECK: Trachea midline, full range of motion, supple. LUNGS: Breath sounds equal, clear to auscultation bilaterally, no wheezes, no crackles, no accessory muscle use. HEART: Regular rate and rhythm, S1, S2 without murmur, rub or gallop. ABDOMEN: Soft, nontender, nondistended, normoactive bowel sounds, no guarding, no rebound, no hepatosplenomegaly, no masses. EXTREMITIES: 2+ pulses, warm, well-perfused, no edema. NEUROLOGICAL: Cranial nerves II through XII grossly intact. Normal speech, gait not observed. PSYCH: Normal mood, normal affect. SKIN: Warm, dry, normal turgor, no rashes or lesions noted. LABS Laboratory Results - last 24 hr 04/02/20 04/02/20 04/03/20 12:00 15:20 07:21 WBC 13.1 H RBC 3.25 L Hgb 10.5 L Hct 31.2 L MCV 96.1 H MCH 32.2 MCHC 33.5 RDW 12.3 Plt Count 334 MPV 8.3 Sodium Potassium Chloride Carbon Dioxide Anion Gap BUN Creatinine Est GFR (CKD-EPI)AfAm Est GFR (CKD-EPI)NonAf Random Glucose Calcium Magnesium Total Bilirubin AST ALT Alkaline Phosphatase Troponin I < 0.03 Total Protein Albumin Urine Osmolality 705 D Ur Random Sodium 24 L Ur Random Potassium 43.6 Ur Random Chloride 57 L 04/03/20 07:21 WBC RBC Hgb Hct MCV MCH MCHC RDW Plt Count MPV Sodium 133 L Potassium 3.6 Chloride 100 Carbon Dioxide 24 Anion Gap 9 BUN 7.0 Creatinine 0.5 L Est GFR (CKD-EPI)AfAm 146.45 Est GFR (CKD-EPI)NonAf 126.36 Random Glucose 93 Calcium 8.0 L Magnesium 1.9 Total Bilirubin 0.8 AST 31 ALT 42 Alkaline Phosphatase 61 Troponin I Total Protein 5.3 L Albumin 2.5 L Urine Osmolality Ur Random Sodium Ur Random Potassium Ur Random Chloride Date of Admission:03/26/20 Date of Discharge: 04/03/20 Pre hospital course 50 year-old male with a PMH significant for HTN and severe osteoarthritis of the right hip. Was scheduled for hip replacement surgery a month ago but was postponed due to infected teeth. Admitted on 03/26 for worsening pain in the right hip and found to have a fracture of the right femoral head. Also admitted for severe hyponatremia. Hospital course s/p Right total hip replacement ROBSON --POD #2 date of discharge --pain has been well-controlled over past 24 hours without pain meds; will take Tyelenol at home --will need VNS for wound care dressing changes on POD #3 (04/04) and every 5 days thereafter --to see Dr. Russ on 04/15 for staple removal --will need home PT Hyponatremia --Na 120 on admission, improved with fluid restriction and salt tabs --needs outpatient followup Hypertension --BP stable --continued amlodipine, lisinopril Depression --continued paroxetine r/o alcohol abuse --documented history of alcohol use, and exhibited signs of withdrawal (irritability, anxiety, diaphoresis, bilateral hand tremors); treated with several doses of librium to very good effect; at time of discharge patient denies he has an alcohol problem, states he only drinks once every 2 weeks, and he does not feel he is in withdrawal; discharged off librium Minutes to complete discharge: 35 Discharge Summary Problems reviewed: Yes Reason For Visit: OSTEOARTHRITIS HIP PAIN Current Active Problems Chronic pain (Acute) Depression (Acute) HTN (hypertension) (Acute) Hip fracture, right (Acute) Hip pain, right (Acute) Hyponatremia (Acute) Osteoarthritis (Acute) Prophylactic measure (Acute) Tobacco dependence (Acute) Condition: Improved - Instructions Diet, Activity, Other Instructions: You must follow up with Dr. Russ on April 15, 2020 to have your juan c removed. Please call his office today to make the appointment. You will need Visiting Nurse Service to change your dressing. Arrangements have also been made for home physical therapy. Take Tylenol for pain. Do not take more than 4,000mg in any 24 hours period. Your sodium was very low during your hospital stay. A prescription has been sent to your pharmacy for salt tabs. Take this medication as directed. You will need to have followup blood work to check your sodium levels. You can do this with Dr. Teresa. Please call his office and make an appointment to see him in 2 weeks. You must also take aspirin 325mg twice daily for 6 weeks to avoid blood clots. A prescription has been sent to your pharmacy for aspirin. You can also buy it over the counter. Posterior Hip Precautions: Do not cross the leg you had surgery on over your other leg. (Do not cross your legs.)Use an elevated toilet seat. Do not sit on low chairs or beds. Use purple pillow (abductor) when lying in bed. Referrals: Freedom Teresa MD [Primary Care Provider] - 2 Weeks Ozzy Russ DO [Staff Physician] - 2 Weeks Disposition: HOME - Home Medications Comprehensive Discharge Medication List: Ambulatory Orders Amlodipine Besylate 5 mg PO DAILY 04/25/15 Paroxetine HCl [Paxil -] 20 mg PO DAILY 04/25/15 Ibuprofen 600 mg PO QID PRN #20 tablet 09/06/19 Lisinopril [Prinivil] 10 mg PO DAILY 02/13/20 This patient is new to me today: No Emergency Visit: Yes ED Registration Date: 03/26/20 Care time: The patient presented to the Emergency Department on the above date and was hospitalized for further evaluation of their emergent condition. Critical Care patient: No - Discharge Referral Referred to [facility] Med P.C.: No
[2020-04-03] MEDS: ASPIRIN 325 MG TABLET PO SCH (11:18)
[2020-04-03] MEDS: PARoxetine HCL 20 MG TABLET PO SCH (11:19)
[2020-04-03] MEDS: SENNOSIDES/DOCUSATE COMBO (SENNA PLUS) TABLET (UD) PO SCH (11:19)
[2020-04-03] MEDS: GABAPENTIN 300 MG CAPSULE PO SCH (11:19)
[2020-04-03] MEDS: amLODIPine BESYLATE 5 MG TABLET (FP) PO SCH (11:19)
[2020-04-03] MEDS: MULTIVITAMINS (DAILY MVI) TABLET (FP) PO SCH (11:19)
[2020-04-03] MEDS: SODIUM CHLORIDE 1 GM TABLET PO SCH (11:19)
[2020-04-03] MEDS: PANTOPRAZOLE 40 MG TABLET PO SCH (11:19)
[2020-04-03] MEDS: NICOTINE 21 MG/24 HOURS TOPICAL PATCH TD SCH (11:19)
[2020-04-03] MEDS: LISINOPRIL 10 MG TABLET PO SCH (11:19)
[2020-04-03] MEDS: LIDOCAINE 5% TOPICAL PATCH TP SCH (11:19)
--- NOTE | 2020-04-03 17:38 | PATH ---
Surgical Pathology Report Patient Name: ALIE HUA Med. Rec. #: [id number] /Age/Gender: 1970 (Age: 50) / M Account: [id number] Location: [facility] Taken: 04/01/2020 Received: 04/01/2020 Reported: 04/03/2020 Physicians: Bernard Krishnamurthy M.D. Specimen(s) Received RIGHT FEMORAL HEAD Clinical History Osteoarthritis right hip Final Diagnosis RIGHT FEMORAL HEAD, RESECTION: DEGENERATIVE JOINT DISEASE, RIGHT HIP. Electronically Signed Del Johnston M.D. Gross Description Received in formalin labeled "right femoral head," is a 4.7 x 4.6 x 2.5 cm portion of femoral head. The margin of resection is red-brown, jagged and hemorrhagic. The articular surface displays a 3.5 cm in greatest dimension area of eburnation. The underlying trabecular bone is yellow-brown and focally hemorrhagic with possible necrosis. Also received within the same container is a 7.4 x 4.2 x 4.0 cm aggregate of red-brown, hemorrhagic portions of bone, the largest of which is consistent with a portion of femoral neck. [employer] sections are submitted in one cassette, following decalcification. 04/02/2020 [facility]04/02/2020
[2020-04-04] MEDS ORDERED: chlordiazePOXIDE HCL 25 MG CAPSULE PO SCH (05:00)
[2020-04-05] MEDS ORDERED: chlordiazePOXIDE HCL 10 MG CAPSULE PO PRN
[2020-04-05] MEDS ORDERED: chlordiazePOXIDE HCL 10 MG CAPSULE PO SCH (05:00)
[2020-04-06] MEDS ORDERED: chlordiazePOXIDE HCL 10 MG CAPSULE PO SCH (05:00)
[2020-04-07] MEDS ORDERED: chlordiazePOXIDE HCL 10 MG CAPSULE PO ONE (05:00)
== END 2020-04-03 11:50 | disposition home or self-care (01) | DRG 470 ==
LOC: JER 13:30 → SUPCPDRO 13:30 → JERBED 13:42 → UNDOADMOB 13:42 → INTOOBSV 13:42 → JERBED 22:44 → UNDOADMOB 22:44 → OBSVTOIN 23:41 → JERBED 23:41 → INTOOBSV 23:41 → JERBED 03-27 00:40 → J5S 03-27 00:40 → UNDODISIN 03-28 15:55 → FM/S 03-28 16:23
PROVIDERS: ATTEND Nurse Practitioner Acute Care
PROC: 0SR903A Replacement of Right Hip Joint with Ceramic Synthetic Substitute, Uncemented, Open Approach (ICD-10-PCS; principal; 2020-04-01 09:34)
DX: M16.11 Unilateral primary osteoarthritis, right hip (principal); E87.1 Hypo-osmolality and hyponatremia; D72.829 Elevated white blood cell count, unspecified; I10 Essential (primary) hypertension; F17.210 Nicotine dependence, cigarettes, uncomplicated; M54.30 Sciatica, unspecified side; F41.8 Other specified anxiety disorders; E66.9 Obesity, unspecified; Z68.30 Body mass index [BMI] 30.0-30.9, adult; G89.29 Other chronic pain
CPT/HCPCS: 36415; 71045-TC-FY; 73502-TC-RT-FY; 73523-TC-FY; 80048; 80053; 80061; 80076; 80307; 81003; 82436; 82550; 82553; 82565; 83721; 83735; 83930; 83935; 84100; 84133; 84300; 84443; 84484; 85025; 85027; 85610; 85651; 85730; 86850; 86900; 86901; 87086; 88304-TC; 88311-TC; 93005; 93010; 93306-TC; 93970-TC; 94760; 97116-GP; 97161-GP; 99285-25; J1644; U0003

== ENCOUNTER 2021-04-12 12:54 | Emergency (ER) | payer OTHER ==
[2021-04-12 13:10] VITALS: TEMP 98.1; BMI 31.7
[2021-04-12] MEDS ORDERED: ACETAMINOPHEN 500 MG TABLET (FP) PO ONE (13:23)
[2021-04-12] MEDS ORDERED: ACETAMINOPHEN 500 MG TABLET (FP) ONE (13:27)
[2021-04-12 18:44] VITALS: BP 148/70; PULSE 72
[2021-04-12] MEDS ORDERED: ASPIRIN 81 MG CHEWABLE TABLETS ONE (21:24)
== END 2021-04-12 20:26 | disposition home or self-care (01) ==
LOC: JERFT 12:54 → JER 12:54
DX: M25.551 Pain in right hip (principal); W01.0XXA Fall on same level from slipping, tripping and stumbling without subsequent striking against object, initial encounter
CPT/HCPCS: 72131-TC; 73523-TC-FY; 73700-TC-RT; 99285-25